=== PATIENT | female | born 1970 | race Caucasian/White ===

== ENCOUNTER 2023-05-11 12:24 | Inpatient (IN) | payer OTHER, SELFPAY ==
[2023-05-11] VITALS (69 sets, daily range): BP systolic 103–134; BP diastolic 57–94; PULSE 89–110; RESP 12–16; TEMP 36.7–37.1; O2SAT 84–99
[2023-05-11 12:47] LABS: Appearance Urine Clear (Clear); Bilirubin Urine Negative (Negative); Blood Urine Negative (Negative); Color Urine Yellow (Yellow); Glucose Urine Negative (Negative); Ketones Urine Negative (Negative); Leukocyte Esterase Urine Negative (Negative); Nitrite Urine Negative (Negative); Protein Urine Negative (Negative); Specific Gravity Urine 1.015 (1.000-1.030); Urobilinogen Urine 0.2 (0.2-1.0)
[2023-05-11 12:56] LABS: Lactate Sepsis w/Reflex* 0.7 mmol/L (0.5-1.9)
[2023-05-11 12:58] LABS: Basophils Percent Auto 0.2 % (0.0-3.0); Eosinophils Percent Auto 0.4 % (0.0-7.0); Hematocrit 42.9 % (33.0-51.0); Hemoglobin* 14.2 gm/dL (12.0-16.0); Immature Granulocytes Pct Auto 0.1 %; Lymphocytes Percent Auto 22.6 % (20-44); Mean Corpuscular HGB Conc 33 gm/dL (32-36); Mean Corpuscular Hemoglobin 30 pg (26-34); Mean Corpuscular Volume 92 fL (80-100); Monocytes Percent Auto 9.2 % (0.0-11.0); Neutrophils Percent Auto 67.5 % (42.0-72.0); Platelet Count* 352 K/uL (140-440); RDW Coefficient of Variation % 11.7 % (11.5-15.5); Red Blood Count 4.69 m/uL (4.00-5.20); White Blood Count* 16.36 K/uL (4.50-11.00)
[2023-05-11 13:01] LABS: Ur HCG Qualitative* Negative (Negative)
--- NOTE | 2023-05-11 13:01 | ED.GENADULT ---
HPI - General Adult General Date Seen: 05/11/23 Chief complaint: Abdominal Pain Stated complaint: Lower R abdominal pain Time Seen by Provider: 05/11/23 12:35 Source: patient and RN notes reviewed Mode of arrival: ambulatory Limitations: no limitations History of Present Illness HPI narrative: Patient is a 52-year-old woman here for evaluation of abdominal pain. She says that she was in [place] last week, driving her parents down to where they stay for the winter. She says that she went to a barbecue place on Monday, Monday night into Monday developed right lower quadrant pain associated with nausea, some vomiting and she did have some diarrhea although she wonders if that is because she was taking MiraLax for constipation. No bloody stools. She had a temp of a 100.1? yesterday. The abdominal pain has persisted which is why she comes in today although it is very mild at this point. She has not had urinary symptoms. She says that in the fall she ate at the same barbecue place and had the exact same thing happened, with the exact same abdominal pain, but it resolved after 3 or 4 days and now it is been close to a week and it has not completely gone away. She denies prior abdominal surgeries. She does not have a history of any pelvic pathology such as ovarian cysts. She says she feels very hungry but she has not been able to think of anything that sounded good to eat so she has just been drinking fluids. Related Data Home Medications Medication Instructions Recorded Confirmed No Known Home Medications 05/11/23 05/11/23 Allergies Allergy/AdvReac Type Severity Reaction Status Date / Time No Known Drug Allergies Allergy Verified 12/01/22 13:55 Review of Systems Status of ROS: Reports: 10 or more systems reviewed and unremarkable except as noted in History and below [facility] Medical History (Updated 05/11/23 @ 14:55 by Ondina Peña MD) Recurrent low back pain ?M54.50 - Low back pain, unspecified (ICD-10) Acute back pain ?M54.9 - Dorsalgia, unspecified (ICD-10) Surgical History (Updated 05/11/23 @ 14:54 by Ondina Peña MD) S/P tonsillectomy ?Z90.89 - Acquired absence of other organs (ICD-10) Social History (Updated 05/11/23 @ 14:54 by Ondina Peña MD) Narrative: Admits to smoking and drinking alcohol at least twice a week. 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 Smoking Status: Current every day smoker How often do you have six or more drinks on one occasion: Never AUDIT-C Alcohol total score: 0 Non-prescribed substance use: denies use Exam Narrative: Exam Narrative: Vital signs as noted above. In general, an alert, well-appearing patient. Head: Normocephalic, atraumatic. Eyes: Pupils are equal reactive. Extraocular movements are full. Conjunctivae are normal. ENT: Mucous membranes are moist. Throat is normal. Neck: Supple without lymphadenopathy. Heart: Regular rate and rhythm. No murmur or rub. Lungs: Clear bilaterally. No increased work of breathing, crackles or wheezes. Abdomen: Soft and nondistended. Bowel sounds present. She has some focal tenderness in the right lower quadrant although she notes that it is most tender to palpate from the lateral edge of the abdomen and not directly over McBurney's point. She does not have rebound guarding or rigidity. No CVA tenderness. Negative Ruffin's. Extremities: Well perfused. No edema. No calf tenderness. Pulses intact. Neurologic: Patient is alert and oriented to person and place. Speech is fluent. Face is symmetric. Moves all extremities equally. Affect: Normal. Skin: Warm and dry. Well perfused. Const: Vital Signs, click to edit/add: Vital Signs - 24 hr 05/11/23 12:30 Temperature 98.0 F Pulse Rate [Pulse Oximeter] 93 Respiratory Rate 16 Blood Pressure [Ri ght Upper Arm] 129/84 Pulse Oximetry 96 Oxygen Delivery Me thod Room Air Documenting provider has reviewed patient's vital signs: yes Course Course ED Course: Recommended to her that we start with some labs, including a UA. With symptoms for almost 2 week if this does represent a somewhat atypical cholecystitis or appendicitis, would expect to see some abnormalities on lab testing. Declines need for anything for pain. Other diagnostic considerations include colitis, diverticulitis, ovarian cyst, UTI, pyelonephritis, kidney stone among others. Labs are notable for a white blood cell count of 16.4, hemoglobin is 14.2, normal platelets. Lactate was normal at 0.7, LFTs unremarkable. Lipase was 111. Urinalysis was negative aside from 2-5 white blood cells, few squames, few bacteria. test negative. Because of the elevated white blood cell count I did elect to do a CT of the abdomen to evaluate her appendix. By my review, there are inflammatory changes in the right lower quadrant and a dilated tubular structure which I suspect is the appendix. Final radiology read pending. Final radiology report of acute uncomplicated appendicitis. Discussed with patient and with general surgery. Transferred operating room for appendectomy. Vital Signs Vital signs: Initial Vital Signs Temperature 98.0 F 05/11/23 12:30 Temperature Source Temporal Artery Scan 05/11/23 12:30 Pulse Rate 93 05/11/23 12:30 Respiratory Rate 16 05/11/23 12:30 Blood Pressure 129/84 05/11/23 12:30 Blood Pressure Mean 99 05/11/23 12:30 Blood Pressure Position Sitting 05/11/23 12:30 Pulse Oximetry 96 05/11/23 12:30 Oxygen Delivery Method Room Air 05/11/23 12:30 Vital Signs Temperature 98.0 F 05/11/23 12:30 Pulse Rate 93 05/11/23 12:30 Respiratory Rate 16 05/11/23 12:30 Blood Pressure 129/84 05/11/23 12:30 Pulse Oximetry 96 05/11/23 12:30 Oxygen Delivery Method Room Air 05/11/23 12:30 Temperature 98.0 F 05/11/23 12:30 Pulse Rate 93 05/11/23 12:30 Respiratory Rate 16 05/11/23 12:30 Blood Pressure 129/84 05/11/23 12:30 Pulse Oximetry 96 05/11/23 12:30 Oxygen Delivery Method Room Air 05/11/23 12:30 Medications Administered Medications: Generic Name Dose Route Start Last Admin Trade Name Freq PRN Reason Stop Dose Admin Lactated Ringer's 1,000 mls @ 100 mls/hr 05/11/23 14:45 05/11/23 14:53 Lactated Ringers 1000 Ml IV 100 mls/hr .Q10H ANTHONY Administration Discontinued Medications Generic Name Dose Route Start Last Admin Trade Name Freq PRN Reason Stop Dose Admin Cefazolin Sodium 2 gm 05/11/23 14:51 05/11/23 15:25 Cefazolin 2 Gm Inj IVP 05/11/23 14:52 2 gm ONCE ONE Administration Medical Decision Making Lab Data Labs: Lab Results 05/11/23 05/11/23 05/11/23 Range/Units 12:40 12:50 12:55 WBC 16.36 H (4.50-11.00) K/uL RBC 4.69 (4.00-5.20) m/uL Hgb 14.2 (12.0-16.0) gm/dL Hct 42.9 (33.0-51.0) % MCV 92 (80-100) fL MCH 30 (26-34) pg MCHC 33 (32-36) gm/dL RDW Coeff of Jenifer 11.7 (11.5-15.5) % Plt Count 352 (140-440) K/uL Neut % (Auto) 67.5 (42.0-72.0) % Lymph % (Auto) 22.6 (20-44) % [place] % (Auto) 9.2 (0.0-11.0) % Eos % (Auto) 0.4 (0.0-7.0) % Baso % (Auto) 0.2 (0.0-3.0) % Neut # (Auto) 11.00 H (1.7-7.0) K/uL Lymph # (Auto) 3.70 H (0.90-2.90) K/uL [place] # (Auto) 1.50 H (0.00-0.90) K/UL Eos # (Auto) 0.10 (0.00-0.50) K/uL Baso # (Auto) 0.00 (0.00-0.30) K/uL Abs Immat Gran (auto) 0.00 (0.00-0.30) K/uL Imm/Tot Granulo (auto) 0.1 % Sodium 134 L (135-149) mmol/L Potassium 4.0 (3.6-5.1) mmol/L Chloride 101 (96-114) mmol/L Carbon Dioxide 28 (20-32) mmol/L Anion Gap 5 L (7-15) mEq/L BUN 8 (7-30) mg/dL Creatinine 0.5 (0.5-1.5) mg/dL Estimated GFR 113 ml/min Glucose 110 (60-115) mg/dL Lactate 0.7 (0.5-1.9) mmol/L Calcium 9.6 (8.4-10.6) mg/dL Total Bilirubin 0.3 (0.1-1.5) mg/dL Direct Bilirubin 0.2 (0.0-0.5) mg/dL AST 24 (12-35) U/L ALT 30 (4-35) U/L Alkaline Phosphatase 121 (40-150) U/L C-Reactive Protein 11.9 H (0.5-1.0) mg/dL Total Protein 7.4 (6.0-8.3) g/dL Albumin 4.3 (3.3-5.0) g/dL Lipase 111 (23-300) U/L Urine Color Yellow (Yellow) Urine Appearance Clear (Clear) Urine pH 6.0 (5.0-8.5) Ur Specific [place] 1.015 (1.000-1.030) Urine Protein Negative (Negative) Urine Glucose (UA) Negative (Negative) Urine Ketones Negative (Negative) Urine Blood Negative (Negative) Urine Nitrite Negative (Negative) Urine Bilirubin Negative (Negative) Urine Urobilinogen 0.2 (0.2-1.0) Ur Leukocyte Esterase Negative (Negative) Urine RBC 0-2 (0-2) Urine WBC 2-5 (0-5) Ur Squamous Epith Cells Few (None-Few) Urine Bacteria Few A (None) Urine HCG, Qual Negative (Negative)
[2023-05-11 13:04] LABS: Bacteria Urine Few; RBC Urine 0-2 (0-2); Squamous Epithelial Cell Urine Few (None-Few)
[2023-05-11 13:04] LABS: Slide Review Reflex No
--- NOTE | 2023-05-11 13:06 | CT_ITS ---
Patient: HOLLY JOHNSON Facility:?[facility] Patient ID:?[id number] Site Patient ID:?[id number]. Site :?[id number] Study:?CT-Abdomen/Pelvis W/ ISOVUE 370-05/11/2023 1:43:02 PM Ordering Physician:ALYSON Final Report: Indication: Right lower quadrant pain Technique: CT abdomen/pelvis with IV contrast, 105 mL Isovue 370 Comparison: None Findings: The lower thorax is unremarkable. The liver, gallbladder, spleen, pancreas, adrenal glands, kidneys, ureters, bladder, uterus, and bilateral ovaries are unremarkable. There is no evidence of bowel obstruction. The appendix is dilated to 2.0 centimeters with moderate periappendiceal inflammatory changes. No periappendiceal abscess. No free fluid or free air. No abdominopelvic lymphadenopathy. The vasculature is unremarkable. The soft tissues and osseous structures are unremarkable. Impression: Acute, uncomplicated appendicitis. Please note that all CT scans at this facility use dose modulation, iterative reconstruction, and/or weight-based dosing when appropriate to reduce radiation dose to as low as reasonably achievable. Dictated by Albert Fernandes MD @ 05/11/2023 1:59:16 PM Signed by:?Albert Fernandes MD @05/11/2023 1:59:16 PM (Electronic Signature)
[2023-05-11 13:15] LABS: Chloride* 101 mmol/L (96-114); Sodium* 134 mmol/L (135-149)
[2023-05-11 13:16] LABS: Albumin* 4.3 g/dL (3.3-5.0)
[2023-05-11 13:17] LABS: Creatinine* 0.5 mg/dL (0.5-1.5); Estimated Glomerular Filt Rate 113 ml/min
[2023-05-11 13:18] LABS: Anion Gap 5 mEq/L (7-15); Blood Urea Nitrogen* 8 mg/dL (7-30); Carbon Dioxide* 28 mmol/L (20-32); Glucose* 110 mg/dL (60-115)
[2023-05-11 13:19] LABS: Alkaline Phosphatase* 121 U/L (40-150); Aspartate Amino Transferase* 24 U/L (12-35); Bilirubin Direct* 0.2 mg/dL (0.0-0.5); Bilirubin Total* 0.3 mg/dL (0.1-1.5); Calcium* 9.6 mg/dL (8.4-10.6); Lipase* 111 U/L (23-300); Total Protein* 7.4 g/dL (6.0-8.3)
[2023-05-11 13:20] LABS: Alanine Aminotransferase* 30 U/L (4-35)
[2023-05-11 13:54] LABS: C Reactive Protein* 11.9 mg/dL (0.5-1.0)
--- NOTE | 2023-05-11 14:51 | PM.GSHP ---
History of Present Illness History of Present Illness Date Seen: 05/11/23 Chief complaint: Lower R abdominal pain Narrative: Regina Saleem is a 52 year old female presented to emergency room with right mid abdominal pain that started last Monday. Patient had a similar episode of pain after eating barbecue dinner and that episode resolved. However this time, the pain continued and remained constant. The pain was described as dull. Patient was not sure what was making the pain worse. She had nausea but no vomiting. She was passing gas. Her last bowel movement was today. Patient decided to come to the emergency room. I reviewed her emergency room workup. She was found to have an elevated WBC of 16.3. An abdominal CT was obtained that showed a largely dilated appendix with periappendiceal inflammation. There was no evidence of an abscess. There might be some thickening of the cecum adjacent to the appendix. There was no evidence of dilated small large intestine. Patient has never had a colonoscopy. She denies family history of colon cancer or polyps. Review of Systems Narrative: General: no fevers CV: no shortness of breath Resp: no cough GI: See above Skin: no new rashes Musculoskeletal: + back pain Neuro: no muscle weakness PFSH PFS Medical History (Updated 05/11/23 @ 14:55 by Ondina Peña MD) Recurrent low back pain ?M54.50 - Low back pain, unspecified (ICD-10) Acute back pain ?M54.9 - Dorsalgia, unspecified (ICD-10) Surgical History (Updated 05/11/23 @ 14:54 by Ondina Peña MD) S/P tonsillectomy ?Z90.89 - Acquired absence of other organs (ICD-10) Social History (Updated 05/11/23 @ 14:54 by Ondina Peña MD) Narrative: Admits to smoking and drinking alcohol at least twice a week. 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 Smoking Status: Current every day smoker Meds Home Medications and Allergies Home Medications Medication Instructions Recorded Confirmed Type No Known Home Medications 05/11/23 05/11/23 History Allergies Allergy/AdvReac Type Severity Reaction Status Date / Time No Known Drug Allergies Allergy Verified 12/01/22 13:55 Exam Narrative: Exam Narrative: General appearance: Alert, cooperative, and in no distress Pulmonary: Chest symmetric, lungs clear bilaterally Cardiovascular Heart: Regular rate and rhythm, S1, S2, no murmurs/rubs/gallops Gastrointestinal Abdominal: soft, not distended, tender to deep palpation in the right mid abdomen with no peritoneal signs. Skin: Normal skin color, texture, and turgor. No rashes or lesions. Psychiatric: Alert, cooperative, normal affect. Const: Vital Signs, click to edit/add: Vital Signs - 24 hr 05/11/23 12:30 Temperature 98.0 F Pulse Rate [Pulse Oximeter] 93 Respiratory Rate 16 Blood Pressure [Ri ght Upper Arm] 129/84 Pulse Oximetry 96 Oxygen Delivery Me thod Room Air Progress Note:A&P Assessment and plan (1) Acute appendicitis: Status: Acute Plan 52-year-old female presents to emergency room with right mid abdominal pain suspicious for acute appendicitis. I discussed with the patient her laboratory and CT findings. The length of time that she had symptoms is unusual for acute appendicitis. Her appendix is also largely dilated with periappendiceal inflammation. I suspect that she could have a mucocele. I discussed with the patient that given her CT findings and her clinical history, I recommended to proceed with laparoscopic appendectomy, possible ileocecectomy, and possible exploratory laparotomy. The procedures were discussed with the patient in detail. The risks associated procedure including infection, bleeding, and the need for additional procedures were all discussed with the patient, and she agreed to proceed.
[2023-05-11] MEDS: LACTATED RINGERS 1000 ML 1,000 ML 100 ML IV ×3 (14:53→18:23)
[2023-05-11] MEDS: CEFAZOLIN 2 GM INJ IVP (15:25)
[2023-05-11] MEDS: ERTAPENEM 1 GM inj IVP (19:00)
--- NOTE | 2023-05-11 19:23 | P.GSOP_ITS ---
Operative Note Date of procedure: 05/11/23 Pre-op diagnosis: 1. Acute appendicitis. Post-op diagnosis: 1. Acute perforated appendicitis with periappendiceal abscess and involvement of the cecum and ascending colon. Type of Procedure: 1. Laparoscopic appendectomy converted to laparoscopic assisted right hemicolectomy. Indications: 52-year-old female presented to emergency room with 1 week of right lower quadrant/right mid abdominal pain. Patient's pain started all of a sudden. It continued for the past several days. She denies any fevers. She was having regular bowel movements. Since the pain was not going away, patient decided to present to emergency room. In the emergency room she was found to have an elevated WBC of 16. An abdominal CT was obtained that showed a dilated appendix measuring 2 cm with periappendiceal inflammation. There was no evidence of periappendiceal abscess. The inflammation appeared to extend onto the cecum but the extent of cecal inflammation was difficult to define. On clinical exam patient had tenderness to palpation in the right mid abdomen with no peritonitis. Given patient's clinical history and her physical exam, laparoscopic appendectomy with possible ileocecectomy and possible exploratory laparotomy were discussed with the patient. The procedure was discussed in detail. The risks associated procedure including infection, bleeding, injury to intra-abdominal organs, and the need to convert to open procedure were all discussed with the patient, and she agreed to proceed. Procedure Description: After discussing the risks and benefits of the procedure, the patient signed informed consent.? The operative site was marked and the patient was brought to the operating room and placed on the operating table in supine position.? Care was taken to pad the patient's pressure points.?? The patient was then intubated by anesthesia.? Sheldon catheter was placed under sterile conditions.? The operative site was then prepped and draped in the usual sterile fashion.? A time-out was then performed. A 5-mm laparoscopy port was placed in the left upper quadrant guided by a 5-mm laparoscope placed into a translucent trochar. Passage through the layers of the abdominal wall was visualized with the laparoscope. A pneumoperitoneum was established. A 30-degree 5-mm laparoscope was advanced into the abdomen. The abdomen was briefly surveyed, and there was no evidence of diffuse peritonitis. A 12-mm port and a 5-mm port were placed in the left low quadrant and suprapubically, respectively, under direct visualization by laparoscope. Left upper quadrant entrance port was then examined intraabdominally by placing the camera through the left lower quadrant port and no intraabdominal injury was seen. The patient was placed in Trendelenburg position, allowing the abdominal contents to shift cephalad. The small bowel was moved toward the midline. Appendix was not visualized. The lateral cecum was firm to palpation and was tightly adherent to the peritoneum. I suspected that the appendix was in that area of firmness. The peritoneum adjacent to the firm cecum was divided with Harmonic scalpel in attempt to mobilize the lateral side of the cecum off the abdominal wall. However, dividing the peritoneum at the white line of Toldt on the left and extending this peritoneal incision towards the liver did not create adequate space to be able to visualize the appendix. Given the large dilation of the appendix on the CT scan and the length of time that this inflammation was present, I did not think I would be successful with mobilizing the appendix off the cecum, and elected to proceed with mobilizing the right colon for ileocecectomy. The omentum was adherent to the medial side of the ascending colon. Those adhesions were taken down with Harmonic scalpel. The gastrocolic ligament was then incised in the proximal transverse colon with Harmonic scalpel. An additional 5 mm port was placed suprapubically under direct visualization to assist with dissection. The transverse colon was retracted caudad and the gastrocolic ligament was divided completely. This dissection was carried from mid transverse colon towards the hepatic flexure mobilizing the hepatic flexure of the colon. Posterior retroperitoneal attachments of the colonic mesentery were also divided with Harmonic scalpel making the colon more mobile. Care was taken not to divide colonic mesentery. Duodenum was visualized and care was taken not to injury it. The peritoneum of the hepatic flexure was divided with Harmonic scalpel and this dissection was carried then towards the cecum. When the cecum and ascending colon were mobile, and they were retracted medially, I was still not able to see the plane between the appendix, and the appendix was not clearly visualized. There was a firm mass on the lateral side of the cecum extending into the mid ascending colon. With gentle retraction of this firm mass, purulent fluid came out from a periappendiceal abscess. This was suctioned out. Small balls of stool also came out from this appendiceal perforation. The stool was collected and removed from the abdomen. The terminal ileum was adherent to the lateral abdominal wall. Those adhesions were taken down with Harmonic scalpel. This dissection was difficult due to abundance of intra- abdominal fat. At this time the right colon and hepatic flexure were mobile. The colonic mesentery was not divided. I elected to proceed with the open portion of the procedure. The cecal epiploic fat was grasped with a laparoscopic grasper. All laparoscopic ports were then removed and a periumbilical midline laparotomy incision was made with a scalpel. Subcutaneous fat was divided with cautery down to the anterior fascia. The anterior fascia was then grasped with Parveen clamps and incised with cautery. The posterior sheath and peritoneum were also entered with cautery. The abdomen was entered and the midline laparotomy incision was then extended superiorly and inferiorly. A large Scotty retractor was placed into the incision. The cecum was then eviscerated and laparoscopic grasper was then removed. Additional mobilization of the ascending colon and hepatic flexure were needed to be able to eviscerate the right colon. The terminal ileum needed to be mobilized further by dividing peritoneum laterally. This allowed mobilization of the terminal ileum for future anastomosis. The cecum and the firm inflamed appendix was examined, and 2 clear perforations were seen in the appendix. No clear plane was seen between the appendix and the right colon. This firm inflamed mass extended to the mid ascending colon. I elected to then proceed with the right hemicolectomy in order to remove the entire inflamed mass and have tension-free anastomosis. The colonic mesentery of the ascending colon was then divided with Harmonic scalpel. The ileocolic vascular pedicle was then clamped with clamps and tied with Vicryl ties. The ileocolic mesentery was thickened was palpable lymphadenopathy. The terminal ileum mesentery was also divided with Harmonic scalpel just distally. The terminal ileum was then stapled with blue load TEODORO stapler a few cm proximal to the ileocecal valve. The ascending colon was then stapled with a blue load of TEODORO stapler just proximal to the hepatic flexure. The specimen was then removed and sent to pathology as right colon. Hemostasis was achieved with cautery and Vicryl ties. The terminal ileum and hepatic flexure staple lines had bleeding and that was controlled with 3-0 silk sutures. We then proceeded with side to side functional end to end anastomosis. A stay suture was placed to align terminal ileum and hepatic flexure of the transverse colon. Care was taken to make sure that colonic mesentery and small bowel mesentery were not twisted. A colotomy was made and an enterotomy was made with cautery. Small amount of stool was noted to come out from the large intestine, and that was suctioned out. A [id number] anastomosis was then made with 100 mm of blue load TEODORO stapler. The staple line was examined from the inside, and no bleeding was seen from the staple line. The common enterotomy was then closed with 3-0 silk pop-off sutures using Lambert stitches. The staple line was also reinforced anteriorly with interrupted 3-0 silk sutures. A crotch stitch was placed with a silk suture. Anastomosis was widely patent on palpation and was well perfused. The mesenteric defect was then closed with a running 3-0 Vicryl suture. The anastomosis was then placed into the abdomen. All dirty towels and dirty instruments were removed from the field. Surgeon and assistants changed gloves and Scotty retractor was removed. The abdomen was then irrigated with warm normal saline. No bleeding was seen in the surgical field. Anastomosis was placed on the right side and covered by omentum. NG tube was placed by Anesthesia and the tip of the NG tube was palpable in the body of the stomach. We then proceeded with abdominal closure. The anterior fascia of the midline laparotomy incision was closed with 2 running 0-0 Maxon sutures. Subcutaneous space of the midline laparotomy incision was irrigated with normal saline. The dermis of midline laparotomy incision was then reapproximated with interrupted 3-0 Vicryl sutures. The fascia of the left lower quadrant 11 mm laparoscopic incision was closed with a [id number] 0-0 Vicryl suture. The skin of all laparoscopic incisions was closed with 4-0 Monocryl stitch. The skin of the midline laparotomy incision was closed with maryam. Sterile dressings were applied over all the incisions. All counts were correct at the end of the case. The patient tolerated this procedure well and was transferred to PACU in stable condition. Findings: Perforated appendicitis tightly adherent to the cecum and mid ascending colon with periappendiceal abscess. Anesthesia: GETA Surgeon: Ondina Peña MD Estimated blood loss (mL): 100 Additional Specimen Information: 1. Right colon. Condition: stable Disposition: PACU
--- NOTE | 2023-05-11 19:35 | W.PM.NB ---
Nerve Block Nerve Block Time Seen by Provider: 19:00 Date Seen: 05/11/23 Type of block requested by surgeon for post-operative analgesia: TAP Side: bilateral Time out performed: Yes Verification of patient name: Yes Verification of date of : Yes Site marking: site marked Name of person performing procedure: Phill Blum Continuous monitoring Was continuous monitoring of O2 sat, B/P, playground monitor, recorded every 15 minutes?: Yes Procedure Checklist: sterile prep, needles and gloves Ultrasound guided. Images saved: Yes Medications given in 5ml increments after negative aspiration: Marcaine %: 0.25 mL: 30 Needle gauge: 20 Patient tolerated procedure well: Yes Additional comments: Injected in 5ml increments after negative aspiration Block Charges Block Charge (with Pro Fee): TAP Bilateral Use of Ultrasound Machine for Block: Yes- US Guidance/pain block
--- NOTE | 2023-05-11 19:36 | W.ANESCHARGE ---
Anesthesia Charges Start Date/Time Anesthesia Start Date: 05/11/23 Anesthesia Start Time: 15:10 Stop Date/Time Anesthesia Stop Date: 05/11/23 Anesthesia Stop Time: 19:28
[2023-05-11] MEDS: fentaNYL 100 MCG/2 ML inj 50 MCG IVP ×2 (19:45→20:00)
[2023-05-11] MEDS: HYDROmorphone 0.5 mg/0.5 ml inj IVP ×2 (21:09→22:06)
[2023-05-11] MEDS: SODIUM CHLORIDE 0.9 % (FLUSH) 10 ML SYRINGE IVF ×2 (21:09→22:06)
[2023-05-11] MEDS: NICOTINE 21 MG PATCH 1 PATCH TRANSDERMA (22:07)
[2023-05-12] VITALS (11 sets, daily range): BP systolic 94–145; BP diastolic 59–96; PULSE 96–111; RESP 16–20; TEMP 36.8–37.4; O2SAT 90–95
[2023-05-12] MEDS: HYDROmorphone 0.5 mg/0.5 ml inj IVP ×7 (00:09→21:19)
[2023-05-12] MEDS: SODIUM CHLORIDE 0.9 % (FLUSH) 10 ML SYRINGE IVF ×4 (00:10→06:18)
[2023-05-12] MEDS: LACTATED RINGERS 1000 ML 1,000 ML 100 ML IV ×3 (01:08→22:10)
[2023-05-12] MEDS: HYDROCODONE-ACETAMIN 5-325 MG 1 TAB PO ×4 (02:20→22:16)
[2023-05-12] MEDS: ONDANSETRON 2 MG/ML inj IVP ×3 (02:20→22:16)
[2023-05-12 06:20] LABS: Basophils Percent Auto 0.1 % (0.0-3.0); Hematocrit 41.5 % (33.0-51.0); Hemoglobin* 13.4 gm/dL (12.0-16.0); Immature Granulocytes Pct Auto 0.4 %; Lymphocytes Percent Auto 10.7 % (20-44); Mean Corpuscular HGB Conc 32 gm/dL (32-36); Mean Corpuscular Hemoglobin 30 pg (26-34); Mean Corpuscular Volume 94 fL (80-100); Monocytes Percent Auto 8.9 % (0.0-11.0); Neutrophils Percent Auto 79.9 % (42.0-72.0); Platelet Count* 211 K/uL (140-440); Red Blood Count 4.44 m/uL (4.00-5.20); White Blood Count* 19.83 K/uL (4.50-11.00)
[2023-05-12 06:26] LABS: Chloride* 101 mmol/L (96-114); Potassium* 4.6 mmol/L (3.6-5.1); Sodium* 135 mmol/L (135-149)
--- NOTE | 2023-05-12 06:27 | PC.NURSE ---
Pt arrived to floor from pacu approx 2014 in stable condition, c/o abdominal pain 6/10 and requiring 5 LMP O2 to maintain O2 sats >90%. As night progressed titrated pt to 1LPM O2 to maintain sats >90%, attempted RA but pt desats to mid 80's, encouraged patient to deep breath which patient found difficult to do due to increased pain, educated on importance of deep breathing to help maintain sats and prevent pneumonia, pt acknowledged and informed nurse she will continue to work on it. placed pt back on 1lpm o2 so pt could rest. midline dressing C/D/I, left abd lap sites with steri-strips c/d/i, right abd lap site open to air, closed, intact. bowel sounds extremely hypoactive/absent. Ice placed on abdomen. No nausea or vomiting during the night, NG tube in place to LIS, no output. pink in place, patent and draining, adequate urine output during shift. Pain was difficult to control during the night, pt rated 6-9/10, per pt prn dilaudid did not help with pain control, she became drowsy but appeared uncomfortable, eventually gave prn norco which was more effective per pt and pt was able to sleep for a bit. Pt denies passing gas.
[2023-05-12 06:29] LABS: Anion Gap 5 mEq/L (7-15); Blood Urea Nitrogen* 7 mg/dL (7-30); Carbon Dioxide* 29 mmol/L (20-32); Creatinine* 0.5 mg/dL (0.5-1.5); Est. Creatinine Clearance* 105.28; Estimated Glomerular Filt Rate 113 ml/min
[2023-05-12 06:30] LABS: Calcium* 8.8 mg/dL (8.4-10.6); Glucose* 126 mg/dL (60-115)
[2023-05-12 06:31] LABS: Slide Review Reflex No
--- NOTE | 2023-05-12 10:15 | P.GSPN_ITS ---
Subjective Subjective Date Seen: 05/12/23 Interval history: Patient is doing well today. She had struggles with pain control last night. She was started on p.o. pain medications to allow better pain control. She states that it helped better. She had at least 450 mL of urine since midnight. She denies nausea vomiting. She denies passing gas. She was not out of bed yet. NG tube is putting out minimal amount of clear fluid. Exam 2 Narrative: Exam Narrative: Abdomen is soft, not distended, tender to palpation throughout, laparoscopic incisions are covered with clean Steri-Strips and clean dressing is over the midline incision. Const: Vital Signs, click to edit/add: Vital Signs - 24 hr 05/11/23 12:30 05/11/23 14:16 05/11/23 14:17 Temperature 98.0 F Pulse Rate 93 91 Pulse Rate [Pulse Oximeter] 93 Respiratory Rate 16 Blood Pressure 114/57 L Blood Pressure [Ri ght Arm] Blood Pressure [Ri ght Upper Arm] 129/84 Pulse Oximetry 96 96 96 Oxygen Delivery Me thod Room Air Oxygen Flow Rate 05/11/23 14:18 05/11/23 14:19 05/11/23 14:20 Temperature Pulse Rate 92 93 90 Pulse Rate [Pulse Oximeter] Respiratory Rate Blood Pressure Blood Pressure [Ri ght Arm] Blood Pressure [Ri ght Upper Arm] Pulse Oximetry 97 96 96 Oxygen Delivery Me thod Oxygen Flow Rate 05/11/23 14:21 05/11/23 14:22 05/11/23 14:23 Temperature Pulse Rate 91 90 89 Pulse Rate [Pulse Oximeter] Respiratory Rate Blood Pressure Blood Pressure [Ri ght Arm] Blood Pressure [Ri ght Upper Arm] Pulse Oximetry 97 99 98 Oxygen Delivery Me thod Oxygen Flow Rate 05/11/23 14:24 05/11/23 14:25 05/11/23 14:26 Temperature Pulse Rate 90 97 93 Pulse Rate [Pulse Oximeter] Respiratory Rate Blood Pressure Blood Pressure [Ri ght Arm] Blood Pressure [Ri ght Upper Arm] Pulse Oximetry 97 97 96 Oxygen Delivery Me thod Oxygen Flow Rate 05/11/23 14:27 05/11/23 14:28 05/11/23 14:29 Temperature Pulse Rate 92 93 92 Pulse Rate [Pulse Oximeter] Respiratory Rate Blood Pressure Blood Pressure [Ri ght Arm] Blood Pressure [Ri ght Upper Arm] Pulse Oximetry 97 97 96 Oxygen Delivery Me thod Oxygen Flow Rate 05/11/23 14:30 05/11/23 14:31 05/11/23 14:32 Temperature Pulse Rate 94 93 94 Pulse Rate [Pulse Oximeter] Respiratory Rate Blood Pressure 105/65 Blood Pressure [Ri ght Arm] Blood Pressure [Ri ght Upper Arm] Pulse Oximetry 98 97 96 Oxygen Delivery Me thod Oxygen Flow Rate 05/11/23 14:33 05/11/23 14:35 05/11/23 14:36 Temperature Pulse Rate 94 94 97 Pulse Rate [Pulse Oximeter] Respiratory Rate Blood Pressure Blood Pressure [Ri ght Arm] Blood Pressure [Ri ght Upper Arm] Pulse Oximetry 95 96 97 Oxygen Delivery Me thod Oxygen Flow Rate 05/11/23 14:37 05/11/23 14:38 05/11/23 14:39 Temperature Pulse Rate 93 93 96 Pulse Rate [Pulse Oximeter] Respiratory Rate Blood Pressure Blood Pressure [Ri ght Arm] Blood Pressure [Ri ght Upper Arm] Pulse Oximetry 96 96 97 Oxygen Delivery Me thod Oxygen Flow Rate 05/11/23 14:40 05/11/23 14:41 05/11/23 14:42 Temperature Pulse Rate 95 97 92 Pulse Rate [Pulse Oximeter] Respiratory Rate Blood Pressure Blood Pressure [Ri ght Arm] Blood Pressure [Ri ght Upper Arm] Pulse Oximetry 96 96 97 Oxygen Delivery Me thod Oxygen Flow Rate 05/11/23 14:43 05/11/23 14:44 05/11/23 14:45 Temperature Pulse Rate 91 92 96 Pulse Rate [Pulse Oximeter] Respiratory Rate Blood Pressure Blood Pressure [Ri ght Arm] Blood Pressure [Ri ght Upper Arm] Pulse Oximetry 97 96 96 Oxygen Delivery Me thod Oxygen Flow Rate 05/11/23 14:46 05/11/23 14:47 05/11/23 14:48 Temperature Pulse Rate 93 94 94 Pulse Rate [Pulse Oximeter] Respiratory Rate Blood Pressure Blood Pressure [Ri ght Arm] Blood Pressure [Ri ght Upper Arm] Pulse Oximetry 97 98 97 Oxygen Delivery Me thod Oxygen Flow Rate 05/11/23 14:49 05/11/23 14:50 05/11/23 14:51 Temperature Pulse Rate 93 92 97 Pulse Rate [Pulse Oximeter] Respiratory Rate Blood Pressure Blood Pressure [Ri ght Arm] Blood Pressure [Ri ght Upper Arm] Pulse Oximetry 97 97 95 Oxygen Delivery Me thod Oxygen Flow Rate 05/11/23 14:52 05/11/23 14:53 05/11/23 14:54 Temperature Pulse Rate 101 H 96 94 Pulse Rate [Pulse Oximeter] Respiratory Rate Blood Pressure Blood Pressure [Ri ght Arm] Blood Pressure [Ri ght Upper Arm] Pulse Oximetry 97 95 96 Oxygen Delivery Me thod Oxygen Flow Rate 05/11/23 14:55 05/11/23 14:56 05/11/23 14:57 Temperature Pulse Rate 93 97 94 Pulse Rate [Pulse Oximeter] Respiratory Rate Blood Pressure Blood Pressure [Ri ght Arm] Blood Pressure [Ri ght Upper Arm] Pulse Oximetry 96 96 95 Oxygen Delivery Me thod Oxygen Flow Rate 05/11/23 14:58 05/11/23 14:59 05/11/23 15:00 Temperature Pulse Rate 93 91 93 Pulse Rate [Pulse Oximeter] Respiratory Rate Blood Pressure Blood Pressure [Ri ght Arm] Blood Pressure [Ri ght Upper Arm] Pulse Oximetry 95 95 96 Oxygen Delivery Me thod Oxygen Flow Rate 05/11/23 15:01 05/11/23 15:02 05/11/23 15:03 Temperature Pulse Rate 89 89 91 Pulse Rate [Pulse Oximeter] Respiratory Rate Blood Pressure 120/74 Blood Pressure [Ri ght Arm] Blood Pressure [Ri ght Upper Arm] Pulse Oximetry 96 97 96 Oxygen Delivery Me thod Oxygen Flow Rate 05/11/23 15:04 05/11/23 15:05 05/11/23 15:06 Temperature Pulse Rate 93 94 90 Pulse Rate [Pulse Oximeter] Respiratory Rate Blood Pressure Blood Pressure [Ri ght Arm] Blood Pressure [Ri ght Upper Arm] Pulse Oximetry 97 96 96 Oxygen Delivery Me thod Oxygen Flow Rate 05/11/23 19:24 05/11/23 19:30 05/11/23 19:35 Temperature 98.7 F 98.7 F Pulse Rate 110 H 109 H 100 Pulse Rate [Pulse Oximeter] Respiratory Rate 12 12 12 Blood Pressure 126/94 H 123/92 H 125/68 Blood Pressure [Ri ght Arm] Blood Pressure [Ri ght Upper Arm] Pulse Oximetry 99 92 92 Oxygen Delivery Me thod Nasal Cannula Nasal Cannula Oxygen Flow Rate 10 05/11/23 19:40 05/11/23 19:45 05/11/23 19:50 Temperature 98.7 F 98.7 F Pulse Rate 104 H 107 H 106 H Pulse Rate [Pulse Oximeter] Respiratory Rate 12 12 12 Blood Pressure 122/83 134/82 133/80 Blood Pressure [Ri ght Arm] Blood Pressure [Ri ght Upper Arm] Pulse Oximetry 92 96 97 Oxygen Delivery Me thod Nasal Cannula Room Air Nasal Cannula Oxygen Flow Rate 10 10 05/11/23 19:55 05/11/23 19:58 05/11/23 19:59 Temperature Pulse Rate 107 H 108 H 108 H Pulse Rate [Pulse Oximeter] Respiratory Rate 14 Blood Pressure 117/87 Blood Pressure [Ri ght Arm] Blood Pressure [Ri ght Upper Arm] Pulse Oximetry 92 87 L 84 L Oxygen Delivery Me thod Nasal Cannula Nasal Cannula Oxygen Flow Rate 10 10 05/11/23 20:00 05/11/23 20:05 05/11/23 20:11 Temperature 98.4 F Pulse Rate 104 H 106 H Pulse Rate [Pulse Oximeter] Respiratory Rate 14 14 Blood Pressure 127/86 117/73 126/84 Blood Pressure [Ri ght Arm] Blood Pressure [Ri ght Upper Arm] Pulse Oximetry 92 92 95 Oxygen Delivery Me thod Nasal Cannula Room Air OxyMask Oxygen Flow Rate 10 5 05/11/23 20:30 05/11/23 20:45 05/11/23 21:00 Temperature 98.4 F 98.4 F 98.3 F Pulse Rate 102 H 103 H 100 Pulse Rate [Pulse Oximeter] Respiratory Rate 16 16 16 Blood Pressure 127/81 118/78 121/84 Blood Pressure [Ri ght Arm] Blood Pressure [Ri ght Upper Arm] Pulse Oximetry 96 96 97 Oxygen Delivery Me thod OxyMask OxyMask OxyMask Oxygen Flow Rate 5 3 3 05/11/23 21:30 05/11/23 22:00 05/11/23 23:00 Temperature 98.3 F 98.1 F Pulse Rate 97 97 99 Pulse Rate [Pulse Oximeter] Respiratory Rate 16 16 16 Blood Pressure 123/77 124/86 103/65 Blood Pressure [Ri ght Arm] Blood Pressure [Ri ght Upper Arm] Pulse Oximetry 97 94 96 Oxygen Delivery Me thod OxyMask OxyMask OxyMask Oxygen Flow Rate 1 1 1 05/12/23 00:00 05/12/23 01:00 05/12/23 02:00 Temperature 98.5 F 98.4 F 98.2 F Pulse Rate 101 H 100 96 Pulse Rate [Pulse Oximeter] Respiratory Rate 16 18 18 Blood Pressure 101/66 108/68 94/59 L Blood Pressure [Ri ght Arm] Blood Pressure [Ri ght Upper Arm] Pulse Oximetry 95 95 95 Oxygen Delivery Me thod OxyMask OxyMask OxyMask Oxygen Flow Rate 1 1 1 05/12/23 02:57 05/12/23 08:19 05/12/23 08:19 Temperature 98.6 F 98.5 F Pulse Rate Pulse Rate [Pulse Oximeter] 98 102 H 102 H Respiratory Rate 20 20 20 Blood Pressure Blood Pressure [Ri ght Arm] 95/70 109/72 Blood Pressure [Ri ght Upper Arm] Pulse Oximetry 95 93 Oxygen Delivery Me thod OxyMask Room Air Oxygen Flow Rate 1 Progress Note:A&P Assessment and plan (1) S/P right hemicolectomy: Status: Acute Plan 52-year-old female s/p laparoscopic converted to open right hemicolectomy for perforated acute appendicitis POD 1. Patient is on 1 L of oxygen and will work on weaning that off. NG tube will stay in today. She is on IV ertapenem for perforated appendicitis with darwin stool contamination. I expect her to have an ileus. Will remove her Sheldon catheter today. Patient needs to ambulate as much as possible to improve her oxygenation. We will start her on Lovenox for DVT prophylaxis.
--- NOTE | 2023-05-12 12:33 | PM.ANPOST ---
Post Anesthesia Note Post Anesthesia Note Patient seen: Inpatient Respiratory Status: adequate Cardiovascular Status: adequate Mental Status: baseline Pain: adequate Temp: baseline Anesthetic awareness: no Complications: other (left hand numbness; can feel touch but states it is numb; equal grasp strength) Follow care: other (Informed patient to continue to update her primary MD while inpatient and they can contact the anesthesia department with questions as needed )
[2023-05-12] MEDS: ENOXAPARIN 40 MG/0.4 ML INJ SUBCUT (18:29)
--- NOTE | 2023-05-12 18:34 | PC.NURSE ---
End of Shift: Patient pleasant and cooperative. Patient vitally stable, lungs rhonchi/wheezes with ambulation, BS WNL, IV running LR at 100. Patient on 1 L NC with sats in low 90s. Patient rates abdominal pain at most 8/10, lowest 6/10, 2 tabs of norco given x3, 0.5 dilauded given once, and zophran given once. Patient has urinated and tolerating sips and chips. Patient abdominal lap sites and midline incision C/D/I. Patient has walked the halls once but has also ambulated with in the room and was up in the recliner for a good amount of time.
[2023-05-12] MEDS: ERTAPENEM 1 GM in 0.9 % SODIUM CHLORIDE Mini-bag 100 ML IVPB (19:54)
[2023-05-12] MEDS: NICOTINE 21 MG PATCH 1 PATCH TRANSDERMA (22:09)
[2023-05-12] MEDS: 0.9 % SODIUM CHLORIDE 1000 ml 1,000 ML IV (23:46)
[2023-05-12 23:53] LABS: Hemoglobin* 12.2 gm/dL (12.0-16.0)
[2023-05-13] VITALS (8 sets, daily range): BP systolic 105–121; BP diastolic 66–77; PULSE 95–110; RESP 18–22; TEMP 36.6–37.4; O2SAT 89–95
[2023-05-13] MEDS: HYDROmorphone 0.5 mg/0.5 ml inj IVP (03:05)
[2023-05-13] MEDS: LACTATED RINGERS 1000 ML 1,000 ML 150 ML IV ×3 (06:12→20:13)
[2023-05-13] MEDS: HYDROCODONE-ACETAMIN 5-325 MG 1 TAB PO ×3 (06:14→19:04)
--- NOTE | 2023-05-13 06:36 | PC.NURSE ---
End of shift [id number]: A&O, pleasant and cooperative. HR low 100s-113 at rest. Placed on 1.5L of oxygen to maintain sats >88%. VS otherwise stable. MD updated.?new orders. See eMAR for interventions. Pt denies SOB or chest pain. Abdomen non distended but tender to touch. BS hypoactive and pt is not passing gas. Ambulated x2 in jenkins this shift. NG in place and draining serosanguineous fluid. Rating pain in abdomen 6-09/12. See eMAR for interventions. Ice pack to abdomen. Denies v/v. SBA while ambulating. Voiding adequate amounts. Encouraged to use IS and deep breathe.
--- NOTE | 2023-05-13 09:25 | XR_ITS ---
Patient: HOLLY JOHNSON Facility:?[facility] Patient ID:?[id number] Site Patient ID:?[id number]. Site :?[id number] Study:?XRay-Chest PORTABLE-05/13/2023 9:49:26 AM Ordering Physician:?DR. ECHEVERRIA Final Report: INDICATION: Hypoxia TECHNIQUE: Single view chest. FINDINGS: The lungs are clear. The heart, mediastinum and pulmonary vessels are of normal size. There is no evidence of pleural disease. Low lung volumes. Enteric tube below the inferior field of view. Right hemidiaphragm mildly elevated. IMPRESSION: Negative chest. Dictated by Mae Stearns MD @ 05/13/2023 10:00:04 AM Signed by:?Mae Stearns MD @05/13/2023 10:00:04 AM (Electronic Signature)
--- NOTE | 2023-05-13 09:28 | PM.GSPN ---
Subjective Subjective Date Seen: 05/13/23 Interval history: Patient remained tachycardic yesterday and overnight last night. Received 1 bolus of normal saline with tachycardia slightly improving. She continued to be on 1 L of oxygen and her sats on 1-1.5 L of oxygen are in high 80s low 90s. Patient's hemoglobin was rechecked and was 12.2 yesterday down from 13 the morning of the same day. Patient's urine output was 600 mL in the last 4 hours. She ambulated yesterday 5 times. She states that her pain is better controlled. She is taking 2 Sterling every 6 hours and feels that the pain is better when Sterling starts working and she falls asleep. She denies passing gas. She is not sure if she feels anxious about her hospital stay but would definitely like this to be over. She denies chest pain and shortness of breath. Exam Narrative: Exam Narrative: Abdomen is soft, not distended, tender to palpation throughout but the tenderness is improved when compared to yesterday's exam. Her midline laparotomy incision is with intact maryam and no surrounding erythema. Const: Vital Signs, click to edit/add: Vital Signs - 24 hr 05/12/23 11:34 05/12/23 15:00 05/12/23 15:00 Temperature 98.8 F 99.3 F Pulse Rate [Pulse Oximeter] 98 104 H 104 H Respiratory Rate 18 16 16 Blood Pressure [Ri ght Arm] 131/82 145/96 H Pulse Oximetry 90 93 Oxygen Delivery Me thod Nasal Cannula Room Air Oxygen Flow Rate 1 05/12/23 19:41 05/12/23 22:54 05/12/23 23:13 Temperature 98.8 F Pulse Rate [Pulse Oximeter] 108 H 107 H 107 H Respiratory Rate 18 18 18 Blood Pressure [Ri ght Arm] 111/68 123/79 Pulse Oximetry 91 90 Oxygen Delivery Me thod Nasal Cannula Nasal Cannula Oxygen Flow Rate 1 1.5 05/12/23 23:35 05/13/23 01:00 05/13/23 03:00 Temperature 98.4 F 98.1 F Pulse Rate [Pulse Oximeter] 111 H 108 H 101 H Respiratory Rate 18 18 Blood Pressure [Ri ght Arm] 117/71 Pulse Oximetry 91 90 89 Oxygen Delivery Me thod Nasal Cannula Oxygen Flow Rate 1.5 1.5 1.5 05/13/23 07:00 05/13/23 07:00 Temperature 99.3 F Pulse Rate [Pulse Oximeter] 110 H 110 H Respiratory Rate 20 20 Blood Pressure [Ri ght Arm] 121/73 Pulse Oximetry 90 Oxygen Delivery Me thod Nasal Cannula Oxygen Flow Rate 1.5 Progress Note:A&P Assessment and plan (1) S/P right hemicolectomy: Status: Acute Plan 52-year-old female s/p laparoscopic converted to open right hemicolectomy for perforated appendicitis POD 2. Patient's tachycardia is not completely explained. She is not anemic with a last hemoglobin of 12. She has been receiving maintenance fluid and received a bolus of normal saline last night with mild improvement in tachycardia. Her IV fluids are running now at 150/ hour. With normal blood pressure and tachycardia and no abdominal distension, I do not suspect intra-abdominal bleeding. Patient denies chest pain or shortness of breath but is not able to take a deep breath due to pain. Will check EKG and troponin. On my review of chest x-ray (patient is a smoker) her lungs are clear. Will repeat her labs today as well. The most likely explanation for her tachycardia is systemic inflammatory response syndrome due to perforated appendicitis with stool spillage. She my have component of anxiety and pain that is playing a role in her tachycardia as well. Patient is on IV antibiotics. Her NG tube has been putting out only small amounts of clear fluid. Will leave the NG clamped today and see how the patient does. She does not have return of bowel function yet. Patient will continue ambulating. Patient is on Lovenox for DVT prophylaxis. I also asked the hospitalist team to evaluate this patient's tachycardia to make sure that we are not missing anything.
[2023-05-13 09:41] LABS: Basophils Percent Auto 0.3 % (0.0-3.0); Eosinophils Percent Auto 0.1 % (0.0-7.0); Hematocrit 36.5 % (33.0-51.0); Hemoglobin* 11.6 gm/dL (12.0-16.0); Immature Granulocytes Pct Auto 0.3 %; Lymphocytes Percent Auto 12.4 % (20-44); Mean Corpuscular HGB Conc 32 gm/dL (32-36); Mean Corpuscular Hemoglobin 30 pg (26-34); Mean Corpuscular Volume 95 fL (80-100); Monocytes Percent Auto 8.3 % (0.0-11.0); Neutrophils Percent Auto 78.6 % (42.0-72.0); Platelet Count* 319 K/uL (140-440); RDW Coefficient of Variation % 12.2 % (11.5-15.5); Red Blood Count 3.86 m/uL (4.00-5.20); White Blood Count* 15.29 K/uL (4.50-11.00)
[2023-05-13 09:44] LABS: Slide Review Reflex No
[2023-05-13 10:01] LABS: Chloride* 103 mmol/L (96-114); Potassium* 4.2 mmol/L (3.6-5.1); Sodium* 135 mmol/L (135-149)
[2023-05-13 10:04] LABS: Anion Gap 1 mEq/L (7-15); Blood Urea Nitrogen* 9 mg/dL (7-30); Carbon Dioxide* 31 mmol/L (20-32); Creatinine* 0.6 mg/dL (0.5-1.5); Est. Creatinine Clearance* 87.73; Estimated Glomerular Filt Rate 109 ml/min; Glucose* 96 mg/dL (60-115); Phosphorus* 2.7 mg/dL (2.5-4.5)
[2023-05-13 10:05] LABS: Calcium* 8.8 mg/dL (8.4-10.6); Magnesium* 2.1 mg/dL (1.5-2.6)
[2023-05-13 10:20] LABS: Troponin I* < 0.01 ng/mL (0.01-0.04)
--- NOTE | 2023-05-13 10:52 | CT_ITS ---
Patient: HOLLY JOHNSON Facility:?[facility] Patient ID:?[id number] Site Patient ID:?[id number]. Site :?[id number] Study:?CT-Chest PE 95CC ISOVUE 370-05/13/2023 11:57:55 AM Ordering Physician:CARL CASTILLO Final Report: INDICATION: TACHY, HYPOXIC, POST OP APPY 05/10/22 RECENT TRAVEL (sic) COMPARISON: None available. TECHNIQUE: CT pulmonary angiography with 95 cc of Isovue 370 intravenous contrast. Please note that all CT scans at this facility use dose modulation, iterative reconstruction, and/or weight-based dosing when appropriate to reduce radiation dose to as low as reasonably achievable. FINDINGS: Pulmonary Arterial Vasculature: Opacification of the pulmonary arterial tree is adequate. No intraluminal pulmonary arterial filling defect is identified to indicate a pulmonary embolism. Visualized Lower Neck: No lower cervical adenopathy. Mediastinum: Thoracic aorta and pulmonary trunk are normal in caliber. Cardiomegaly. Trachea and esophagus are normal in appearance. Well-positioned nasogastric tube. There is no mediastinal lymphadenopathy. Lungs and Pleura: Paramediastinal partial atelectasis of the right upper lobe. Bilateral lower lobe partial atelectasis. No significant consolidation. Tiny dependent bilateral pleural effusions. No pneumothorax. Skeleton: No significant osseous findings. Thoracic soft tissues: Unremarkable. No axillary adenopathy. Visualized Upper Abdomen: No significant findings. Hyperdense material within the gallbladder lumen is consistent with vicarious excretion of contrast related to the recent prior CT of the abdomen and pelvis dated 05/11/2023. IMPRESSION: No evidence of pulmonary embolism. Right upper lobe and bilateral lower lobe partial atelectasis. Trace dependent low-density bilateral pleural effusions. Please note that all CT scans at this facility use dose modulation, iterative reconstruction, and/or weight-based dosing when appropriate to reduce radiation dose to as low as reasonably achievable. Dictated by Benito Jerry MD @ 05/13/2023 12:32:06 PM Signed by:?Benito Jerry MD @05/13/2023 12:32:06 PM (Electronic Signature)
--- NOTE | 2023-05-13 10:57 | PM.IMCN1 ---
Date of Consult Patient: [facility] Patient Consult date: 05/13/23 Requesting Physician: General Surgery Primary Care Provider: Not a Local Provider Consult Narrative Reason for consult: Tachycardia Narrative: Regina Saleem is a 52 year old female past medical history significant for tobacco dependence, obesity, not otherwise on any prescription medications is POD# 2 s/p laparoscopic converted to open right hemicolectomy for perforated appendicitis with Dr. Peña. We have been asked by General Surgery to evaluate patient in setting of acute, sustained mild tachycardia and hypoxia. Patient is seen at bedside this morning. Reports postoperative pain is slowly improving. Has had mild, intermittent headaches. No dizziness with ambulation today. Denies chest pain or tightness. Denies palpitations. No dyspnea. No tachypnea. Saturating 89-93% on 1.5 L per NC. Denies nausea. No return of bowel function yet. She remains NPO with NGT clamped currently. Prior to hospitalization, patient traveled 4 days in a car transporting her parents from [place]. Denies history of PE or DVTs. Enoxaparin started 3 postoperatively. Active smoker, reports < 1/2 pack per day. Denies history of asthma or emphysema. Is not oxygen dependent at home. CXR without evidence of pleural disease. She has remained afebrile. White count with left shift is trending down. CXR shows no evidence of acute infection. UC negative. Continues on IV ertapenem postoperatively. Today's hemoglobin is 11.6, previously 14.2-12.2. EKG shows NSR, ventricular rate 100. Troponin <0.01. Blood pressures adequate. Review of Systems Narrative: REVIEW OF SYSTEMS: Complete review of systems performed and negative unless otherwise stated in HPI or below. PFSH [facility] Medical History Recurrent low back pain ?M54.50 - Low back pain, unspecified (ICD-10) Acute back pain ?M54.9 - Dorsalgia, unspecified (ICD-10) Surgical History S/P tonsillectomy ?Z90.89 - Acquired absence of other organs (ICD-10) Social History Narrative: Admits to smoking and drinking alcohol at least twice a week. 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 Smoking Status: Current every day smoker How often do you have six or more drinks on one occasion: Never AUDIT-C Alcohol total score: 0 Non-prescribed substance use: denies use Meds Home Medications and Allergies Home Medications Medication Instructions Recorded Confirmed Type No Known Home Medications 05/11/23 05/11/23 History Allergies Allergy/AdvReac Type Severity Reaction Status Date / Time No Known Drug Allergies Allergy Verified 12/01/22 13:55 Exam Narrative: Exam Narrative: PHYSICAL EXAM General: Pleasant, NAD HEENT: Normocephalic, atraumatic, sclera white, EOMI Cardiovascular: Mildly tachycardic. Trace edema Pulmonary: CTA bilaterally without rhonchi, rales, expiratory wheezes. No dyspnea on nasal cannula Abdominal: Soft, obese, nondistended, mild postoperative tenderness. Incision appears to be healing appropriately. Neurological: Alert, answering questions appropriately, cranial nerves intact, no focal findings Extremities: No gross joint deformity or swelling. AROMI. Neurovascularly intact Skin: Warm, dry. Const: Vital Signs, click to edit/add: Vital Signs - 24 hr 05/12/23 11:34 05/12/23 15:00 05/12/23 15:00 Temperature 98.8 F 99.3 F Pulse Rate [Pulse Oximeter] 98 104 H 104 H Respiratory Rate 18 16 16 Blood Pressure [Ri ght Arm] 131/82 145/96 H Pulse Oximetry 90 93 Oxygen Delivery Me thod Nasal Cannula Room Air Oxygen Flow Rate 1 05/12/23 19:41 05/12/23 22:54 05/12/23 23:13 Temperature 98.8 F Pulse Rate [Pulse Oximeter] 108 H 107 H 107 H Respiratory Rate 18 18 18 Blood Pressure [Ri ght Arm] 111/68 123/79 Pulse Oximetry 91 90 Oxygen Delivery Me thod Nasal Cannula Nasal Cannula Oxygen Flow Rate 1 1.5 05/12/23 23:35 05/13/23 01:00 05/13/23 03:00 Temperature 98.4 F 98.1 F Pulse Rate [Pulse Oximeter] 111 H 108 H 101 H Respiratory Rate 18 18 Blood Pressure [Ri ght Arm] 117/71 Pulse Oximetry 91 90 89 Oxygen Delivery Me thod Nasal Cannula Oxygen Flow Rate 1.5 1.5 1.5 05/13/23 07:00 05/13/23 07:00 Temperature 99.3 F Pulse Rate [Pulse Oximeter] 110 H 110 H Respiratory Rate 20 20 Blood Pressure [Ri ght Arm] 121/73 Pulse Oximetry 90 Oxygen Delivery Me thod Nasal Cannula Oxygen Flow Rate 1.5 Labs Labs: Short CBC 05/12/23 05/13/23 Range/Units 23:48 09:34 WBC 15.29 H (4.50-11.00) K/uL Hgb 12.2 11.6 L (12.0-16.0) gm/dL Hct 36.5 (33.0-51.0) % Plt Count 319 (140-440) K/uL BMP 05/13/23 09:34 Sodium 135 Potassium 4.2 Chloride 103 Carbon Dioxide 31 BUN 9 Creatinine 0.6 Glucose 96 Calcium 8.8 Cardiac Enzymes 05/13/23 Range/Units 09:34 Troponin I < 0.01 L (0.01-0.04) ng/mL Assessment and Plan Assessment and plan (1) S/P right hemicolectomy: Problem comment: POD# 2. Perioperative management per General Surgery Status: Acute (2) Acute appendicitis: Problem comment: S/p laparoscopic converted to open right hemicolectomy for perforated appendicitis Continues on IV ertapenem Status: Acute (3) Tachycardia: Problem comment: Noted perioperatively. Asymptomatic Afebrile, hemodynamically stable, no radiographic evidence acute pneumonia, UC negative, leukocytosis downtrending, electrolytes WNL, ACS unlikely, postop anemia noted Would agree with General surgery, likely SIRS response, but will rule out PE given tachycardia, hypoxia, recent travel Status: Acute (4) Hypoxia: Problem comment: Currently requiring 1.5 L, saturating 89-93% Active smoker CTA PE ordered, BNP ordered Status: Acute Plan Hospital Medicine will continue to follow Total Time Spent Total Time Spent: Total time spent caring for the patient today was 45 minutes. This includes time spent for the visit reviewing the chart, time spent during the visit, time spent after the visit and documentation and planning in coordination of care.
[2023-05-13] MEDS: ONDANSETRON 2 MG/ML inj IVP ×2 (11:13→19:03)
[2023-05-13 11:58] LABS: NT Pro B Type NatriureticPept* 779 pg/mL
[2023-05-13] MEDS: ENOXAPARIN 40 MG/0.4 ML INJ SUBCUT (17:41)
--- NOTE | 2023-05-13 18:21 | PC.NURSE ---
End of Shift: Patient is calm, cooperative and pleasant. Patient vital signs stable, HR slightly tachycardic, BS WNL, lung sounds clear this afternoon. Patient NG tube clamped at 68, IV LR running at 150mL/hr. Patient on 1.5L O2 via NC, sating in the low 90s. Patient tolerated 1 apple juice well, although reported nausea a couple hours later. Wash cloth was applied to forehead, and aromatherapy provided for nausea. Patient reports pain 5/10, dull, achy around the abdomen. [place] 2 tabs and Zofran given x2. Nicotine patch on left shoulder. Abdominal lap sites x3, midline incision c/d/i, open to air. Patient urinating, and has walked the halls x3
[2023-05-13] MEDS: ERTAPENEM 1 GM in 0.9 % SODIUM CHLORIDE Mini-bag 100 ML IVPB (20:13)
[2023-05-13] MEDS: NICOTINE 21 MG PATCH 1 PATCH TRANSDERMA (21:57)
[2023-05-14] VITALS (7 sets, daily range): BP systolic 111–135; BP diastolic 69–85; PULSE 84–98; RESP 18–22; TEMP 36.8–37.2; O2SAT 87–98
[2023-05-14] MEDS: HYDROCODONE-ACETAMIN 5-325 MG 1 TAB PO ×4 (01:08→21:18)
[2023-05-14] MEDS: LACTATED RINGERS 1000 ML 1,000 ML 150 ML IV ×3 (04:57→18:48)
[2023-05-14 06:23] LABS: HCO3 VBG 32 mmol/L (21-28); PCO2 VBG 53 mmHG (40-50); PO2 VBG 50.5 mmHG (25-47)
--- NOTE | 2023-05-14 06:53 | PC.NURSE ---
Pt alert and oriented x3. Afebrile. Pt reports 6/10 pain in abdomen, pain managed with PRN medications. Pt's 3 lap sites and middle line incision is CDI. Pt is up SBA, walking in jenkins x2. Pt's NG is at 68 and clamped, pt tolerating clear liquids, had apple juice overnight. Pt slept intermittently throughout night.
--- NOTE | 2023-05-14 07:07 | PM.IMPN1 ---
Progress Note: A&P Assessment and plan (1) S/P right hemicolectomy: Problem details: POD# 3. Perioperative management per General Surgery Status: Acute (2) Acute appendicitis: Problem details: S/p laparoscopic converted to open right hemicolectomy for perforated appendicitis Continues on IV ertapenem Status: Acute (3) Tachycardia: Problem details: Noted perioperatively. Asymptomatic Afebrile, hemodynamically stable, no radiographic evidence acute pneumonia, UC negative, leukocytosis downtrending, electrolytes WNL, ACS unlikely, postop anemia noted Would agree with General surgery, likely SIRS response, but will rule out PE given tachycardia, hypoxia, recent travel 3/10: CTA negative for PE. Remainder of workup from yesterday unremarkable. No tachycardia overnight or this morning. Status: Acute (4) Hypoxia: Problem details: Currently requiring 1.5 L, saturating 89-93% Active smoker CTA PE shows no evidence of pulmonary embolism. Right upper lobe and bilateral lower lobe partial atelectasis. Trace dependent lung density bilateral pleural effusions. BNP 779. 3/10: Weaned to room air this morning. VBG pCO2 from this morning 53. Discussed and recommended with patient outpatient follow-up with PCP and consideration for sleep study. Status: Acute Plan Hospital medicine will follow peripherally as needed. Time Spent With Patient Total time spent: Total time spent caring for the patient today was 45 minutes. This includes time spent for the visit reviewing the chart, time spent during the visit, time spent after the visit and documentation and planning in coordination of care. Subjective Date Seen: 05/14/23 Interval history: Reports feeling pretty good this morning. Continues to slowly progress. Had some nausea overnight which is improved but continues to have mild intermittent nausea. No vomiting. No tachycardia overnight. Decreasing supplemental oxygen needs. Currently on room air. VBG this morning shows pCO2 53. No previous sleep studies performed. Exam Narrative: Exam Narrative: PHYSICAL EXAM General: Pleasant, NAD HEENT: Normocephalic, atraumatic, sclera white, EOMI Cardiovascular: Mildly tachycardic. Trace edema Pulmonary: CTA bilaterally without rhonchi, rales, expiratory wheezes. No dyspnea on nasal cannula Abdominal: Soft, obese, nondistended, mild postoperative tenderness. Incision appears to be healing appropriately. Neurological: Alert, answering questions appropriately, cranial nerves intact, no focal findings Extremities: No gross joint deformity or swelling. AROMI. Neurovascularly intact Skin: Warm, dry. Const: Vital Signs, click to edit/add: Vital Signs - 24 hr 05/13/23 07:00 05/13/23 07:00 05/13/23 11:05 Temperature 99.3 F 98.5 F Pulse Rate [Pulse Oximeter] 110 H 110 H 98 Respiratory Rate 20 20 22 Blood Pressure [Ri ght Arm] 121/73 114/74 Pulse Oximetry 90 92 Oxygen Delivery Me thod Nasal Cannula Nasal Cannula Oxygen Flow Rate 1.5 1.5 05/13/23 14:38 05/13/23 14:38 05/13/23 16:48 Temperature 98.2 F Pulse Rate [Pulse Oximeter] 102 H 102 H 95 Respiratory Rate 20 20 Blood Pressure [Ri ght Arm] 105/72 119/76 Pulse Oximetry 95 Oxygen Delivery Me thod Nasal Cannula Oxygen Flow Rate 1.5 05/13/23 20:00 05/13/23 22:15 05/13/23 22:15 Temperature 97.9 F 97.9 F Pulse Rate [Pulse Oximeter] 103 H 102 H 102 H Respiratory Rate 18 18 Blood Pressure [Ri ght Arm] 119/77 110/66 Pulse Oximetry 93 92 Oxygen Delivery Me thod Nasal Cannula Nasal Cannula Oxygen Flow Rate 1.5 1.5 05/14/23 01:19 Temperature 98.9 F Pulse Rate [Pulse Oximeter] 98 Respiratory Rate 18 Blood Pressure [Ri ght Arm] 121/82 Pulse Oximetry 94 Oxygen Delivery Me thod Nasal Cannula Oxygen Flow Rate 1.5 Labs Labs: Laboratory Results - last 24 hr 05/13/23 05/13/23 05/14/23 09:34 11:29 06:16 WBC 15.29 H RBC 3.86 L Hgb 11.6 L Hct 36.5 MCV 95 MCH 30 MCHC 32 RDW Coeff of Jenifer 12.2 Plt Count 319 Neut % (Auto) 78.6 H Lymph % (Auto) 12.4 L [place] % (Auto) 8.3 Eos % (Auto) 0.1 Baso % (Auto) 0.3 Neut # (Auto) 12.00 H Lymph # (Auto) 1.90 [place] # (Auto) 1.30 H Eos # (Auto) 0.00 Baso # (Auto) 0.00 Abs Immat Gran (auto) 0.00 Imm/Tot Granulo (auto) 0.3 VBG pH 7.390 VBG pCO2 53 H VBG pO2 50.5 H VBG HCO3 32 H Sodium 135 Potassium 4.2 Chloride 103 Carbon Dioxide 31 Anion Gap 1 L BUN 9 Creatinine 0.6 Estimated Creat Clear 87.73 Estimated GFR 109 Glucose 96 Calcium 8.8 Phosphorus 2.7 Magnesium 2.1 Troponin I < 0.01 L NT-Pro-B Natriuret Pep 779 Lab Acknowledgement Test Added
--- NOTE | 2023-05-14 09:46 | PM.GSPN ---
Subjective Subjective Date Seen: 05/14/23 Interval history: Patient is doing better today. Her abdominal pain is improving. It is better controlled with pain medications. She ambulated 5 times yesterday. She is not passing gas. Her heart rate has come down somewhat to low 100s and sometimes below 100. Her chest x-ray was clear yesterday. Her EKG was normal. Her troponin was not concerning for cardiac ischemia. NG remained clamped yesterday but last night it was unclamped once because patient had nausea. She only had small amount of clears. Exam Narrative: Exam Narrative: Abdomen is soft, not distended, tender to palpation mostly on the right side but the tenderness is again improved. The midline laparotomy incision is with intact maryam and no surrounding erythema. Laparoscopic incisions with no surrounding erythema. Const: Vital Signs, click to edit/add: Vital Signs - 24 hr 05/13/23 11:05 05/13/23 14:38 05/13/23 14:38 Temperature 98.5 F 98.2 F Pulse Rate [Pulse Oximeter] 98 102 H 102 H Respiratory Rate 22 20 20 Blood Pressure [Ri ght Arm] 114/74 105/72 Pulse Oximetry 92 95 Oxygen Delivery Me thod Nasal Cannula Nasal Cannula Oxygen Flow Rate 1.5 1.5 05/13/23 16:48 05/13/23 20:00 05/13/23 22:15 Temperature 97.9 F Pulse Rate [Pulse Oximeter] 95 103 H 102 H Respiratory Rate 18 Blood Pressure [Ri ght Arm] 119/76 119/77 Pulse Oximetry 93 Oxygen Delivery Me thod Nasal Cannula Oxygen Flow Rate 1.5 05/13/23 22:15 05/14/23 01:19 05/14/23 08:05 Temperature 97.9 F 98.9 F 98.3 F Pulse Rate [Pulse Oximeter] 102 H 98 90 Respiratory Rate 18 18 22 Blood Pressure [Ri ght Arm] 110/66 121/82 119/77 Pulse Oximetry 92 94 90 Oxygen Delivery Me thod Nasal Cannula Nasal Cannula Room Air Oxygen Flow Rate 1.5 1.5 05/14/23 08:05 Temperature Pulse Rate [Pulse Oximeter] 90 Respiratory Rate 22 Blood Pressure [Ri ght Arm] Pulse Oximetry Oxygen Delivery Me thod Oxygen Flow Rate Progress Note:A&P Assessment and plan (1) S/P right hemicolectomy: Status: Acute Plan 52-year-old female s/p laparoscopic converted to open right hemicolectomy for perforated appendicitis POD 3. Patient is improving but does not have return of bowel function yet. We will continue with IV antibiotics. Continue with IV fluids at 150 an hour for now. The NG tube will remain clamped. Will start patient on PPI. Patient will continue ambulating and doing incentive spirometry to improve her oxygenation. She remains on 1 L of oxygen at rest.
[2023-05-14] MEDS: PANTOPRAZOLE SODIUM 40 MG INJ IVP (11:32)
--- NOTE | 2023-05-14 18:24 | PC.NURSE ---
Addendum entered by Kierra Marcum RN 05/14/23 18:47: Patient 1 SBA while walking the halls. Patient currently on RA while sitting in recliner sating in low 90s. Original Note: End of Shift: Patient pleasant and cooperative. Patient vitally stable, lungs clear, BS active, IV running LR at 150. Patient rates pain at most 6/10 and lowest 4/10, two tabs of norco given x2. Patient has sat up in recliner x2 and has walked the halls x4. Patient tolerating apple juice and urinating. No nausea reported, zophran given. Abdominal lap sites x3 and midline incision C/D/I. NG clamped. Nicotine patch on right shoulder.
[2023-05-14] MEDS: ENOXAPARIN 40 MG/0.4 ML INJ SUBCUT (18:49)
[2023-05-14] MEDS: ERTAPENEM 1 GM in 0.9 % SODIUM CHLORIDE Mini-bag 100 ML IVPB (20:04)
[2023-05-14] MEDS: NICOTINE 21 MG PATCH 1 PATCH TRANSDERMA (21:19)
[2023-05-14] MEDS: phenoL 1.4 % THROAT SPRAY 1 SPRAY MUCOUS MEM (21:50)
[2023-05-15] VITALS (7 sets, daily range): BP systolic 119–146; BP diastolic 75–98; PULSE 87–94; RESP 16–20; TEMP 36.8–37.3; O2SAT 90–95
[2023-05-15] MEDS: LACTATED RINGERS 1000 ML 1,000 ML 150 ML IV (02:05)
[2023-05-15] MEDS: phenoL 1.4 % THROAT SPRAY 1 SPRAY MUCOUS MEM (02:18)
[2023-05-15] MEDS: HYDROCODONE-ACETAMIN 5-325 MG 1 TAB PO ×4 (02:19→23:21)
--- NOTE | 2023-05-15 05:05 | PC.NURSE ---
Addendum entered by Palmira Thayer RN 05/15/23 06:03: Pt just went to [place], reported passing gas Original Note: [id number] Pt walked halls x1 this shift, she stated that this has become more difficult/exhausting as day progressed and she has completed more walks, 1 LPM NC on with activity. Pt desats to mid 80's on RA while asleep so placed pt on 0.5 LPM NC and pt maintains sats >90%. ambulates with SBA, tolerates activity fair, increased abd pain with activity. denies passing gas, bowel sounds active. surgical sites intact, no drainage/redness noted. ice applied to abdomen during shift. pain controlled with PO pain medication. NG tube remained clamped entire shift, no N/V, tolerating small sips/chips.
[2023-05-15] MEDS: HYDROmorphone 0.5 mg/0.5 ml inj IVP ×2 (06:12→15:57)
[2023-05-15 06:21] LABS: Basophils Absolute Auto 0.04 K/uL (0.00-0.30); Basophils Percent Auto 0.4 % (0.0-3.0); Eosinophils Absolute Auto 0.29 K/uL (0.00-0.50); Eosinophils Percent Auto 2.7 % (0.0-7.0); Hematocrit 32.9 % (33.0-51.0); Hemoglobin* 10.5 gm/dL (12.0-16.0); Immature Granulocytes Abs Auto 0.03 K/uL (0.00-0.30); Immature Granulocytes Pct Auto 0.3 %; Lymphocytes Absolute Auto 2.66 K/uL (0.90-2.90); Lymphocytes Percent Auto 25.2 % (20-44); Mean Corpuscular HGB Conc 32 gm/dL (32-36); Mean Corpuscular Hemoglobin 30 pg (26-34); Mean Corpuscular Volume 95 fL (80-100); Monocytes Percent Auto 8.7 % (0.0-11.0); Neutrophils Absolute Auto 6.62 K/uL (1.7-7.0); Neutrophils Percent Auto 62.7 % (42.0-72.0); Platelet Count* 361 K/uL (140-440); RDW Coefficient of Variation % 12.1 % (11.5-15.5); Red Blood Count 3.48 m/uL (4.00-5.20); White Blood Count* 10.56 K/uL (4.50-11.00)
[2023-05-15 06:23] LABS: Slide Review Reflex No
[2023-05-15 06:29] LABS: Chloride* 101 mmol/L (96-114); Potassium* 3.7 mmol/L (3.6-5.1); Sodium* 135 mmol/L (135-149)
[2023-05-15 06:32] LABS: Anion Gap 3 mEq/L (7-15); Blood Urea Nitrogen* 6 mg/dL (7-30); Carbon Dioxide* 31 mmol/L (20-32); Creatinine* 0.5 mg/dL (0.5-1.5); Est. Creatinine Clearance* 105.28; Estimated Glomerular Filt Rate 113 ml/min; Glucose* 87 mg/dL (60-115)
[2023-05-15 06:33] LABS: Calcium* 8.4 mg/dL (8.4-10.6)
[2023-05-15] MEDS: LACTATED RINGERS 1000 ML 1,000 ML 100 ML IV ×2 (10:29→19:46)
--- NOTE | 2023-05-15 11:05 | P.GSPN_ITS ---
Subjective Subjective Date Seen: 05/15/23 Interval history: Patient is doing better today. She started to pass gas. She still complains of abdominal pain that is described as crampy. But the pain is slowly improving. She continues to be on oxygen by nasal cannula. She ambulated 5 times yesterday. Exam Narrative: Exam Narrative: Abdomen is soft, not distended, tender to palpation mostly on the right side of the abdomen and minimally tender superior to her laparotomy incision. Surgical incision is with intact maryam with no surrounding erythema. Const: Vital Signs, click to edit/add: Vital Signs - 24 hr 05/14/23 15:16 05/14/23 15:16 05/14/23 19:00 Temperature 98.5 F 98.3 F Pulse Rate [Pulse Oximeter] 98 98 97 Respiratory Rate 20 20 20 Blood Pressure [Ri ght Arm] 135/85 111/69 Pulse Oximetry 98 91 Oxygen Delivery Me thod Room Air Room Air Oxygen Flow Rate 05/14/23 22:05 05/14/23 22:22 05/15/23 02:20 Temperature 98.8 F 98.8 F Pulse Rate [Pulse Oximeter] 92 88 Respiratory Rate 20 20 Blood Pressure [Ri ght Arm] 124/81 119/75 Pulse Oximetry 92 87 L 94 Oxygen Delivery Me thod Room Air Room Air Nasal Can nula Oxygen Flow Rate 0.5 05/15/23 08:31 Temperature 98.7 F Pulse Rate [Pulse Oximeter] 87 Respiratory Rate 18 Blood Pressure [Ri ght Arm] 136/79 Pulse Oximetry 94 Oxygen Delivery Me thod Room Air Oxygen Flow Rate Progress Note:A&P Assessment and plan (1) S/P right hemicolectomy: Status: Acute Assessment and Plan: 52-year-old female s/p laparoscopic converted to open right hemicolectomy for perforated appendicitis POD 4. Patient is improving. She has return of bowel function. Her tachycardia has improved. Her WBC was normal. Will continue antibiotics for total of 7 days due to perforated appendicitis. Patient can take a shower if she wishes. NG tube was removed today. Will advance her diet to sips of clears. I will also add Toradol p.r.n. for pain control. Patient is interested in discussing smoking cessation group home. I will have the hospitalist team stop by to discuss this further.
[2023-05-15] MEDS: KETOROLAC 30 MG/ML inj IVP ×2 (12:06→19:46)
[2023-05-15] MEDS: ONDANSETRON 2 MG/ML inj IVP (15:57)
[2023-05-15] MEDS: ENOXAPARIN 40 MG/0.4 ML INJ SUBCUT (17:57)
[2023-05-15] MEDS: ERTAPENEM 1 GM in 0.9 % SODIUM CHLORIDE Mini-bag 100 ML IVPB (19:47)
[2023-05-15] MEDS: NICOTINE 21 MG PATCH 1 PATCH TRANSDERMA (21:19)
[2023-05-16 04:03] VITALS: BP 129/68; PULSE 88; RESP 18; TEMP 36.9; O2SAT 92
[2023-05-16] MEDS: KETOROLAC 30 MG/ML inj IVP ×3 (04:05→19:52)
[2023-05-16] MEDS: phenoL 1.4 % THROAT SPRAY 1 SPRAY MUCOUS MEM (04:14)
--- NOTE | 2023-05-16 05:33 | PC.NURSE ---
[id number]: Patient cooperative with cares. BS active. Patient reports passing gas and frequent belching. Walk in jenkins x2. Afebrile. 4-6/10 pain managed with PRN Toradol x2, [place] x1, and active ice. Midline incision and 3 laps sites KANDICE and C/D/I. Tolerating clears. Denies N/V. O2 sats variable overnight. Trialed O2 off for a period of time but dipped into the 60's so applied 1 Lt NC for remainder of noc.
[2023-05-16] MEDS: LACTATED RINGERS 1000 ML 1,000 ML 100 ML IV (06:11)
[2023-05-16 08:30] VITALS: BP 134/68; PULSE 72; RESP 16; TEMP 36.8; O2SAT 94
[2023-05-16 11:00] VITALS: BP 147/79; PULSE 84; RESP 18; TEMP 37.3; O2SAT 92
--- NOTE | 2023-05-16 13:44 | PM.GSPN ---
Subjective Subjective Date Seen: 05/16/23 Interval history: Patient is doing well. Her abdominal pain is minimal. She is belching and passing gas. She tolerated clears yesterday. She ambulated 5 times. She continued to require oxygen at night but doing better during the day. Exam Narrative: Exam Narrative: Abdomen is soft, not distended, stretching machine tender frame to palpation superior to the incision and on the right of the abdomen, midline surgical incision is with no surrounding erythema and with intact maryam. Const: Vital Signs, click to edit/add: Vital Signs - 24 hr 05/15/23 15:00 05/15/23 15:50 05/15/23 19:57 Temperature 99.1 F 98.8 F Pulse Rate [Pulse Oximeter] 94 87 Respiratory Rate 16 20 20 Blood Pressure [Ri ght Arm] 138/98 H 136/85 Pulse Oximetry 93 94 Oxygen Delivery Me thod Room Air Room Air 05/15/23 23:20 05/16/23 04:03 05/16/23 08:30 Temperature 98.3 F 98.4 F 98.2 F Pulse Rate [Pulse Oximeter] 89 88 72 Respiratory Rate 16 18 16 Blood Pressure [Ri ght Arm] 122/79 129/68 134/68 Pulse Oximetry 95 92 94 Oxygen Delivery Me thod Room Air Room Air Room Air 05/16/23 11:00 Temperature 99.1 F Pulse Rate [Pulse Oximeter] 84 Respiratory Rate 18 Blood Pressure [Ri ght Arm] 147/79 H Pulse Oximetry 92 Oxygen Delivery Me thod Room Air Progress Note:A&P Assessment and plan (1) S/P right hemicolectomy: Status: Acute Plan 52-year-old female s/p lap converted to open right hemicolectomy for perforated appendicitis POD 5. Patient is recovering well. We will advance her diet to full liquids today and tomorrow to regular diet. Hospitalist recommends outpatient sleep study to assess for obstructive sleep apnea. If patient is tolerating regular diet tomorrow, most likely discharge home.
--- NOTE | 2023-05-16 14:36 | PC.NURSE ---
shift note: pt up in jenkins ambulating x5. pt passing flatus. Pt had 2 small BM's. pt denies nausea. pt medicated for abd pain with relief. IV intact. abd incision open to air. lap sites x3 intact & open to air.
[2023-05-16 15:00] VITALS: BP 119/81; PULSE 86; RESP 16; TEMP 37.3; O2SAT 94
[2023-05-16] MEDS: HYDROCODONE-ACETAMIN 5-325 MG 1 TAB PO (15:45)
[2023-05-16] MEDS: ENOXAPARIN 40 MG/0.4 ML INJ SUBCUT (17:45)
[2023-05-16 19:00] VITALS: BP 137/84; PULSE 90; RESP 18; TEMP 37.6; O2SAT 93
--- NOTE | 2023-05-16 19:42 | PC.NURSE ---
End of Shift ([id number]): Patient pleasant and cooperative. Temp max 99.2. Rating pain in abdomen 6/10 and PRN [place] given x1. Midline abdominal incision and lap sites C/D/I and open to air. Up to bathroom and walking in hallway with SBA and walker. Tolerating full liquid diet with no nausea. Bowel sounds active and passing flatus.
[2023-05-16] MEDS: ERTAPENEM 1 GM in 0.9 % SODIUM CHLORIDE Mini-bag 100 ML IVPB (19:52)
[2023-05-16] MEDS: NICOTINE 21 MG PATCH 1 PATCH TRANSDERMA (20:53)
[2023-05-16] MEDS: SIMETHICONE 80 MG TAB.CHEW 160 MG PO (20:53)
[2023-05-16 23:00] VITALS: BP 134/82; PULSE 90; PULSE 91; RESP 18; TEMP 37.3; O2SAT 92; O2SAT 93
[2023-05-17] MEDS: ONDANSETRON 2 MG/ML inj IVP (00:15)
[2023-05-17] MEDS: HYDROCODONE-ACETAMIN 5-325 MG 1 TAB PO ×2 (00:15→08:37)
[2023-05-17] MEDS: SIMETHICONE 80 MG TAB.CHEW 160 MG PO (01:14)
[2023-05-17 03:00] VITALS: BP 115/68; PULSE 73; RESP 16; TEMP 36.7; O2SAT 95
[2023-05-17] MEDS: KETOROLAC 30 MG/ML inj IVP ×2 (04:10→11:45)
--- NOTE | 2023-05-17 06:24 | PC.NURSE ---
End of shift report [id number]: Pleasant and cooperative with cares. Alert, oriented x4. Pain managed well with current regimen. Midline abdominal incision open to air, incision is well approximated and secured with maryam, incision is free of any signs or symptoms of infection. Laparoscopic sites C/D/I, bruising noted to all sites. Bowel sounds active to RUG, LUQ, RLQ and sounds hyperactive in LLQ. Patient burping and passing flatus, small formed BM this shift. Reports feelingfull with gas, new order for simethicone, patient reports moderate relief of pressure from gas with medication. Ambulates independently with 4WW. O2 on at HS for HEIDE risk, patient required oxygen at 1L per NC to maintain sat's greater >87%.
[2023-05-17 06:31] LABS: Basophils Absolute Auto 0.03 K/uL (0.00-0.30); Basophils Percent Auto 0.3 % (0.0-3.0); Eosinophils Absolute Auto 0.33 K/uL (0.00-0.50); Eosinophils Percent Auto 3.4 % (0.0-7.0); Hematocrit 30.7 % (33.0-51.0); Hemoglobin* 9.9 gm/dL (12.0-16.0); Immature Granulocytes Abs Auto 0.07 K/uL (0.00-0.30); Immature Granulocytes Pct Auto 0.7 %; Lymphocytes Percent Auto 29.7 % (20-44); Mean Corpuscular HGB Conc 32 gm/dL (32-36); Mean Corpuscular Hemoglobin 30 pg (26-34); Mean Corpuscular Volume 94 fL (80-100); Monocytes Percent Auto 11.4 % (0.0-11.0); Neutrophils Absolute Auto 5.32 K/uL (1.7-7.0); Neutrophils Percent Auto 54.5 % (42.0-72.0); Platelet Count* 397 K/uL (140-440); RDW Coefficient of Variation % 12.3 % (11.5-15.5); Red Blood Count 3.27 m/uL (4.00-5.20); White Blood Count* 9.76 K/uL (4.50-11.00)
[2023-05-17 06:32] LABS: Slide Review Reflex No
[2023-05-17 06:38] LABS: Chloride* 103 mmol/L (96-114); Sodium* 138 mmol/L (135-149)
[2023-05-17 06:39] LABS: Potassium* 3.6 mmol/L (3.6-5.1)
[2023-05-17 06:41] LABS: Creatinine* 0.5 mg/dL (0.5-1.5); Est. Creatinine Clearance* 105.28; Estimated Glomerular Filt Rate 113 ml/min
[2023-05-17 06:42] LABS: Anion Gap 3 mEq/L (7-15); Blood Urea Nitrogen* 7 mg/dL (7-30); Calcium* 8.5 mg/dL (8.4-10.6); Carbon Dioxide* 32 mmol/L (20-32); Glucose* 95 mg/dL (60-115)
[2023-05-17 07:00] VITALS: BP 120/80; PULSE 86; RESP 18; TEMP 36.8; O2SAT 89; O2SAT 95; O2SAT 96
--- NOTE | 2023-05-17 08:57 | PM.DS1 ---
DS: Providers Provider Date Seen: 05/17/23 Date of admission: 05/11/23 21:19 Primary care physician: Not a Local Provider Admitting Clinician: Ondina Peña MD Attending Physician on discharge: Ondina Peña MD DS: Diagnosis Discharge Diagnosis (1) S/P right hemicolectomy: Status: Acute Problem details: POD# 3. Perioperative management per General Surgery DS: Summary Hospital Course Hospital Course: 52-year-old female was admitted to the hospital after she underwent laparoscopic converted to laparoscopic assisted open right hemicolectomy for perforated appendicitis with an abscess. During her hospital stay patient had tachycardia that was due to systemic inflammatory response syndrome. This resolved with IV antibiotics and fluid resuscitation. Patient also had hypoxia that was thought to be due to hypoventilation. She required oxygen at night. Hospitalist team was consulted and recommended outpatient follow-up with sleep study. During her hospital stay she continued to be on IV antibiotics. She had return of bowel function with bowel movements and her diet was advanced. Time Spent with Patient Time attestation: Total time spent providing and/or coordinating discharge services: Exam Narrative: Exam Narrative: Abdomen is soft, not distended, minimally tender to palpation superior to the incision and to the right of midline laparotomy incision. The midline laparotomy incision with intact maryam with no surrounding erythema. Laparoscopic incisions are covered with Steri is with no surrounding erythema. Const: Vital Signs, click to edit/add: Vital Signs - 24 hr 05/16/23 11:00 05/16/23 15:00 05/16/23 15:00 Temperature 99.1 F 99.2 F Pulse Rate [Pulse Oximeter] 84 86 86 Respiratory Rate 18 16 16 Blood Pressure [Ri t Arm] 147/79 H 119/81 Pulse Oximetry 92 94 Oxygen Delivery Me thod Room Air Room Air Oxygen Flow Rate 05/16/23 19:00 05/16/23 23:00 05/16/23 23:00 Temperature 99.7 F H Pulse Rate [Pulse Oximeter] 90 Respiratory Rate 18 18 Blood Pressure [Ri ght Arm] 137/84 Pulse Oximetry 93 93 93 Oxygen Delivery Me thod Room Air Room Air Oxygen Flow Rate 1 05/16/23 23:00 05/16/23 23:00 05/17/23 03:00 Temperature 99.2 F 98.0 F Pulse Rate [Pulse Oximeter] 90 91 73 Respiratory Rate 18 18 16 Blood Pressure [Ri ght Arm] 134/82 115/68 Pulse Oximetry 92 95 Oxygen Delivery Me thod Nasal Cannula Room Air Oxygen Flow Rate 1 1 05/17/23 07:00 05/17/23 07:00 05/17/23 07:00 Temperature 98.2 F Pulse Rate [Pulse Oximeter] 86 Respiratory Rate 18 18 Blood Pressure [Ri ght Arm] 120/80 Pulse Oximetry 96 95 89 Oxygen Delivery Me thod Nasal Cannula Room Air Oxygen Flow Rate 1 DS: Data Data Completed and Pending Labs on day of discharge: Labs from last 24 hours 05/17/23 06:02 WBC 9.76 RBC 3.27 L Hgb 9.9 L Hct 30.7 L MCV 94 MCH 30 MCHC 32 RDW Coeff of Jenifer 12.3 Plt Count 397 Neut % (Auto) 54.5 Lymph % (Auto) 29.7 [place] % (Auto) 11.4 H Eos % (Auto) 3.4 Baso % (Auto) 0.3 Neut # (Auto) 5.32 Lymph # (Auto) 2.90 [place] # (Auto) 1.10 H Eos # (Auto) 0.33 Baso # (Auto) 0.03 Abs Immat Gran (auto) 0.07 Imm/Tot Granulo (auto) 0.7 Sodium 138 Potassium 3.6 Chloride 103 Carbon Dioxide 32 Anion Gap 3 L BUN 7 Creatinine 0.5 Estimated Creat Clear 105.28 Estimated GFR 113 Glucose 95 Calcium 8.5 Discharge Plan Discharge Disposition: Home, Self-Care Date of Admission: 05/11/23 21:19 Attending Provider on Discharge: Ondina Peña Primary Care Provider: Provider,Not a Local Condition: Improved Anticipated Discharge Date/Time: 05/17/23 12:00 Discharge Medications: New hydrocodone-acetaminophen 5-325 mg tablet 1 tab PO Q6H PRN (Reason: pain) Qty: 25 0RF Discharge Orders: Discharge Order (Routine); Ordered 05/17/23 Ordered By: Ondina Peña Patient Education: General Anesthesia (DC), Post-Operative Instructions: Appendectomy Additional Instructions: No strenuous activity or lifting more than 15-20 lbs for 4-6 weeks. Take laxative such as MiraLax or senna daily for the first 7-10 days after surgery to prevent constipation. Patient needs nurse only appointment next Monday for staple removal. Activity Level: No strenuous activity Activity Detail: No strenuous activity or lifting more than 15-20 lbs for 4-6 weeks. Take laxative such as MiraLax or senna daily for the first 7-10 days after surgery to prevent constipation. Discharge Diet: Regular Follow Up Appointments: Ondina Peña MD [Staff Physician] - ([facility] follow up) Forms: [employer] Info Instructions
[2023-05-17] MEDS: polyethylene glycoL 3350 17 GM PACK PO (09:10)
[2023-05-17 11:00] VITALS: BP 111/63; PULSE 79; RESP 18; TEMP 36.9; O2SAT 92
--- NOTE | 2023-05-17 13:42 | PC.NURSE ---
Nursing discharge note: Pt A&O, afebrile and VSS throughout this shift. Pt is independent in her room with 4ww with a steady gait. She?s had x2 small soft BM?s this morning. Bowel sounds are hyperactive in all 4 quads. Pt reports tenderness & soreness more so in the RLQ than the LLQ; relieved by PRN Flora & Toradol. Flora last given @ 0835 and IV Toradol last given @ 1145. Midline incision clean, dry and maryam intact. Lap sites x3 clean, dry and steri-strips intact. PIV in left hand SL and discontinued, catheter intact. Diet advanced and pt tolerated regular diet with no N/V. Nicotine patch removed from right shoulder and discarded prior to discharge. Discharge instructions reviewed with patient and her questions were answered appropriately. Pt discharged via w/C accompanied by STUART?s and parents at 1330. ?
--- NOTE | 2023-05-20 13:57 | PC.NURSE ---
PATIENT CALLED REGARDING CONCERNS REGARDING NEW ABDOMINAL PAIN. CALLED DR. LOPEZ WHO CONTACTED PATIENT.
== END 2023-05-17 13:30 | disposition home or self-care (01) | DRG 330 ==
LOC: ED 14:14 → OR 15:12 → MEDSURG 20:51 → OR 22:47 → MEDSURG 22:47
PROVIDERS: Family Medicine; Physician Assistant; Admitting Provider Surgery; Emergency Provider Emergency Medicine; Visit Provider Surgery
PROC: 0DTJ4ZZ Resection of Appendix, Percutaneous Endoscopic Approach (ICD-10-PCS; CPT 44970; principal; 2023-05-11 14:30)
DX: K35.33 Acute appendicitis with perforation, localized peritonitis, and gangrene, with abscess (principal); J90 Pleural effusion, not elsewhere classified; J95.89 Other postprocedural complications and disorders of respiratory system, not elsewhere classified; J98.11 Atelectasis; R09.02 Hypoxemia; R20.0 Anesthesia of skin; G89.18 Other acute postprocedural pain; R10.31 Right lower quadrant pain; Z53.31 Laparoscopic surgical procedure converted to open procedure; R00.0 Tachycardia, unspecified; F17.210 Nicotine dependence, cigarettes, uncomplicated; E66.9 Obesity, unspecified; Z68.39 Body mass index [BMI] 39.0-39.9, adult
CPT/HCPCS: 00840; 36415; 64488; 71045; 71275; 74177; 76942; 80048; 80076; 81001; 81025; 82803; 83605; 83690; 83735; 83880; 84100; 84484; 85018; 85025; 86140; 87086; 88307; 93005; 94761; 99284; 99285; A9270; C9113; J0330; J0665; J0690; J1100; J1170; J1335; J1650; J1885; J2250; J2405; J2704; J3010; J3490; J7030; J7120; Q9967; S4990

== ENCOUNTER 2023-05-20 17:39 | Inpatient (IN) | payer OTHER, SELFPAY ==
[2023-05-20] VITALS (8 sets, daily range): BP systolic 134–144; BP diastolic 71–92; PULSE 85–96; RESP 18–22; TEMP 37.2–37.4; O2SAT 92–94; BMI 39.3; BMI 41.5
--- NOTE | 2023-05-20 18:11 | CT_ITS ---
Patient: HOLLY JOHNSON Facility:?[facility] Patient ID:?[id number] Site Patient ID:?[id number]. Site :?[id number] Study:?CT-Abdomen/Pelvis W/IV-05/20/2023 7:01:00 PM Ordering Physician:VICTORINO Final Report: INDICATION: Postoperative pain following appendectomy, fever. TECHNIQUE: CT abdomen and pelvis acquired with 99 mL Isovue 370 contrast. COMPARISON: CT abdomen/pelvis dated 05/11/2023. CT chest dated 05/13/2023. FINDINGS: Lower chest: Small bilateral pleural effusions, right greater than left. Patchy bibasilar airspace opacities, greater than would be expected for compressive atelectasis, worrisome for multifocal pneumonia. Liver: No suspicious focal hepatic lesion. Gallbladder and bile ducts: Unremarkable. Pancreas: Unremarkable. Spleen: Unremarkable. Adrenal glands: Indeterminate 0.9 cm left adrenal nodule. Kidneys: Kidneys enhance symmetrically, without hydronephrosis. Too small to characterize hypodense left renal lesions. Retroperitoneum: No lymphadenopathy. Bowel and mesentery: Extensive postsurgical changes at the cecum, compatible with appendectomy. In addition to mild residual inflammatory change, there is a small collection along the right pericolic gutter with small foci of air measuring approximately 1.9 x 1.9 x 2.1 cm. Trace amount of free fluid is noted within the right hemipelvis. Bladder: Unremarkable for degree of distention. Reproductive organs: Leiomyomatous uterus. Pelvic lymph nodes: No lymphadenopathy. Vessels: Filling defect is seen within the right internal iliac artery, concerning for thromboembolism. Abdominal wall: Postsurgical changes in the ventral abdominal wall. Residual fluid/postsurgical seroma at the umbilicus. Mild subcutaneous edema noted. Bones: Multilevel degenerative changes of the spine. No suspicious/aggressive focal osseous lesion. IMPRESSION: 1. Postsurgical changes of appendectomy. Small collection along the right pericolic gutter abutting the cecum measuring approximately 1.9 x 1.9 x 2.1 cm, may reflect a small abscess. 2. Patchy bibasilar airspace opacities, greater than would be expected for atelectasis, worrisome for multifocal pneumonia. 3. Filling defect within the right internal iliac artery, concerning for thromboembolism. 4. Indeterminate 0.9 cm left adrenal nodule. Please note that all CT scans at this facility use dose modulation, iterative reconstruction, and/or weight-based dosing when appropriate to reduce radiation dose to as low as reasonably achievable. Dictated by Shiraz Hair MD @ 05/20/2023 8:02:42 PM ----- ADDENDUM ----- Case discussed with Dr. Singletary at 20:09 on 05/20/2023. Dictated by Shiraz Hair MD @ May 20 2023 10:07PM Signed by:?Shiraz Hair MD @05/20/2023 8:02:42 PM (Electronic Signature)
--- NOTE | 2023-05-20 18:41 | ED.GENADULT ---
HPI - General Adult General Chief complaint: Abdominal Pain Stated complaint: Had Appy surg this week-more pain and temp Time Seen by Provider: 05/20/23 17:42 Source: patient Mode of arrival: ambulatory Limitations: no limitations History of Present Illness HPI narrative: 52-year-old female postop day 9 status post appendectomy and hemicolectomy secondary to ruptured appendix presenting today with increasing abdominal pain and chills. Patient states that this pain she is having in the center of the abdomen continues unchanged however she is having more right-sided mid abdominal pain. She then developed some chills earlier today. She denies increase in nausea. No vomiting. She has not taken her temperature. She has been having loose stools and passing gas, she denies any increased urinary frequency, dysuria or urgency. She denies any blood in her urine. She denies any flank pain. She has a hard time seeing on her abdominal incision but last time she looked at yesterday she felt it looked okay. Related Data Home Medications Medication Instructions Recorded Confirmed amoxicillin 875 mg-potassium 1 tab PO BID 05/20/23 05/20/23 clavulanate 125 mg tablet Allergies Allergy/AdvReac Type Severity Reaction Status Date / Time No Known Drug Allergies Allergy Verified 05/13/23 12:58 Review of Systems Status of ROS: Reports: 10 or more systems reviewed and unremarkable except as noted in History and below [facility] Medical History Recurrent low back pain ?M54.50 - Low back pain, unspecified (ICD-10) Acute back pain ?M54.9 - Dorsalgia, unspecified (ICD-10) Surgical History S/P tonsillectomy ?Z90.89 - Acquired absence of other organs (ICD-10) Social History Narrative: Admits to smoking and drinking alcohol at least twice a week. 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 What is your current living situation?: I presently have a place to live Problems where you live: no known problems Problems where you live details: N/A In the past 12 months, utilities in danger of being shut off: no In past 12 months, lack of transportation kept you from medical appts, meetings, work, or getting things needed for daily living: no In the past 12 mos, have been you worried that your food would run out before you had money to buy more?: never true In the past 12 mos, the food you bought just didn't last and you didn't have money to buy more?: never true Highest level of school completed/degree received: Bachelor's degree Smoking Status: Current every day smoker What tobacco products do you use: cigarettes Years smoked: 30 Smoking quit date/years: >15 years ago Second hand tobacco smoke exposure: No How often do you have a drink containing alcohol: never How often do you have six or more drinks on one occasion: Never AUDIT-C Alcohol total score: 0 Non-prescribed substance use: denies use Caffeine: Yes (2-3 coffees daily) How often does anyone, including family, friends and others, physically hurt you: never How often does anyone, including family, friends and others, insult or talk down to you: never How often does anyone, including family, friends and others, threaten you with harm: never How often does anyone, including family, friends and others, scream or curse at you: never service: No Exam Narrative: Exam Narrative: Overweight, well-developed patient in no acute distress. Alert and oriented. Answers questions appropriately. Mood and affect are appropriate. Thoughts are goal oriented and rational. No tangential or magical thinking noted. Patient speaks in full sentences without needing to catch her breath. Patient does not appear ill or toxic. HEENT: Normocephalic atraumatic. Pupils are equally round reactive to light. Extraocular muscles are intact. Conjunctivae are moist without any icterus noted. Moist mucous membranes. Cardiovascular: Heart is regular rate and rhythm. Lungs: Clear to auscultation bilaterally no wheezes rhonchi or rales are appreciated. Abdomen: Soft, normal bowel sounds. She has diffuse tenderness around the incision. She has right sided periumbilical pain which she describes as new. Her incision is erythematous, hot to touch. Skin: Well perfused without any obvious rashes aside from what is described above. Const: Vital Signs, click to edit/add: Vital Signs - 24 hr 05/20/23 18:00 05/20/23 19:20 05/20/23 20:06 Temperature 98.9 F 98.9 F Pulse Rate [Right Pulse Oximeter] 85 87 Respiratory Rate 18 18 Blood Pressure [Ri ght Upper Arm] 141/84 H 144/71 H Pulse Oximetry 94 92 Oxygen Delivery Me thod Room Air Room Air 05/20/23 20:07 Temperature Pulse Rate [Right Pulse Oximeter] Respiratory Rate Blood Pressure [Ri ght Upper Arm] Pulse Oximetry 92 Oxygen Delivery Me thod Course Course ED Course: IV is established. CBC shows an elevated white cell count 15, platelet count is 541. Chemistries are unremarkable. CRP is markedly elevated at 21. Normal LFTs. Normal lipase. Consult was done with who recommends IV antibiotics and admission. Abdominal CT scan was done: Shows concern for possible intra abdominal abscess, for a blood clot of the right internal iliac, question bilateral pneumonia. Results discussed with - Abdominal and pelvic CTA will be ordered and patient will be transferred to the floor for further management. Vital Signs Vital signs: Initial Vital Signs Temperature 98.9 F 05/20/23 18:00 Temperature Source Temporal Artery Scan 05/20/23 18:00 Pulse Rate 85 05/20/23 18:00 Respiratory Rate 18 05/20/23 18:00 Blood Pressure 141/84 H 05/20/23 18:00 Blood Pressure Mean 103 05/20/23 18:00 Blood Pressure Position Sitting 05/20/23 18:00 Pulse Oximetry 94 05/20/23 18:00 Oxygen Delivery Method Room Air 05/20/23 18:00 Vital Signs Temperature 98.9 F 05/20/23 18:00 Pulse Rate 85 05/20/23 18:00 Respiratory Rate 18 05/20/23 18:00 Blood Pressure 141/84 H 05/20/23 18:00 Pulse Oximetry 94 05/20/23 18:00 Oxygen Delivery Method Room Air 05/20/23 18:00 Temperature 99.4 F 05/20/23 20:32 Pulse Rate 96 05/20/23 20:32 Respiratory Rate 22 05/20/23 20:32 Blood Pressure 134/80 05/20/23 20:32 Pulse Oximetry 93 05/20/23 20:32 Oxygen Delivery Method Room Air 05/20/23 20:32 Medications Administered Medications: Generic Name Dose Route Start Last Admin Trade Name Freq PRN Reason Stop Dose Admin Nicotine 1 patch 05/20/23 19:45 05/20/23 21:07 Nicotine 21 Mg Patch TRANSDERMA 1 patch Q24H ANTHONY Administration Discontinued Medications Generic Name Dose Route Start Last Admin Trade Name Allyssa PRN Reason Stop Dose Admin Hydrocodone Bitart/Acetaminophen 2 tab 05/20/23 19:04 05/20/23 19:20 Hydrocodone-Acetamin 5-325 Mg 1 Tab PO 05/20/23 19:05 2 tab ONCE ONE Administration Hydromorphone HCl 0.5 mg 05/20/23 19:30 05/20/23 19:36 Hydromorphone 0.5 Mg/0.5 Ml Inj IVP 05/20/23 19:31 0.5 mg ONCE ONE Administration Piperacillin Sod/Tazobactam 100 mls @ 200 mls/hr 05/20/23 19:30 05/20/23 20:03 Sod 3.375 gm/ Sodium Chloride IVPB 05/20/23 19:31 200 mls/hr ONCE ONE Administration Lidocaine HCl 30 ml 05/20/23 19:43 05/20/23 19:45 Lidocaine 1 % Pf 30 Ml INJECTION 30 ml ONCE PRN Administration Medical Decision Making MDM Narrative Medical decision making narrative: Postoperative infection. Patient will be admitted for further management. Zosyn was started in the ED today. Medical Records Medical records reviewed: Yes I reviewed the patient's medical records Lab Data Lab results reviewed: Yes I reviewed the patient's lab results Labs: Lab Results 05/20/23 Range/Units 18:38 WBC 15.01 H (4.50-11.00) K/uL RBC 3.66 L (4.00-5.20) m/uL Hgb 10.9 L (12.0-16.0) gm/dL Hct 34.2 (33.0-51.0) % MCV 93 (80-100) fL MCH 30 (26-34) pg MCHC 32 (32-36) gm/dL RDW Coeff of Jenifer 12.9 (11.5-15.5) % Plt Count 541 H (140-440) K/uL Neut % (Auto) 71.8 (42.0-72.0) % Lymph % (Auto) 17.6 L (20-44) % [place] % (Auto) 7.9 (0.0-11.0) % Eos % (Auto) 1.5 (0.0-7.0) % Baso % (Auto) 0.3 (0.0-3.0) % Neut # (Auto) 10.80 H (1.7-7.0) K/uL Lymph # (Auto) 2.60 (0.90-2.90) K/uL [place] # (Auto) 1.20 H (0.00-0.90) K/UL Eos # (Auto) 0.20 (0.00-0.50) K/uL Baso # (Auto) 0.00 (0.00-0.30) K/uL Abs Immat Gran (auto) 0.10 (0.00-0.30) K/uL Imm/Tot Granulo (auto) 0.9 % Sodium 138 (135-149) mmol/L Potassium 4.0 (3.6-5.1) mmol/L Chloride 109 (96-114) mmol/L Carbon Dioxide 26 (20-32) mmol/L Anion Gap 3 L (7-15) mEq/L BUN 4 L (7-30) mg/dL Creatinine 0.5 (0.5-1.5) mg/dL Estimated Creat Clear 105.28 Estimated GFR 113 ml/min Glucose 102 (60-115) mg/dL Lactate 0.7 (0.5-1.9) mmol/L Calcium 9.0 (8.4-10.6) mg/dL Total Bilirubin 0.3 (0.1-1.5) mg/dL Direct Bilirubin 0.2 (0.0-0.5) mg/dL AST 25 (12-35) U/L ALT 31 (4-35) U/L Alkaline Phosphatase 120 (40-150) U/L C-Reactive Protein 21.0 H (0.5-1.0) mg/dL Total Protein 5.7 L (6.0-8.3) g/dL Albumin 3.1 L (3.3-5.0) g/dL Lipase 123 (23-300) U/L Imaging Data CT scan - abdomen: Attestation: I have reviewed the pertinent imaging results. Radiologist's impression: CT abdomen and pelvis acquired with 99 mL Isovue 370 contrast. COMPARISON: CT abdomen/pelvis dated 05/11/2023. CT chest dated 05/13/2023. FINDINGS: Lower chest: Small bilateral pleural effusions, right greater than left. Patchy bibasilar airspace opacities, greater than would be expected for compressive atelectasis, worrisome for multifocal pneumonia. Liver: No suspicious focal hepatic lesion. Gallbladder and bile ducts: Unremarkable. Pancreas: Unremarkable. Spleen: Unremarkable. Adrenal glands: Indeterminate 0.9 cm left adrenal nodule. Kidneys: Kidneys enhance symmetrically, without hydronephrosis. Too small to characterize hypodense left renal lesions. Retroperitoneum: No lymphadenopathy. Bowel and mesentery: Extensive postsurgical changes at the cecum, compatible with appendectomy. In addition to mild residual inflammatory change, there is a small collection along the right pericolic gutter with small foci of air measuring approximately 1.9 x 1.9 x 2.1 cm. Trace amount of free fluid is noted within the right hemipelvis. Bladder: Unremarkable for degree of distention. Reproductive organs: Leiomyomatous uterus. Pelvic lymph nodes: No lymphadenopathy. Vessels: Filling defect is seen within the right internal iliac artery, concerning for thromboembolism. Abdominal wall: Postsurgical changes in the ventral abdominal wall. Residual fluid/postsurgical seroma at the umbilicus. Mild subcutaneous edema noted. Bones: Multilevel degenerative changes of the spine. No suspicious/aggressive focal osseous lesion. IMPRESSION: 1. Postsurgical changes of appendectomy. Small collection along the right pericolic gutter abutting the cecum measuring approximately 1.9 x 1.9 x 2.1 cm, may reflect a small abscess. 2. Patchy bibasilar airspace opacities, greater than would be expected for atelectasis, worrisome for multifocal pneumonia. 3. Filling defect within the right internal iliac artery, concerning for thromboembolism. 4. Indeterminate 0.9 cm left adrenal nodule. Discharge Plan Discharge Clinical Impression: Cellulitis, Complication, postoperative infection Patient Disposition: Admitted As Observation Condition: Stable
[2023-05-20 18:45] LABS: Lactate* 0.7 mmol/L (0.5-1.9)
[2023-05-20 18:49] LABS: Basophils Percent Auto 0.3 % (0.0-3.0); Eosinophils Percent Auto 1.5 % (0.0-7.0); Hematocrit 34.2 % (33.0-51.0); Hemoglobin* 10.9 gm/dL (12.0-16.0); Immature Granulocytes Pct Auto 0.9 %; Lymphocytes Percent Auto 17.6 % (20-44); Mean Corpuscular HGB Conc 32 gm/dL (32-36); Mean Corpuscular Hemoglobin 30 pg (26-34); Mean Corpuscular Volume 93 fL (80-100); Monocytes Percent Auto 7.9 % (0.0-11.0); Neutrophils Percent Auto 71.8 % (42.0-72.0); Platelet Count* 541 K/uL (140-440); RDW Coefficient of Variation % 12.9 % (11.5-15.5); Red Blood Count 3.66 m/uL (4.00-5.20); White Blood Count* 15.01 K/uL (4.50-11.00)
[2023-05-20 18:51] LABS: Slide Review Reflex No
[2023-05-20 19:00] LABS: Albumin* 3.1 g/dL (3.3-5.0)
[2023-05-20 19:01] LABS: Chloride* 109 mmol/L (96-114); Sodium* 138 mmol/L (135-149)
[2023-05-20 19:03] LABS: Alkaline Phosphatase* 120 U/L (40-150); Aspartate Amino Transferase* 25 U/L (12-35); Bilirubin Direct* 0.2 mg/dL (0.0-0.5); Bilirubin Total* 0.3 mg/dL (0.1-1.5); Total Protein* 5.7 g/dL (6.0-8.3)
[2023-05-20 19:04] LABS: Alanine Aminotransferase* 31 U/L (4-35); Creatinine* 0.5 mg/dL (0.5-1.5); Est. Creatinine Clearance* 105.28; Estimated Glomerular Filt Rate 113 ml/min; Lipase* 123 U/L (23-300)
[2023-05-20 19:05] LABS: Anion Gap 3 mEq/L (7-15); Blood Urea Nitrogen* 4 mg/dL (7-30); Carbon Dioxide* 26 mmol/L (20-32); Glucose* 102 mg/dL (60-115)
[2023-05-20] MEDS: HYDROCODONE-ACETAMIN 5-325 MG 1 TAB 2 TAB PO (19:20)
[2023-05-20] MEDS: HYDROmorphone 0.5 mg/0.5 ml inj IVP (19:36)
[2023-05-20] MEDS: LIDOCAINE 1 % PF 30 ML INJECTION (19:45)
--- NOTE | 2023-05-20 20:01 | P.GSHP_ITS ---
History of Present Illness History of Present Illness Date Seen: 05/20/23 Chief complaint: Had Appy surg this week-more pain and temp Narrative: Regina Saleem is a 52 year old female who underwent a laparoscopic converted to open right hemicolectomy for perforated appendicitis. The procedure was performed on 05/12/2023 with patient being discharged on Monday this last week. I spoke with the patient over the phone earlier today with complaints of some new pain. She initially describes the pain as underneath her ribs, sharp in nature and worsened with movement or taking a deep breath. She wonders the pain has been present this entire time, but masked by her initial incisional pain. She was taking at home Tylenol and ibuprofen scheduled, no narcotics. This afternoon she started to have some fevers (100.6) and I instructed her to come into the emergency department for further evaluation. On initial evaluation patient does have a significant amount of pain with movement. She also has redness just above her belly button and most notably on the inferior aspect of her incision with extension to her pannus. This is an area that is difficult for her to see so she is unsure when the redness began. She was tolerating a regular diet and having bowel movements at home. Review of Systems Status of ROS: Reports: 6 or more systems reviewed and unremarkable except as noted in History and below [facility] Medical History (Updated 05/25/23 @ 00:02 by Background Daemon) Acute appendicitis ?K35.80 - Unspecified acute appendicitis (ICD-10) Morbid obesity with BMI of 40.0-44.9, adult ?E66.01 - Morbid (severe) obesity due to excess calories (ICD-10) ?Z68.41 - Body mass index [BMI] 40.0-44.9, adult (ICD-10) Recurrent low back pain ?M54.50 - Low back pain, unspecified (ICD-10) Acute back pain ?M54.9 - Dorsalgia, unspecified (ICD-10) Surgical History (Updated 05/25/23 @ 00:02 by Background Daemon) S/P right hemicolectomy ?Z90.49 - Acquired absence of other specified parts of digestive tract (ICD- 10) S/P tonsillectomy ?Z90.89 - Acquired absence of other organs (ICD-10) Social History Narrative: Admits to smoking and drinking alcohol at least twice a week. 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 What is your current living situation?: I presently have a place to live Problems where you live: no known problems Problems where you live details: N/A In the past 12 months, utilities in danger of being shut off: no In past 12 months, lack of transportation kept you from medical appts, meetings, work, or getting things needed for daily living: no In the past 12 mos, have been you worried that your food would run out before you had money to buy more?: never true In the past 12 mos, the food you bought just didn't last and you didn't have money to buy more?: never true Highest level of school completed/degree received: Bachelor's degree Smoking Status: Current every day smoker What tobacco products do you use: cigarettes Years smoked: 30 Smoking quit date/years: >15 years ago Second hand tobacco smoke exposure: No How often do you have a drink containing alcohol: never How often do you have six or more drinks on one occasion: Never AUDIT-C Alcohol total score: 0 Non-prescribed substance use: denies use Caffeine: Yes (2-3 coffees daily) How often does anyone, including family, friends and others, physically hurt you : never How often does anyone, including family, friends and others, insult or talk down to you: never How often does anyone, including family, friends and others, threaten you with harm: never How often does anyone, including family, friends and others, scream or curse at you: never service: No Meds Home Medications and Allergies Home Medications Medication Instructions Recorded Confirmed Type hydrocodone 5 mg-acetaminophen 325 1 tab PO Q6H PRN pain 05/21/23 05/21/23 History mg tablet Allergies Allergy/AdvReac Type Severity Reaction Status Date / Time No Known Drug Allergies Allergy Verified 05/13/23 12:58 Exam Narrative: Exam Narrative: General: Alert and oriented, nontoxic in appearance. Respiratory: Equal breath rise bilaterally, clear breath sounds and maintained on room air CV: Well perfused Abdomen: A midline incision with maryam in place. Erythema and induration to a small area just above the umbilicus. More significant erythema and induration on the inferior aspect of the incision with extension to the lower abdomen/pannus. Areas warm to the touch and tender to palpation. Const: Vital Signs, click to edit/add: Vital Signs - 24 hr 05/20/23 18:00 05/20/23 19:20 Temperature 98.9 F 98.9 F Pulse Rate [Right Pulse Oximeter] 85 Respiratory Rate 18 Blood Pressure [Ri ght Upper Arm] 141/84 H Pulse Oximetry 94 Oxygen Delivery Me thod Room Air Results Results Labs: Leukocytosis (15). Abdomen CT scan report/results: report reviewed and image reviewed General Surgery Procedures I/D Type: abscess Site: abdomen (Incision site) Anesthetic used: lidocaine 1% Technique: incised with #11 blade (5 maryam removed and underlying tissue incised with plate.) Amount of fluid (mL): 30 Irrigation: Yes Packing used?: plain (3 in Kerlix) Progress Note:A&P Assessment and plan (1) Surgical site infection: Status: Acute Assessment and Plan: Patient is status post laparoscopic converted to open right hemicolectomy for acute appendicitis. She is postop day 8 with complication of surgical site infection, intra-abdominal abscess and filling defect within the right internal iliac artery concerning for thromboembolism. Small bilateral pleural effusions were also noted on the imaging. This is likely due to the patient not taking deep breaths secondary to pain. At this time she remains on room air. No clinical concern for pneumonia For the surgical site infection I removed 5 of the maryam on the inferior aspect of the incision. A large amount of purulent material was drained and a culture sent. The abscess cavity was bluntly debrided with my finger to ensure adequate drainage. The cavity measured approximately 4 x 3 x 3 cm in size. The wound was irrigated and packed with 3 in Kerlix gauze. The erythema on her abdomen was outlined with a marking pen. A small fluid collection is seen in the right pericolic gutter measuring 1.9 x 1.9 x 2.1 cm near the anastomosis. This is an area of pain for the patient and likely contributing to her leukocytosis and fevers. Could represent a small anastomotic leak, but on imaging is well encapsulated and lateral to the staple line, which appears intact with no significant surrounding fluid. More likely to be a post op abscess. Will start her on IV Zosyn for both the surgical site infection and intra-abdominal abscess. I spoke with the radiologist regarding the filling defect of the right internal iliac artery. This is concerning for possible thromboembolism. It was not seen on the previous CT scan from 05/11/2023. No evidence of occlusion. This is near the operative field. Patient does not have a personal or family history of clotting disorder. Risks and benefits of initiating therapeutic anticoagulation with hematologic workup verses confirmatory imaging were discussed at length with the patient. At this time the patient agrees to pursuing a CTA in order to confirm the presence of a clot verses artifact.
[2023-05-20] MEDS: PIPERACILLIN/TAZOBACTAM 3.375 GM in 0.9 % SODIUM CHLORIDE Mini-bag 100 ML IVPB (20:03)
--- NOTE | 2023-05-20 20:33 | CT_ITS ---
Patient: HOLLY JOHNSON Facility:?[facility] Patient ID:?[id number] Site Patient ID:?[id number]. Site :?[id number] Study:?CT-Abdomen/Pelvis Arterial with 95cc [id number]/16/2024 11:52:46 PM Ordering Physician:maurice Final Report: Indication: Abnormal CT, concern for arterial thrombosis Technique: CT through the abdomen and pelvis following 95 mL Isovue 370 IV contrast in the arterial phase Comparison: Same day CT abdomen and pelvis Findings: Lower chest: Unchanged pleural effusions and patchy opacities. Hepatobiliary: No significant parenchymal abnormality is appreciated. Spleen: Unremarkable. Pancreas: No acute abnormality appreciated. Adrenal glands: No acute abnormality appreciated. Kidneys: No significant parenchymal abnormality appreciated. No visualized calculi. No hydronephrosis. Bowel: No obstruction. Postoperative changes of the cecum again noted. Vascular: Central filling defects at the right iliac artery bifurcation with nonocclusive thrombus in the right internal iliac artery. No other appreciated filling defects. Lymph nodes: Unchanged. Peritoneum: Unchanged stranding and fluid collection in the right lower quadrant. : Unchanged. Soft tissues: Unchanged. Bones: Unchanged. Impression: 1. Examination is positive for nonocclusive thrombus in the right iliac bifurcation and extending into the internal iliac artery. No other arterial filling defect is appreciated. 2. No other significant interval change. Please note that all CT scans at this facility use dose modulation, iterative reconstruction, and/or weight-based dosing when appropriate to reduce radiation dose to as low as reasonably achievable. Dictated by Albert Purcell MD @ 05/21/2023 12:15:04 AM Signed by:?Albert Purcell MD @05/21/2023 12:15:04 AM (Electronic Signature)
[2023-05-20] MEDS: NICOTINE 21 MG PATCH 1 PATCH TRANSDERMA (21:07)
[2023-05-20] MEDS: 0.9 % SODIUM CHLORIDE 250 ml IV (22:13)
[2023-05-20] MEDS: KETOROLAC 15 MG/ML inj IVP (23:51)
[2023-05-21] VITALS (15 sets, daily range): BP systolic 109–144; BP diastolic 66–90; PULSE 95–108; RESP 16–20; TEMP 37.3–39.3; O2SAT 86–95
[2023-05-21] MEDS: MAG HYDROX/ALUMINUM HYD/SIMETH 30 ML ORAL.SUSP 15 ML PO (00:16)
--- NOTE | 2023-05-21 00:58 | PC.NURSE ---
Latest CT of abdomen and pelvis report received. Impression. 1. Examination is positive for nonocclusive thrombus in the right iliac bifurcation and extending into the internal iliac artery. No other arterial filling defect is appreciated. Dr. Ruano already aware of thrombus previously noted. design editor attempted to call MD Ruano to provide update of latest result though did not answer.
--- NOTE | 2023-05-21 01:01 | PC.NURSE ---
Informational note: Pt brought in incentive spirometer from home as she received one post-operatively earlier this month.
--- NOTE | 2023-05-21 02:39 | PC.NURSE ---
MD Ruano returned phone call at this time regarding CT and is putting in orders for Lovenox, IV ABX and ongoing NS.
[2023-05-21] MEDS: 0.9 % SODIUM CHLORIDE 1000 ml 1,000 ML 125 ML IV ×3 (03:31→19:28)
[2023-05-21] MEDS: PIPERACILLIN/TAZOBACTAM 3.375 GM in 0.9 % SODIUM CHLORIDE Mini-bag 100 ML IVPB ×4 (03:32→20:42)
[2023-05-21] MEDS: ENOXAPARIN 100 MG/ML INJ SUBCUT ×2 (03:32→15:52)
[2023-05-21] MEDS: ACETAMINOPHEN 325 MG TABLET 650 MG PO ×4 (03:46→21:34)
[2023-05-21] MEDS: ONDANSETRON 2 MG/ML inj IVP (03:50)
--- NOTE | 2023-05-21 06:31 | PC.NURSE ---
End of shift note: Pt noted to be alert & oriented x 4 and able to make needs known. Pt has been transferring with SBA using 4WW. Slightly elevated temp of 99.7 noted this morning with PRN Tylenol given. PRN Zofran given to treat nausea along with aromatherapy patch. Pt did eat 100% of pudding cup last evening though has declined anything else to eat when offered. She has been drinking water and had 4 oz apple juice last evening.?Nicotine patch in place to L upper arm. IV to L AC patent and SL. NS running in R wrist IV at 125 mL/hr. Pt continues on IV ABX and started on Lovenox this shift to treat nonocclusive thrombus per CT report. Dumper did update pt regarding CT findings and MD ordering Lovenox. Pt has been continent of bladder and reports last BM of 05/20/23. Dressings to abdominal incision noted to be C/D/I upon inspection. SCDs worn to bilateral lower extremities. Pt has had no vomiting noted or reported throughout the shift.
[2023-05-21 07:06] LABS: Hemoglobin* 9.5 gm/dL (12.0-16.0); Mean Corpuscular Hemoglobin 30 pg (26-34); Mean Corpuscular Volume 95 fL (80-100); Red Blood Count 3.15 m/uL (4.00-5.20); White Blood Count* 15.27 K/uL (4.50-11.00)
[2023-05-21 07:07] LABS: Basophils Percent Auto 0.3 % (0.0-3.0); Eosinophils Percent Auto 1.9 % (0.0-7.0); Immature Granulocytes Pct Auto 0.3 %; Lymphocytes Percent Auto 11.1 % (20-44); Mean Corpuscular HGB Conc 32 gm/dL (32-36); Monocytes Percent Auto 8.4 % (0.0-11.0); Platelet Count* 496 K/uL (140-440)
[2023-05-21 07:21] LABS: Chloride* 106 mmol/L (96-114); Potassium* 3.8 mmol/L (3.6-5.1); Sodium* 136 mmol/L (135-149)
[2023-05-21 07:23] LABS: Slide Review Reflex No
[2023-05-21 07:24] LABS: Anion Gap 5 mEq/L (7-15); Blood Urea Nitrogen* 3 mg/dL (7-30); Carbon Dioxide* 25 mmol/L (20-32); Creatinine* 0.5 mg/dL (0.5-1.5); Est. Creatinine Clearance* 105.28; Estimated Glomerular Filt Rate 113 ml/min
[2023-05-21 07:25] LABS: Calcium* 8.3 mg/dL (8.4-10.6); Glucose* 95 mg/dL (60-115)
[2023-05-21] MEDS: HYDROmorphone 0.5 mg/0.5 ml inj IVP ×2 (07:48→16:24)
--- NOTE | 2023-05-21 08:23 | PM.GSPN ---
Subjective Subjective Date Seen: 05/21/23 Interval history: Patient feels like her abdominal pain on the right side is improved. She still has pain at the incision site, but this is also better compared to yesterday. Low-grade fevers overnight. She continues to pass gas. She is feeling hungry this morning, denies any nausea or vomiting. Exam Narrative: Exam Narrative: General: Alert and oriented, no acute distress. Nontoxic Abdomen: Soft, nontender to palpation with no guarding or rebound on the right side of abdomen. Appropriate incisional tenderness with dressings in place. Packing was removed, saturation of serosanguineous drainage. No purulence noted. Surrounding erythema is within outlined area. Continued redness around the umbilicus and just above. Two maryam were removed from this area and underlying tissue palpated with no fluid collection or purulence noted. Const: Vital Signs, click to edit/add: Vital Signs - 24 hr 05/20/23 18:00 05/20/23 19:20 05/20/23 20:06 Temperature 98.9 F 98.9 F Pulse Rate [Pulse Oximeter] Pulse Rate [Right Pulse Oximeter] 85 87 Respiratory Rate 18 18 Blood Pressure [Le ft Arm] Blood Pressure [Ri ght Upper Arm] 141/84 H 144/71 H Pulse Oximetry [address] thod Room Air Room Air 05/20/23 20:07 05/20/23 20:32 05/20/23 20:46 Temperature 99.4 F 99.4 F Pulse Rate [Pulse Oximeter] 96 96 Pulse Rate [Right Pulse Oximeter] Respiratory Rate 22 22 Blood Pressure [Le ft Arm] 134/80 134/80 Blood Pressure [Ri ght Upper Arm] Pulse Oximetry [address] thod Room Air Room Air 05/20/23 20:46 05/20/23 23:00 05/20/23 23:56 Temperature 99.4 F Pulse Rate [Pulse Oximeter] 96 92 Pulse Rate [Right Pulse Oximeter] Respiratory Rate 22 22 18 Blood Pressure [Le ft Arm] 134/92 H Blood Pressure [Ri ght Upper Arm] Pulse Oximetry [address] thod Room Air Room Air 05/21/23 03:39 05/21/23 03:46 05/21/23 07:00 Temperature 99.7 F H 99.7 F H 99.1 F Pulse Rate [Pulse Oximeter] 99 95 Pulse Rate [Right Pulse Oximeter] Respiratory Rate 18 16 Blood Pressure [Le ft Arm] 134/90 H 122/67 Blood Pressure [Ri ght Upper Arm] Pulse Oximetry 93 92 Oxygen Delivery Me thod Room Air Room Air Labs/Imaging Labs Labs: Persistent leukocytosis (15-->15). CRP 21-->pending this morning Imaging Imaging: CTA is positive for nonocclusive thrombus in the right iliac bifurcation and extending into the internal iliac artery. Progress Note:A&P Assessment and plan (1) Arterial thrombosis: Status: Acute Assessment and Plan: Evidence of nonocclusive thrombus at the right iliac bifurcation and extending into the internal iliac artery. Patient with no known history of clotting disease and no reported family history. Initiated therapeutic Lovenox last night, 100 mg subcutaneous q.12 hours. Will continue with anticoagulation and plan for Hematology consult on Monday. (2) Postoperative abscess: Status: Acute Assessment and Plan: Intra-abdominal abscess of the right upper quadrant. Abscess is 2 cm in size, will treat at this time with IV antibiotics. Patient is reporting less pain this morning. She continues to have low-grade fevers and leukocytosis. Will continue broad-spectrum antibiotics Zosyn and vancomycin. (3) Surgical site infection: Status: Acute Assessment and Plan: Dressings changed at bedside. Persistent erythema and induration, although not extending beyond outlined area. Will broaden antibiotics to include coverage for MRSA with vancomycin. Wound culture is pending. Will plan for b.i.d. dressing changes while inpatient. Plan -okay for regular diet -p.o. and IV pain meds as needed for dressing changes -IV Zosyn and vancomycin -trend fever curve and labs -Lovenox 100 mg b.i.d. -b.i.d. dressing changes while inpatient -encourage ambulation
[2023-05-21 08:51] LABS: C Reactive Protein* 18.3 mg/dL (0.5-1.0)
--- NOTE | 2023-05-21 12:27 | PC.NURSE ---
Addendum entered by Emily Ann RN 05/21/23 17:03: Midline incision red, swollen- dressing changed this AM w/ Dr. Ruano. Elevated temps, requiring 1L NC off and on all day. Decreased appetite all day, encouraged drinking. Up to bathroom x2- ~1000 clear yellow urine. No BM- is passing gas. Frequent belching. PIV in left and right arms- NS @ 125 cc/hr. Will continue to monitor, follow POC, and keep pt and family updated. Emily Ann RN Original Note: ~1100 pt got up to bathroom and on return, had chills, jaw shaking uncontrollably. O2 in low to mid 80s, tachycardic- 120s, temp- 99.9, respirations=20. Denied SOB. Pain of 5. Placed on 1L NC. Notified Dr. Ruano- ordered PRN oxy for pain as pt states [facility] has not worked for her in the past and has not taken it and requested that our hospitalist assess her. Reassessed @ 1130- O2 low 90s, HR- high 90s/low 100s, temp 99.0. Emily Ann RN
[2023-05-21] MEDS: OXYCODONE 5 MG TABLET PO ×2 (13:05→19:29)
--- NOTE | 2023-05-21 13:53 | PM.IMCN1 ---
Date of Consult Consult date: 05/21/23 Requesting Physician: General Surgery Primary Care Provider: Not a Local Provider Consult Narrative Narrative: Regina Saleem is a 52 year old female patient for management of medical problems following a open right hemicolectomy for perforated appendicitis. Procedure was performed on 05/12/2023. Initially attempted as a laparoscopic procedure but due to perforation converted to open and right hemicolectomy performed. Her recovery was relatively uncomplicated she was discharged to home on May 16. Since May 16 she has had the development of abdominal pain around her incision as well as right flank pain. She was admitted to the hospital last night where she had I and D of her surgical incision where an abscess was found. She also had a CT of the abdomen and pelvis with notable findings of an abscess in the right pericolic gutter and a filling defect in the right iliac artery which was determined to be a thrombosis in the bifurcation extending into the right iliac artery. This is adjacent to the area where her surgery was performed 9 days ago. She is not having any pain in her right leg. No numbness or tingling. Since her surgery she has had atelectasis at the right lung base. That appears to have gotten a bit worse on this admission and raise the possibility of a basilar multifocal pneumonia. With the abdominal wound infection and abscess in her pericolic gutter she was placed on piperacillin tazobactam. No further antibiotics were added for her possible pneumonia. She was started on therapeutic enoxaparin for her arterial thrombosis. Review of Systems Narrative: She reports her pain is better today, both the right pericolic gutter pain and her incisional pain. She did have a some fever and chills earlier today. She has no shortness of breath and is not requiring oxygen. She has a decreased appetite but has been tolerating p.o. food and fluid. No family history or personal history of thrombophilia or bleeding problems. She does note that her father had a stroke when he was older and after his stroke he did have a DVT. [facility] Medical History (Updated 05/21/23 @ 14:19 by Eliazar Alva MD) Morbid obesity with BMI of 40.0-44.9, adult ?E66.01 - Morbid (severe) obesity due to excess calories (ICD-10) ?Z68.41 - Body mass index [BMI] 40.0-44.9, adult (ICD-10) Recurrent low back pain ?M54.50 - Low back pain, unspecified (ICD-10) Acute back pain ?M54.9 - Dorsalgia, unspecified (ICD-10) Surgical History (Updated 05/21/23 @ 14:15 by Eliazar Alva MD) S/P right hemicolectomy ?Z90.49 - Acquired absence of other specified parts of digestive tract (ICD-10) S/P tonsillectomy ?Z90.89 - Acquired absence of other organs (ICD-10) Social History Narrative: Admits to smoking and drinking alcohol at least twice a week. 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 What is your current living situation?: I presently have a place to live Problems where you live: no known problems Problems where you live details: N/A In the past 12 months, utilities in danger of being shut off: no In past 12 months, lack of transportation kept you from medical appts, meetings, work, or getting things needed for daily living: no In the past 12 mos, have been you worried that your food would run out before you had money to buy more?: never true In the past 12 mos, the food you bought just didn't last and you didn't have money to buy more?: never true Highest level of school completed/degree received: Bachelor's degree Smoking Status: Current every day smoker What tobacco products do you use: cigarettes Years smoked: 30 Smoking quit date/years: >15 years ago Second hand tobacco smoke exposure: No How often do you have a drink containing alcohol: never How often do you have six or more drinks on one occasion: Never AUDIT-C Alcohol total score: 0 Non-prescribed substance use: denies use Caffeine: Yes (2-3 coffees daily) How often does anyone, including family, friends and others, physically hurt you: never How often does anyone, including family, friends and others, insult or talk down to you: never How often does anyone, including family, friends and others, threaten you with harm: never How often does anyone, including family, friends and others, scream or curse at you: never service: No Meds Home Medications and Allergies Home Medications Medication Instructions Recorded Confirmed Type hydrocodone 5 mg-acetaminophen 325 1 tab PO Q6H PRN pain 05/21/23 05/21/23 History mg tablet Allergies Allergy/AdvReac Type Severity Reaction Status Date / Time No Known Drug Allergies Allergy Verified 05/13/23 12:58 Exam Narrative: Exam Narrative: She is alert and appears in no distress. Breathing comfortably on room air. She gives her own history. Oropharynx with small airway. Neck is supple without mass or adenopathy. Respirations are clear to auscultation without wheezing rales or rhonchi. Cardiovascular: S1, S2, regular rate and rhythm. No murmur gallop or rub. Abdomen: Bowel sounds present. Abdomen with a large bandage over her midline incision. She has mild diffuse tenderness consistent with her postoperative status and I&D and intra-abdominal infection. No peritonitis. Lower extremities with 1+ edema bilaterally. Feet are both warm to touch with good capillary refill. Posterior tibial and dorsalis pedis pulses are strong in both feet. Intact sensation in both feet and legs. Const: Vital Signs, click to edit/add: Vital Signs - 24 hr 05/20/23 18:00 05/20/23 19:20 05/20/23 20:06 Temperature 98.9 F 98.9 F Pulse Rate [Pulse Oximeter] Pulse Rate [Right Pulse Oximeter] 85 87 Respiratory Rate 18 18 Blood Pressure [Le ft Arm] Blood Pressure [Ri ght Upper Arm] 141/84 H 144/71 H Pulse Oximetry 94 92 Oxygen Delivery Me thod Room Air Room Air Oxygen Flow Rate 05/20/23 20:07 05/20/23 20:32 05/20/23 20:46 Temperature 99.4 F 99.4 F Pulse Rate [Pulse Oximeter] 96 96 Pulse Rate [Right Pulse Oximeter] Respiratory Rate 22 22 Blood Pressure [Le ft Arm] 134/80 134/80 Blood Pressure [Ri ght Upper Arm] Pulse Oximetry 92 93 93 Oxygen Delivery Me thod Room Air Room Air Oxygen Flow Rate 05/20/23 20:46 05/20/23 23:00 05/20/23 23:56 Temperature 99.4 F Pulse Rate [Pulse Oximeter] 96 92 Pulse Rate [Right Pulse Oximeter] Respiratory Rate 22 22 18 Blood Pressure [Le ft Arm] 134/92 H Blood Pressure [Ri ght Upper Arm] Pulse Oximetry 93 92 Oxygen Delivery Me thod Room Air Room Air Oxygen Flow Rate 05/21/23 03:39 05/21/23 03:46 05/21/23 07:00 Temperature 99.7 F H 99.7 F H 99.1 F Pulse Rate [Pulse Oximeter] 99 95 Pulse Rate [Right Pulse Oximeter] Respiratory Rate 18 16 Blood Pressure [Le ft Arm] 134/90 H 122/67 Blood Pressure [Ri ght Upper Arm] Pulse Oximetry 93 92 Oxygen Delivery Me thod Room Air Room Air Oxygen Flow Rate 05/21/23 10:31 05/21/23 10:51 05/21/23 10:52 Temperature 99.9 F H 99.9 F H Pulse Rate [Pulse Oximeter] 108 H 107 H Pulse Rate [Right Pulse Oximeter] Respiratory Rate 20 Blood Pressure [Le ft Arm] 130/86 144/87 H Blood Pressure [Ri ght Upper Arm] Pulse Oximetry 86 L 91 Oxygen Delivery Me thod Room Air Nasal Cannula Oxygen Flow Rate 1 05/21/23 12:10 Temperature Pulse Rate [Pulse Oximeter] Pulse Rate [Right Pulse Oximeter] Respiratory Rate Blood Pressure [Le ft Arm] 112/66 Blood Pressure [Ri ght Upper Arm] Pulse Oximetry Oxygen Delivery Me thod Oxygen Flow Rate Documenting provider has reviewed patient's vital signs: yes Labs Labs: Short CBC 05/20/23 05/21/23 Range/Units 18:38 05:53 WBC 15.01 H 15.27 H (4.50-11.00) K/uL Hgb 10.9 L 9.5 L (12.0-16.0) gm/dL Hct 34.2 30.0 L (33.0-51.0) % Plt Count 541 H 496 H (140-440) K/uL BMP 05/20/23 05/21/23 18:38 05:53 Sodium 138 136 Potassium 4.0 3.8 Chloride 109 106 Carbon Dioxide 26 25 BUN 4 L 3 L Creatinine 0.5 0.5 Glucose 102 95 Calcium 9.0 8.3 L Liver Function 05/20/23 Range/Units 18:38 Total Bilirubin 0.3 (0.1-1.5) mg/dL Direct Bilirubin 0.2 (0.0-0.5) mg/dL AST 25 (12-35) U/L ALT 31 (4-35) U/L Alkaline Phosphatase 120 (40-150) U/L Albumin 3.1 L (3.3-5.0) g/dL Assessment and Plan Assessment and plan (1) S/P right hemicolectomy: Problem comment: Postoperative day 9 Status: Acute (2) 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 Anticoagulate. Consult vascular surgery Status: Acute (3) Postoperative abscess: Problem comment: Abscess in pericolic gutter adjacent to cecum. Status: Acute (4) Complication, postoperative infection: Problem comment: Surgical wound infection status post I&D on May 19 Status: Acute (5) Morbid obesity with BMI of 40.0-44.9, adult: Status: Acute (6) Pneumonia: Problem comment: Bibasilar infiltrates suggest pneumonia. She is not currently hypoxic. Is currently receiving Zosyn. Respiratory therapy to consult. Increase activity. Continue to monitor as she recovers from her abdominal infections. Status: Acute Plan Continue inpatient care with IV antibiotics for her infections and therapeutic enoxaparin for her arterial thrombosis. Obtain echocardiogram. Obtain consult with vascular surgery. Total Time Spent Total Time Spent: Total time spent is 70 minutes, 50 minutes in coordination of care and discussing with patient and other providers ongoing management of pneumonia/atelectasis/intra-abdominal abscess/arterial thrombosis
[2023-05-21] MEDS: NICOTINE 21 MG PATCH 1 PATCH TRANSDERMA (19:28)
--- NOTE | 2023-05-21 21:41 | PC.NURSE ---
[id number]: Patient pleasant. Tylenol administered for temp of 102.6. Dressing to abdomen changed and C/D/I. Cousin Brian at bedside and supportive. BS active. Tolerating regular diet. Denies N/V. Passing gas and BMx1. Belching frequently. Pain controlled w/PRN Oxycodone. Patient hesitant to ambulate. Nurse educated patient on importance of ambulation and encouraged patient to ambulate several times daily. Patient ambulated in jenkins x1. Tolerated well. Patient requires verbal cues to use IS.
[2023-05-22] VITALS (10 sets, daily range): BP systolic 124–140; BP diastolic 76–92; PULSE 90–96; RESP 16–20; TEMP 36.6–37.9; O2SAT 90–96
[2023-05-22] MEDS: PIPERACILLIN/TAZOBACTAM 3.375 GM in 0.9 % SODIUM CHLORIDE Mini-bag 100 ML IVPB ×4 (02:41→21:12)
[2023-05-22] MEDS: ENOXAPARIN 100 MG/ML INJ SUBCUT ×2 (02:41→15:32)
[2023-05-22] MEDS: 0.9 % SODIUM CHLORIDE 1000 ml 1,000 ML 125 ML IV ×3 (02:44→21:18)
--- NOTE | 2023-05-22 04:09 | PC.NURSE ---
Pt rested well this evening. Up IND and ambulating to BR and voiding. Passing gas, and belching. Pain controlled. Wound CDI, with dressing changed earlier in evening. Afebrile.
[2023-05-22] MEDS: ACETAMINOPHEN 325 MG TABLET 650 MG PO ×4 (04:42→21:30)
[2023-05-22] MEDS: OXYCODONE 5 MG TABLET PO ×4 (04:43→21:10)
[2023-05-22] MEDS: MAG HYDROX/ALUMINUM HYD/SIMETH 30 ML ORAL.SUSP 15 ML PO (04:50)
[2023-05-22 06:33] LABS: Basophils Percent Auto 0.5 % (0.0-3.0); Hematocrit 29.1 % (33.0-51.0); Hemoglobin* 9.4 gm/dL (12.0-16.0); Immature Granulocytes Pct Auto 0.2 %; Lymphocytes Percent Auto 16.3 % (20-44); Mean Corpuscular HGB Conc 32 gm/dL (32-36); Mean Corpuscular Hemoglobin 31 pg (26-34); Mean Corpuscular Volume 95 fL (80-100); Monocytes Percent Auto 10.8 % (0.0-11.0); Neutrophils Percent Auto 69.2 % (42.0-72.0); Platelet Count* 471 K/uL (140-440); RDW Coefficient of Variation % 13.1 % (11.5-15.5); Red Blood Count 3.05 m/uL (4.00-5.20); White Blood Count* 11.03 K/uL (4.50-11.00)
[2023-05-22 06:38] LABS: Slide Review Reflex No
[2023-05-22 06:51] LABS: Chloride* 108 mmol/L (96-114); Potassium* 3.9 mmol/L (3.6-5.1); Sodium* 137 mmol/L (135-149)
[2023-05-22 06:53] LABS: Creatinine* 0.6 mg/dL (0.5-1.5); Est. Creatinine Clearance* 87.73; Estimated Glomerular Filt Rate 109 ml/min
[2023-05-22 06:54] LABS: Anion Gap 1 mEq/L (7-15); Carbon Dioxide* 28 mmol/L (20-32)
[2023-05-22 06:55] LABS: Blood Urea Nitrogen* 4 mg/dL (7-30); Calcium* 8.3 mg/dL (8.4-10.6); Glucose* 96 mg/dL (60-115)
[2023-05-22 07:10] LABS: C Reactive Protein* 20.7 mg/dL (0.5-1.0)
--- NOTE | 2023-05-22 10:59 | P.IMPN_ITS ---
Progress Note: A&P Assessment and plan (1) Postoperative abscess: Problem details: Abscess in pericolic gutter adjacent to cecum. Management per general surgery Status: Acute (2) Arterial thrombosis: Problem details: Right iliac artery thrombosis. Currently on therapeutic lovenox. Prior hospitalist discussed with Dr. Mark Fishman, vascular surgeon at [facility]. He recommended 3 months of full anticoagulation and to follow up in their clinic prior to stopping AC. -Transition to DOAC at discharge Status: Acute (3) S/P right hemicolectomy: Problem details: Postoperative day 9 Status: Acute (4) Pneumonia: Problem details: Bibasilar infiltrates suggest pneumonia. She is not currently hypoxic. Is currently receiving Zosyn. Respiratory therapy to consult. Increase activity. Continue to monitor as she recovers from her abdominal infections. Status: Acute (5) Morbid obesity with BMI of 40.0-44.9, adult: Status: Acute Subjective Date Seen: 05/22/23 Interval history: Patient is seen and examined. She is having ongoing abdominal pain which makes it difficult to take a deep breath. She denies chest pain. No new symptoms. We discussed the arterial blood clot and recommendations per prior hospitalist's discussion with vascular surgery. Questions answered to the best of my ability. Exam: General- uncomfortable, but non-toxic appearing HEENT- NCAT Resp- Shallow inspiratory effort, diminished in bilateral bases R>L but no crackles or wheezes CV- RRR, no m/g/r Abd- Mild distension, tender especially in RLQ Exam Const: Vital Signs, click to edit/add: Vital Signs - 24 hr 05/21/23 12:10 05/21/23 15:47 05/21/23 16:04 Temperature 102.7 F H 102.7 F H Pulse Rate [Pulse Oximeter] 104 H Respiratory Rate 20 Blood Pressure [Le ft Arm] 112/66 130/80 Blood Pressure [Ri ght Arm] Pulse Oximetry 95 Oxygen Delivery Me thod Nasal Cannula Oxygen Flow Rate 1.0 05/21/23 18:01 05/21/23 18:08 05/21/23 22:24 Temperature 100.7 F H 100.7 F H 99.6 F Pulse Rate [Pulse Oximeter] 96 103 H Respiratory Rate 20 16 Blood Pressure [Le ft Arm] 109/81 113/71 Blood Pressure [Ri ght Arm] Pulse Oximetry 93 92 Oxygen Delivery Me thod Nasal Cannula Nasal Cannula Oxygen Flow Rate 1.0 1 05/21/23 22:25 05/21/23 22:26 05/21/23 22:28 Temperature 99.6 F Pulse Rate [Pulse Oximeter] 103 H Respiratory Rate 16 16 Blood Pressure [Le ft Arm] Blood Pressure [Ri ght Arm] Pulse Oximetry 92 Oxygen Delivery Me thod Nasal Cannula Oxygen Flow Rate 1 05/22/23 02:48 05/22/23 04:42 05/22/23 07:00 Temperature 98.2 F 98.2 F 97.8 F Pulse Rate [Pulse Oximeter] 90 94 Respiratory Rate 16 20 Blood Pressure [Le ft Arm] 125/76 Blood Pressure [Ri ght Arm] 128/92 H Pulse Oximetry 93 96 Oxygen Delivery Me thod Nasal Cannula Room Air Oxygen Flow Rate 0.5 05/22/23 07:00 05/22/23 07:00 Temperature Pulse Rate [Pulse Oximeter] 94 Respiratory Rate 20 Blood Pressure [Le ft Arm] Blood Pressure [Ri ght Arm] Pulse Oximetry 96 Oxygen Delivery Me thod Room Air Oxygen Flow Rate Labs Labs: Laboratory Results - last 24 hr 05/22/23 06:19 WBC 11.03 H RBC 3.05 L Hgb 9.4 L Hct 29.1 L MCV 95 MCH 31 MCHC 32 RDW Coeff of Jenifer 13.1 Plt Count 471 H Neut % (Auto) 69.2 Lymph % (Auto) 16.3 L Mcpherson % (Auto) 10.8 Eos % (Auto) 3.0 Baso % (Auto) 0.5 Neut # (Auto) 7.60 H Lymph # (Auto) 1.80 Mcpherson # (Auto) 1.20 H Eos # (Auto) 0.30 Baso # (Auto) 0.10 Abs Immat Gran (auto) 0.00 Imm/Tot Granulo (auto) 0.2 Sodium 137 Potassium 3.9 Chloride 108 Carbon Dioxide 28 Anion Gap 1 L BUN 4 L Creatinine 0.6 Estimated Creat Clear 87.73 Estimated GFR 109 Glucose 96 Calcium 8.3 L C-Reactive Protein 20.7 H
[2023-05-22] MEDS: HYDROmorphone 0.5 mg/0.5 ml inj IVP ×2 (11:34→19:55)
--- NOTE | 2023-05-22 11:50 | PM.GSPN ---
Subjective Subjective Date Seen: 05/22/23 Interval history: Patient's pain is better controlled today. She denies nausea vomiting. She is having loose bowel movements. Exam Narrative: Exam Narrative: Abdomen is soft, not distended, tender to palpation near the right superior flank, midline laparotomy incision with intact maryam. The lower part of the incision that was opened has no purulence on the dressing. The skin edges without erythema. The superior half of the incision has erythema in the middle of this part of the incision. All the maryam were removed today. A small skin opening was made in the superior part of the midline incision. Bloody clear serosanguineous fluid came out from this part of the incision. This was packed with moist gauze. The packing from the lower midline incision was removed and the base of the incision looks clean with no purulence. This was repacked with moist gauze. The midline incision was covered with gauze and tape. Const: Vital Signs, click to edit/add: Vital Signs - 24 hr 05/21/23 12:10 05/21/23 15:47 05/21/23 16:04 Temperature 102.7 F H 102.7 F H Pulse Rate [Pulse Oximeter] 104 H Respiratory Rate 20 Blood Pressure [Le ft Arm] 112/66 130/80 Blood Pressure [Ri ght Arm] Pulse Oximetry 95 Oxygen Delivery Me thod Nasal Cannula Oxygen Flow Rate 1.0 05/21/23 18:01 05/21/23 18:08 05/21/23 22:24 Temperature 100.7 F H 100.7 F H 99.6 F Pulse Rate [Pulse Oximeter] 96 103 H Respiratory Rate 20 16 Blood Pressure [Le ft Arm] 109/81 113/71 Blood Pressure [Ri ght Arm] Pulse Oximetry 93 92 Oxygen Delivery Me thod Nasal Cannula Nasal Cannula Oxygen Flow Rate 1.0 1 05/21/23 22:25 05/21/23 22:26 05/21/23 22:28 Temperature 99.6 F Pulse Rate [Pulse Oximeter] 103 H Respiratory Rate 16 16 Blood Pressure [Le ft Arm] Blood Pressure [Ri ght Arm] Pulse Oximetry 92 Oxygen Delivery Me thod Nasal Cannula Oxygen Flow Rate 1 05/22/23 02:48 05/22/23 04:42 05/22/23 07:00 Temperature 98.2 F 98.2 F 97.8 F Pulse Rate [Pulse Oximeter] 90 94 Respiratory Rate 16 20 Blood Pressure [Le ft Arm] 125/76 Blood Pressure [Ri ght Arm] 128/92 H Pulse Oximetry 93 96 Oxygen Delivery Me thod Nasal Cannula Room Air Oxygen Flow Rate 0.5 05/22/23 07:00 05/22/23 07:00 Temperature Pulse Rate [Pulse Oximeter] 94 Respiratory Rate 20 Blood Pressure [Le ft Arm] Blood Pressure [Ri ght Arm] Pulse Oximetry 96 Oxygen Delivery Me thod Room Air Oxygen Flow Rate Progress Note:A&P Assessment and plan (1) S/P right hemicolectomy: Status: Acute Plan 52-year-old female readmitted with surgical site infection and intra-abdominal abscess as well as right common iliac blood clot s/p laparoscopic appendectomy converted to open right hemicolectomy for perforated appendicitis on 05/11/2023. Patient is on broad-spectrum antibiotics (vanco and Zosyn). Her WBC has improved to 11 today from 15 yesterday. The previously opened part of her midline incision looks clean with no surrounding erythema. I opened an additional part of the incision superior to the umbilicus and serosanguineous fluid came out from this part of the incision. This was packed open as well. All maryam were removed today. Patient required IV pain medication prior to dressing change. Patient is on therapeutic Lovenox b.i.d. for arterial clot. The etiology of her arterial clot is not clear. I will discuss with the hospitalist initiating hypercoagulability workup. Will continue with regular diet for now.
--- NOTE | 2023-05-22 12:01 | PC.NURSE ---
Dr. Peña was here and changed patients dressing.
--- NOTE | 2023-05-22 12:03 | PC.NURSE ---
Didn't eat breakfast as her pain was too bad and she needed to go to the bathroom
--- NOTE | 2023-05-22 18:02 | PC.NURSE ---
End of shift Note: Patient has been up ambulating per self. Her morning dressing change was done by Dr. Peña. Her dressing has been clean,dry and intact. Pain has been controlled with oral pain medication except did receive x1 of dilaudid for the dressing change to help make it tolerable. No nause or voimiting noted. Has been having small loose stools. Will continue to monitor until next shift arrives.
[2023-05-22] MEDS: NICOTINE 21 MG PATCH 1 PATCH TRANSDERMA (21:20)
[2023-05-22] MEDS: SIMETHICONE 80 MG TAB.CHEW 160 MG PO (22:13)
[2023-05-23] VITALS (16 sets, daily range): BP systolic 76–154; BP diastolic 55–90; PULSE 79–160; RESP 18–24; TEMP 36.7–37.6; O2SAT 92–98
[2023-05-23] MEDS: ENOXAPARIN 100 MG/ML INJ SUBCUT (03:14)
[2023-05-23] MEDS: PIPERACILLIN/TAZOBACTAM 3.375 GM in 0.9 % SODIUM CHLORIDE Mini-bag 100 ML IVPB ×2 (03:14→08:31)
[2023-05-23] MEDS: OXYCODONE 5 MG TABLET PO ×2 (03:14→11:22)
[2023-05-23] MEDS: ONDANSETRON 2 MG/ML inj IVP ×2 (03:33→04:16)
--- NOTE | 2023-05-23 05:08 | W.PM.CROSSCO ---
Subjective Subjective Interval history: HR in 140-160 after vomiting. EKG suggests SVT. Trial of vagal maneuver. Telemetry overnight. If no response plan for adenosine.
--- NOTE | 2023-05-23 05:40 | PM.CCEN ---
Critical Care Event Note Summary Time Seen by Provider: 05:41 Date Seen: 05/23/23 Code activated: No Narrative: Suspected SVT with HR 150-160s. EKG personally reviewed: Narrow complex tachycardia likely SVT. Risk of hemodynamic compromise. Vagal maneuvers unsuccessful. Patient w/o chest pain, dyspnea, or lightheadedness Regina Saleem was seen as a interactive tele-health visit General: Non-toxic but ill-appearing female, vitals reviewed Cardiac: HR 144-161, irregular Pulmonary: No respiratory distress, no tachypnea Abd: Distended 5:39 initial video assessment 5:46 on credentials specialist with pads on 5:52 adenosine 6 mg IV x1, flutter waves see on monitor 5:59 BP 101/70, given 500 mL NS bolus and 5 mg of IV metoprolol 6:04 100/75 after metoprolol, HR 120s-130s 6:11 98/66, 2.5 mg of IV metoprolol given 6:16 84/67, asymptomatic, HR 110-120s 6:21 76/59 still asymptomatic, HR 110-140 6:25 102/60, Digoxin 500 mcg IV x1 6:31 107/63, HR 110s-130s 6:35 85/55, HR 109 6:39 99/68 6:51 NSR with HR 80s-90s, 114/76 6:54 end of service A Flutter with RVR Ordered CBC, BMP, Mg Echocardiogram already ordered Patient already on anticoagulation for iliac thrombus Prior to admission home medications that were felt to be needed immediately have been ordered. The remainder of the home medications will await pharmacy reconciliation and will be ordered by the attending provider in the a.m. Telehealth Visit: Today's History and Physical is provided via interactive telehealth by Dr. Daniel Higuera MD. Patient is located at [facility]. Provider is located at [facility]. Nursing staff assisted with the patient's exam. The visit being done today meets criteria for a telehealth visit and the patient or patients parent/guardian is aware the visit is a telehealth visit. Camera Start Time: 538 Camera End Time: 653 Medical Complexity: ~~~~~~~~~~~~~~~~ Dr. Daniel Higuera ~~~~~~~~~~~~~~~~ Disclaimer: This note may contain dictation using voice recognition software. As a result, there may be errors that have gone undetected. Please consider this when interpreting information found in this note. This case had a high probability of a clinically significant, sudden, or life threatening deterioration of this patient's condition which required my full and direct attention, intervention and personal management. Critical care time: 30 - 74 mins
[2023-05-23] MEDS: ADENOSINE 6 MG/2ML INJ IVP (05:52)
[2023-05-23] MEDS: METOPROLOL TARTRATE 1 MG/ML inj 5 MG IVP (05:57)
[2023-05-23] MEDS: 0.9 % SODIUM CHLORIDE 500 ML 500 ML IV ×3 (05:57→06:30)
[2023-05-23] MEDS: METOPROLOL TARTRATE 1 MG/ML inj 2.5 MG IVP (06:09)
[2023-05-23] MEDS: DIGOXIN 250 MCG/ML inj 500 MCG IV (06:26)
[2023-05-23 06:32] LABS: Basophils Percent Auto 0.3 % (0.0-3.0); Eosinophils Percent Auto 2.7 % (0.0-7.0); Hematocrit 29.8 % (33.0-51.0); Hemoglobin* 9.3 gm/dL (12.0-16.0); Immature Granulocytes Pct Auto 0.2 %; Lymphocytes Percent Auto 15.2 % (20-44); Mean Corpuscular HGB Conc 31 gm/dL (32-36); Mean Corpuscular Hemoglobin 30 pg (26-34); Mean Corpuscular Volume 96 fL (80-100); Monocytes Percent Auto 10.4 % (0.0-11.0); Neutrophils Percent Auto 71.2 % (42.0-72.0); Platelet Count* 544 K/uL (140-440); RDW Coefficient of Variation % 12.9 % (11.5-15.5); Red Blood Count 3.11 m/uL (4.00-5.20); White Blood Count* 11.32 K/uL (4.50-11.00)
[2023-05-23 06:37] LABS: Slide Review Reflex No
[2023-05-23 07:19] LABS: Chloride* 109 mmol/L (96-114); Potassium* 3.9 mmol/L (3.6-5.1); Sodium* 138 mmol/L (135-149)
[2023-05-23 07:22] LABS: Anion Gap 2 mEq/L (7-15); Blood Urea Nitrogen* 3 mg/dL (7-30); Carbon Dioxide* 27 mmol/L (20-32); Creatinine* 0.6 mg/dL (0.5-1.5); Est. Creatinine Clearance* 87.73; Estimated Glomerular Filt Rate 109 ml/min; Glucose* 94 mg/dL (60-115)
[2023-05-23 07:23] LABS: Calcium* 8.1 mg/dL (8.4-10.6); Magnesium* 2.2 mg/dL (1.5-2.6)
--- NOTE | 2023-05-23 08:12 | XR_ITS ---
Patient: HOLLY JOHNSON Facility:?[facility] Patient ID:?[id number] Site Patient ID:?[id number]. Site :?[id number] Study:?XRay-Chest -05/23/2023 10:57:05 AM Ordering Physician:ZAFAR FOWLER Final Report: INDICATION: hypoxia TECHNIQUE: Chest 2 views COMPARISON: CT chest 05/20/2023 FINDINGS: Airspace densities are present within both lower lobes, similar to the prior CT chest. Fullness of the interstitial markings are present elsewhere throughout the pulmonary parenchyma. Cardiac silhouette is nonenlarged. Trace bilateral pleural effusions. No pneumothorax. Mild intrathoracic adenopathy. IMPRESSION: Bilateral infiltrates with trace bilateral pleural effusions. Dictated by Hieu Pascal MD @ 05/23/2023 11:15:57 AM Signed by:?Hieu Pascal MD @05/23/2023 11:15:57 AM (Electronic Signature)
--- NOTE | 2023-05-23 09:25 | PC.NURSE ---
Pt alert and oriented x3. Pt had elevated temperature of 100.0 F, PRN Tylenol given. Pt reports 7/10 pain in abdomen, PRN medications given. Pt reports feeling unsure the oxycodone is helping, pt tried oxycodone for pain x2 throughout night with little relief. Pt reports pain stays within same range. Pt reported concern about pain control when going home, and having difficulties with finding out the person to talk to about pain medications after asking several people. RN discussed pt's concerns with oncoming RN and charge aide suggested pt advocate involvement. Pt was given PRN Dilaudid before abdominal dressing change, pt had small serosanguineous drainage on 4x4, abdominal dressing is CDI. Around 0445 pt's heart rate was 160-170s after returning the from restroom and an episode of emesis. Pt was settled back into bed but continued to be tachycardic 130-[address] Higuera updated, orders given to do Valsalva maneuvers. Pt attempted x6 with decelerations of heart rate but heart rate returned to 130-160s, Dr Higuera updated again, orders given to give adenosine, with him on screen in room, with crash cart on stand by. Dr Higuera appeared on screen at 0540. See documentation in chart for medications administrations and times given and vitals. NSR confirmed at [address] Higuera with EKG.
[2023-05-23] MEDS: ACETAMINOPHEN 325 MG TABLET 650 MG PO (11:21)
[2023-05-23] MEDS: 0.9 % SODIUM CHLORIDE 1000 ml 1,000 ML 125 ML IV (11:23)
[2023-05-23] MEDS: levoFLOXacin 750 MG/150 ML 750 MG/150 ML PIGGYBACK 100 MG IVPB (11:23)
[2023-05-23] MEDS: ASPIRIN 81 MG TAB.CHEW PO (12:20)
[2023-05-23] MEDS: ROSUVASTATIN CALCIUM 10 MG TABLET PO (12:20)
[2023-05-23] MEDS: PERFLUTREN LIPID MICROSPHERES 2 ML VIAL IV (12:29)
--- NOTE | 2023-05-23 12:49 | PM.DS1 ---
DS: Providers Provider Date Seen: 05/23/23 Date of admission: 05/22/23 11:00 Primary care physician: Not a Local Provider Admitting Clinician: Eliazar Alva MD Attending Physician on discharge: Yael Munoz MD DS: Diagnosis Discharge Diagnosis (1) Atrial thrombus: Status: Acute (2) Anterior myocardial infarction: Status: Acute Problem details: Noted on 05/23/23, but suspect that NY occurred perioperatively 12 days ago when she had her hemicolectomy. She had new onset atrial flutter on 05/22, subsequently given adenosine, metoprolol and ultimately digoxin and converted to sinus rhythm. Echocardiogram was ordered and concerning for new decreased LV apical function and a mural thrombus. (3) Morbid obesity with BMI of 40.0-44.9, adult: Status: Acute (4) Pneumonia: Status: Acute Problem details: Unclear if infiltrates reflect a true pneumonia. She is not currently hypoxic. Is currently receiving Zosyn and levaquin (wound culture showed ampicillin resistant Klebsiella oxytoca). Respiratory therapy consulted. Continue to monitor as she recovers from her abdominal infections. (5) S/P right hemicolectomy: Status: Acute Problem details: Postoperative day 12 (6) Postoperative abscess: Status: Acute Problem details: Abscess in pericolic gutter adjacent to cecum. Management per general surgery (7) Arterial thrombosis: Status: Acute Problem details: Right iliac artery thrombosis. Currently on therapeutic lovenox. Prior hospitalist discussed with Dr. Mark Fishman, vascular surgeon at [facility]. He recommended 3 months of full anticoagulation and to follow up in their clinic prior to stopping AC. -Transition to DOAC at discharge (8) Surgical site infection: Status: Acute (9) Complication, postoperative infection: Status: Acute Problem details: Surgical wound infection status post I&D on May 19 (10) Hypoxia: Status: Acute Problem details: Active smoker Patient intermittently required low dose supplemental Oxygen. She has weaned to room air, but suspect now has some decompensated CHF as weight is up and CXR shows pulmonary congestion. In the setting of recent NY, likely has depressed EF (official read of echo is pending). Blood pressures have been low when HR increases, so will hold off on diuresis at this time, but suspect she will need diuresis in coming days. (11) Tachycardia: Status: Acute DS: Summary Hospital Course Hospital Course: Patient is a 52yo who presented to the hospital with uncontrolled post op pain in her abdomen. She initially presented on 05/11/23 for 1 week of abdominal pain. She was diagnosed with perforated appendicitis and went to OR for management. Unfortunately, presentation was late and there was significant adhesion/inflammation and she ultimately required a right hemicolectomy. She recovered in the hospital and discharged to home. She returned on 05/[address] revealed intra-abdominal abscess and incisional infection. She was admitted by general surgery who partially opened her wound and placed packing while she was initiated on broad spectrum antibiotics with vancomycin and zosyn. CT raised concern for a possible iliac arterial thrombus so she underwent dedicated CTA which revealed a non-occlusive right iliac artery thrombus. This was felt possibly related to surgery due to location proximity to her surgical site, although would be quite unusual. Case was discussed with [facility] vascular surgery who recommended therapeutic anticoagulation for 3 months with an appointment to see them in clinic prior to the 3 month anthony. She was started on therapeutic lovenox. Patient's MRSA swab was negative and vanco was discontinued. Wound culture returned with amp/sulbactam resistant Klebsiella so Levofloxacin was added to the Zosyn for ongoing coverage. Leukocytosis improved. Patient's course has been complicated by mild hypoxia thought secondary to atelectasis from splinting vs lower lobe pneumonia. She continues to have ongoing pain in her abdomen which has been somewhat difficult to control, but she has been able to advance her diet and mobilize a little. hand slitter 05/22, patient developed heart palpitations, but no pain. EKG revealed SVT. She was put on telemetry and given adenosine which slowed her rate from 140s to 110s and 12-lead EKG showed atrial flutter. She was given IV metoprolol, but HR remained elevated and BP was quite low, so she was given a dose of IV digoxin. She subsequently converted to sinus rhythm with improvement in her BP. Electrolytes were unremarkable, TSH is pending. Echocardiogram was ordered and preliminary read showed new apical WMA with depressed EF and concern for an apical thrombus. I spoke with plug wirer, Dr. Rosas at [place] who recommended the patient be transferred there for further management. She was given a baby aspirin and crestor was initiated prior to discharge. She is currently hemodynamically stable, but suspect her instability with tachycardia and hypotension was due to new cardiac issue rather than infection/sepsis. However, general surgery warns that there is a small abscess which may need to be watched if evidence of sepsis arises. Plan was to treat conservatively with antibiotics, but if worsening is likely in a position amenable to percutaneous drain. Status at Discharge Functional status at discharge: independent ambulation Overall status at discharge: patient is not back to baseline Time Spent with Patient Time attestation: Total time spent providing and/or coordinating discharge services: Time spent: Greater than 30 minutes Exam Narrative: Exam Narrative: General: No distress, laying in bed HEENT: NCAT Resp: Not taking deep breaths, diminished in bilateral bases, no wheeze/ronchi CV: RRR Abd: Soft, mildly TTP Neuro: Nonfocal Const: Vital Signs, click to edit/add: Vital Signs - 24 hr 05/22/23 15:00 05/22/23 15:00 05/22/23 15:00 Temperature 98.8 F Pulse Rate Pulse Rate [Pulse Oximeter] 96 96 Respiratory Rate 16 16 Blood Pressure [Le ft Arm] Blood Pressure [Ri ght Arm] 135/83 Pulse Oximetry 94 94 Oxygen Delivery Me thod Room Air Room Air Oxygen Flow Rate 05/22/23 16:34 05/22/23 17:44 05/22/23 19:50 Temperature 100.3 F H 99.7 F H 99.2 F Pulse Rate Pulse Rate [Pulse Oximeter] 93 Respiratory Rate 16 Blood Pressure [Le ft Arm] 124/82 Blood Pressure [Ri ght Arm] Pulse Oximetry 93 Oxygen Delivery Me thod Room Air Oxygen Flow Rate 05/22/23 21:30 05/22/23 23:00 05/22/23 23:00 Temperature 100 F H Pulse Rate Pulse Rate [Pulse Oximeter] Respiratory Rate 16 20 Blood Pressure [Le ft Arm] Blood Pressure [Ri ght Arm] Pulse Oximetry 94 Oxygen Delivery Me thod Room Air Oxygen Flow Rate 0.5 05/22/23 23:00 05/23/23 03:10 05/23/23 03:13 Temperature 100 F H 98.0 F 98.0 F Pulse Rate Pulse Rate [Pulse Oximeter] 96 97 Respiratory Rate 20 20 Blood Pressure [Le ft Arm] Blood Pressure [Ri ght Arm] 139/88 154/90 H Pulse Oximetry 94 92 Oxygen Delivery Me thod Nasal Cannula Nasal Cannula Oxygen Flow Rate 0.5 0.5 05/23/23 05:43 05/23/23 05:55 05/23/23 05:59 Temperature Pulse Rate Pulse Rate [Pulse Oximeter] 155 H 160 H 146 H Respiratory Rate 20 20 18 Blood Pressure [Le ft Arm] Blood Pressure [Ri ght Arm] 105/87 96/71 101/70 Pulse Oximetry 98 95 94 Oxygen Delivery Me thod Nasal Cannula Nasal Cannula Oxygen Flow Rate 1 1 05/23/23 06:04 05/23/23 06:09 05/23/23 06:15 Temperature Pulse Rate Pulse Rate [Pulse Oximeter] 130 H 150 H 130 H Respiratory Rate 24 Blood Pressure [Le ft Arm] Blood Pressure [Ri ght Arm] 100/75 98/66 84/67 L Pulse Oximetry 95 94 94 Oxygen Delivery Me thod Nasal Cannula Nasal Cannula Nasal Cannula Oxygen Flow Rate 1 1 1 05/23/23 06:20 05/23/23 06:25 05/23/23 06:30 Temperature Pulse Rate Pulse Rate [Pulse Oximeter] 140 H 150 H 140 H Respiratory Rate 18 22 20 Blood Pressure [Le ft Arm] Blood Pressure [Ri ght Arm] 76/59 L 102/60 107/63 Pulse Oximetry 97 96 96 Oxygen Delivery Me thod Nasal Cannula Nasal Cannula Nasal Cannula Oxygen Flow Rate 1 1 05/23/23 06:35 05/23/23 06:35 05/23/23 06:50 Temperature Pulse Rate Pulse Rate [Pulse Oximeter] 130 H 130 H 87 Respiratory Rate 22 24 20 Blood Pressure [Le ft Arm] Blood Pressure [Ri ght Arm] 85/55 L 99/68 114/76 Pulse Oximetry 94 92 93 Oxygen Delivery Me thod Nasal Cannula Nasal Cannula Nasal Cannula Oxygen Flow Rate 1 1 1 05/23/23 07:03 05/23/23 08:30 05/23/23 08:30 Temperature 99.3 F Pulse Rate 86 Pulse Rate [Pulse Oximeter] 79 Respiratory Rate 18 18 Blood Pressure [Le ft Arm] Blood Pressure [Ri ght Arm] 103/67 Pulse Oximetry 93 93 Oxygen Delivery Me thod Nasal Cannula Nasal Cannula Oxygen Flow Rate 1 1 05/23/23 11:50 Temperature 99.7 F H Pulse Rate Pulse Rate [Pulse Oximeter] 90 Respiratory Rate 18 Blood Pressure [Le ft Arm] Blood Pressure [Ri ght Arm] 110/79 Pulse Oximetry 92 Oxygen Delivery Me thod Room Air Oxygen Flow Rate DS: Data Data Completed and Pending Labs on day of discharge: Labs from last 24 hours 05/23/23 05/23/23 05/23/23 12:20 07:21 06:13 WBC 11.32 H RBC 3.11 L Hgb 9.3 L Hct 29.8 L MCV 96 MCH 30 MCHC 31 L RDW Coeff of Jenifer 12.9 Plt Count 544 H Neut % (Auto) 71.2 Lymph % (Auto) 15.2 L [place] % (Auto) 10.4 Eos % (Auto) 2.7 Baso % (Auto) 0.3 Neut # (Auto) 8.10 H Lymph # (Auto) 1.70 [place] # (Auto) 1.20 H Eos # (Auto) 0.30 Baso # (Auto) 0.00 Abs Immat Gran (auto) 0.00 Imm/Tot Granulo (auto) 0.2 Sodium 138 Potassium 3.9 Chloride 109 Carbon Dioxide 27 Anion Gap 2 L BUN 3 L Creatinine 0.6 Estimated Creat Clear 87.73 Estimated GFR 109 Glucose 94 Calcium 8.1 L Magnesium 2.2 Troponin I Pending TSH 1.670 Lab Acknowledgement Test Added Preliminary micro results at discharge 05/20/23 19:22 Blood Culture - Preliminary Blood NO GROWTH AFTER 48 HOURS 05/20/23 19:03 Blood Culture - Preliminary Blood NO GROWTH AFTER 48 HOURS Discharge Plan Discharge Disposition: [facility] Date of Admission: 05/22/23 11:00 Attending Provider on Discharge: Yael Munoz Primary Care Provider: Provider,Not a Local Condition: Stable Discharge Orders: Transfer of Care to Other Hospital (ORDER); Ordered 05/23/23 Ordered By: Yael Munoz Services not available here: cardiology, vascular
[2023-05-23] MEDS: HYDROmorphone 0.5 mg/0.5 ml inj IVP ×2 (12:58→15:14)
[2023-05-23 12:59] LABS: Troponin I* < 0.01 ng/mL (0.01-0.04)
--- NOTE | 2023-05-23 13:25 | PM.GSPN ---
Subjective Subjective Date Seen: 05/23/23 Interval history: Patient developed tachycardia last night that converted to atrial flutter and then back to sinus rhythm. Patient denies any chest pain. She vomited 1 time yesterday during her episode of tachycardia. Her abdominal pain on the right side is unchanged. She does not feel like p.o. pain medication is helping her pain. She has been passing gas. Patient had an echo today that showed apical clot. This most likely the culprit of her internal iliac clot. Patient is on therapeutic Lovenox. Exam Narrative: Exam Narrative: Abdomen is soft, not distended, tender to palpation in the right mid abdomen in a similar location as yesterday. No peritoneal signs. Patient's midline incision has 2 open areas that are packed with wet to dries. The superior part of the incision that was erythematous yesterday is now significantly improved and has no surrounding erythema. The dressing was changed and repacked today. Const: Vital Signs, click to edit/add: Vital Signs - 24 hr 05/22/23 15:00 05/22/23 15:00 05/22/23 15:00 Temperature 98.8 F Pulse Rate Pulse Rate [Pulse Oximeter] 96 96 Respiratory Rate 16 16 Blood Pressure [Le ft Arm] Blood Pressure [Ri ght Arm] 135/83 Pulse Oximetry 94 94 Oxygen Delivery Me thod Room Air Room Air Oxygen Flow Rate 05/22/23 16:34 05/22/23 17:44 05/22/23 19:50 Temperature 100.3 F H 99.7 F H 99.2 F Pulse Rate Pulse Rate [Pulse Oximeter] 93 Respiratory Rate 16 Blood Pressure [Le ft Arm] 124/82 Blood Pressure [Ri ght Arm] Pulse Oximetry 93 Oxygen Delivery Me thod Room Air Oxygen Flow Rate 05/22/23 21:30 05/22/23 23:00 05/22/23 23:00 Temperature 100 F H Pulse Rate Pulse Rate [Pulse Oximeter] Respiratory Rate 16 20 Blood Pressure [Le ft Arm] Blood Pressure [Ri ght Arm] Pulse Oximetry 94 Oxygen Delivery Ms thod Room Air Oxygen Flow Rate 0.5 05/22/23 23:00 05/23/23 03:10 05/23/23 03:13 Temperature 100 F H 98.0 F 98.0 F Pulse Rate Pulse Rate [Pulse Oximeter] 96 97 Respiratory Rate 20 20 Blood Pressure [Le ft Arm] Blood Pressure [Ri ght Arm] 139/88 154/90 H Pulse Oximetry 94 92 Oxygen Delivery Me thod Nasal Cannula Nasal Cannula Oxygen Flow Rate 0.5 0.5 05/23/23 05:43 05/23/23 05:55 05/23/23 05:59 Temperature Pulse Rate Pulse Rate [Pulse Oximeter] 155 H 160 H 146 H Respiratory Rate 20 20 18 Blood Pressure [Le ft Arm] Blood Pressure [Ri ght Arm] 105/87 96/71 101/70 Pulse Oximetry 98 95 94 Oxygen Delivery Me thod Nasal Cannula Nasal Cannula Oxygen Flow Rate 1 1 05/23/23 06:04 05/23/23 06:09 05/23/23 06:15 Temperature Pulse Rate Pulse Rate [Pulse Oximeter] 130 H 150 H 130 H Respiratory Rate 24 Blood Pressure [Le ft Arm] Blood Pressure [Ri ght Arm] 100/75 98/66 84/67 L Pulse Oximetry 95 94 94 Oxygen Delivery Me thod Nasal Cannula Nasal Cannula Nasal Cannula Oxygen Flow Rate 1 1 1 05/23/23 06:20 05/23/23 06:25 05/23/23 06:30 Temperature Pulse Rate Pulse Rate [Pulse Oximeter] 140 H 150 H 140 H Respiratory Rate 18 22 20 Blood Pressure [Le ft Arm] Blood Pressure [Ri ght Arm] 76/59 L 102/60 107/63 Pulse Oximetry 97 96 96 Oxygen Delivery Me thod Nasal Cannula Nasal Cannula Nasal Cannula Oxygen Flow Rate 1 1 05/23/23 06:35 05/23/23 06:35 05/23/23 06:50 Temperature Pulse Rate Pulse Rate [Pulse Oximeter] 130 H 130 H 87 Respiratory Rate 22 24 20 Blood Pressure [Le ft Arm] Blood Pressure [Ri ght Arm] 85/55 L 99/68 114/76 Pulse Oximetry 94 92 93 Oxygen Delivery Me thod Nasal Cannula Nasal Cannula Nasal Cannula Oxygen Flow Rate 1 1 1 05/23/23 07:03 05/23/23 08:30 05/23/23 08:30 Temperature 99.3 F Pulse Rate 86 Pulse Rate [Pulse Oximeter] 79 Respiratory Rate 18 18 Blood Pressure [Le ft Arm] Blood Pressure [Ri ght Arm] 103/67 Pulse Oximetry 93 93 Oxygen Delivery Me thod Nasal Cannula Nasal Cannula Oxygen Flow Rate 1 1 03/19/24 11:50 Temperature 99.7 F H Pulse Rate Pulse Rate [Pulse Oximeter] 90 Respiratory Rate 18 Blood Pressure [Le ft Arm] Blood Pressure [Ri ght Arm] 110/79 Pulse Oximetry 92 Oxygen Delivery Me thod Room Air Oxygen Flow Rate Progress Note:A&P Assessment and plan (1) S/P right hemicolectomy: Status: Acute Plan 52-year-old female s/p right hemicolectomy on 05/11/2023 now with evidence of anterior KY with thrombus. Patient is completely asymptomatic from her [place]. She denied any symptoms immediately postoperatively. Cardiology has been involved and patient will be transferred to the tertiary center. Her WBC remains elevated at 11 and was 11 yesterday. Patient feels that her the right-sided abdominal pain is slightly better than compared to 2 days ago. We will continue IV antibiotics for her intra-abdominal abscess. If patient's WBC is increasing or the pain is not resolving, I would consider repeating CT abdomen and pelvis to ensure that intra-abdominal abscess is not getting larger.
--- NOTE | 2023-05-23 15:20 | PC.NURSE ---
Pt. transferred to [facility] via [facility]. [id number] report given to Nurse Estrella at [facility].
== END 2023-05-23 15:20 | disposition short-term general hospital (02) | DRG 862 ==
LOC: ED 19:50 → MEDSURG 20:32
PROVIDERS: Family Medicine; Internal Medicine; Admitting Provider Surgery; Emergency Provider Family Medicine; Visit Provider Family Medicine
DX: T81.43XA Infection following a procedure, organ and space surgical site, initial encounter (principal); I21.09 ST elevation (STEMI) myocardial infarction involving other coronary artery of anterior wall; K65.1 Peritoneal abscess; I74.5 Embolism and thrombosis of iliac artery; Z68.41 Body mass index [BMI] 40.0-44.9, adult; J95.89 Other postprocedural complications and disorders of respiratory system, not elsewhere classified; J98.11 Atelectasis; L02.211 Cutaneous abscess of abdominal wall; I47.10 Supraventricular tachycardia, unspecified; I48.92 Unspecified atrial flutter; I97.89 Other postprocedural complications and disorders of the circulatory system, not elsewhere classified; I97.191 Other postprocedural cardiac functional disturbances following other surgery; T81.49XA Infection following a procedure, other surgical site, initial encounter; G89.18 Other acute postprocedural pain; E66.01 Morbid (severe) obesity due to excess calories; F17.210 Nicotine dependence, cigarettes, uncomplicated
CPT/HCPCS: 36415; 71046; 74174; 74177; 80048; 80076; 83605; 83690; 83735; 84443; 84484; 85025; 86140; 87040; 87070; 87186; 87205; 93306; 94761; 99284; A9270; G0378; J0153; J1160; J1170; J1650; J1885; J1956; J2001; J2405; J2543; J3370; J7030; J7050; Q9957; Q9967; S4990

== ENCOUNTER 2023-05-23 15:11 | Outpatient (CLI) | payer OTHER, SELFPAY | END 2023-05-23 15:12 | disposition home or self-care (01) | LOC: AMB 05-24 12:40 | PROVIDERS: Visit Provider Family Medicine | DX: I51.3 Intracardiac thrombosis, not elsewhere classified (principal); I21.09 ST elevation (STEMI) myocardial infarction involving other coronary artery of anterior wall | CPT/HCPCS: A0425; A0427 ==

== ENCOUNTER 2024-03-06 15:38 | Emergency (ER) | payer OTHER, SELFPAY ==
--- OUTSIDE RECORDS SUMMARY | 2024-03-06 15:40 | XMS_ITS | Continuity of Care Document ---
Author Name NwHIN User [id number]-a llowed Address Unknown Organization Unknown Address Unknown Procedures FILTER APPLIED:Only known Procedures with Onset Date within the last 5 years Procedure Date Procedure Provider Additiona l Information Status HC MNT INDIV INITIAL EA 15MIN (39825) Completed TTE W/DOPPLER COMPLETE (22682) Completed ASSAY OF MAGNESIUM (41284) Completed X-RAY EXAM CHEST 2 VIEWS (95605) Completed ASSAY THYROID STIM HORMONE (05403) Completed ASSAY OF TROPONIN QUANT (62960) Completed SMEAR GRAM STAIN (11799) Completed CULTURE OTHR SPECIMN AEROBIC (77217) Completed COMPLETE CBC W/AUTO DIFF WBC (20850) Completed MICROBE SUSCEPTIBLE SANDOVAL (39725) Completed ASSAY OF LACTIC ACID (07590) Completed CT ABD PELV W/CONTRAST (95520) Completed EMERGENCY DEPT VISIT MOD MDM (27743) Completed BLOOD CULTURE FOR BACTERIA (68802) Completed ROUTINE VENIPUNCTURE (09214) Completed METABOLIC PANEL TOTAL CA (14437) Completed CT ANGIO ABD PELV W/O W/DYE (69893) Completed MEASURE BLOOD OXYGEN LEVEL (04469) Completed C-REACTIVE PROTEIN (81825) Completed ASSAY OF LIPASE (28193) Completed HEPATIC FUNCTION PANEL (94194) Completed BLOOD GASES ANY COMBINATION (37264) Completed X-RAY EXAM CHEST 1 VIEW (70419) Completed ASSAY OF TROPONIN QUANT (52496) Completed CT ANGIOGRAPHY CHEST (02656) Completed ASSAY OF PHOSPHORUS (30411) Completed ASSAY OF MAGNESIUM (94513) Completed ASSAY OF NATRIURETIC PEPTIDE (53093) Completed ELECTROCARDIOGRAM TRACING (39113) Completed HEMOGLOBIN (49450) Compl eted TAP BLOCK BI INJECTION (83245) Completed EMERGENCY DEPT VISIT HI MDM (05475) Completed ECHO GUIDE FOR BIOPSY (15655) Completed ASSAY OF LACTIC ACID (57045) Completed EMERGENCY DEPT VISIT MOD MDM (37718) Completed ANESTH SURG LOWER ABDOMEN (16545) Completed MEASURE BLOOD OXYGEN LEVEL (39370) Completed URINE CULTURE/COLONY COUNT (01819) Completed C-REACTIVE PROTEIN (03551) Completed COMPLETE CBC W/AUTO DIFF WBC (75726) Completed ASSAY OF LIPASE (34369) Completed URINE TEST (13711) Completed URINALYSIS AUTO W/SCOPE (37949) Completed HEPATIC FUNCTION PANEL (31300) Completed METABOLIC PANEL TOTAL CA (95750) Completed CT ABD PELV W/CONTRAST (36085) Completed TISSUE EXAM BY PATHOLOGIST (31453) Completed ROUTINE VENIPUNCTURE (88624) Completed Encounters FILTER APPLIED:Only known Encounters with Admission Date within the last 5 years Encounter Location Admission Discharge Billing Code Customer Program Specialist Attender Inpatient [id number] Zandra Peña Inpatient [id number] Lavell Alva Outpatient Stacie euceda Outpatient [facility] PRASHANTH MELENDEZ Unknown [id number] CHELSIE TYLER Outpatient [id number] HANSEL MALDONADO
--- OUTSIDE RECORDS SUMMARY | 2024-03-06 15:40 | XMS_ITS | Clinical Summary ---
Author Organization [facility] Address [place], [place] [address] Care Team Providers Care Limousine Rental Clerk Name Role Phone [facility] Unavailable Sisi Day DO Primary Care Provider [phone] Aure Torres FILING CLERK Unavailable [phone] Allergies Active Allergy Reactions Criticality Noted Date Comments Venom-Wasp Edema 09/29/2023 Medications furosemide (LASIX) 20 mg tabletIndications :HFrEF (heart failure with reduced ejection fraction) (HC) Take 1 Tablet (20 mg) by mouth once daily if needed (For weight gain of 3 lbs in 24 hours, or 5 lbs in 1 week). 30 Tablet 1 4 6:37 PM CDT 06/05/19 24 Active nitroglycerin (NITROSTAT) 0.4 mg sublingual tabletIndications :ASHD (arteriosclerotic heart disease) Place 1 Tablet (0.4 mg) under the tongue every 5 minutes if needed for Chest Pain. Up to 3 tablets in 15 minutes. 25 Tablet 1 4 6:37 PM CDT 06/05/19 24 Active acetaminophen (TYLENOL EXTRA STRGTH) 500 mg tabletIndications :Postprocedural intraabdominal abscess (HC) Take 2 Tablets (1,000 mg) by mouth every 8 hours. Max acetaminophen dose: 4000mg in 24 hrs. 06/12/19 24 Active clopidogreL (PLAVIX) 75 mg tabletIndications :ASHD (arteriosclerotic heart disease) Take 1 Tablet (75 mg) by mouth every morning. 90 Tablet 3 06/26/19 24 Active nicotine 2 mg lozengeIndication s:Tobacco use disorder, moderate, in early remission Place 1 Lozenge (2 mg) in mouth, between cheek & gum every hour while awake as needed for Nicotine Craving. 100 Each 3 07/07/19 24 Active metoprolol succinate (TOPROL XL) 25 mg Sustained-Release tabletIndications :Paroxysmal atrial fibrillation (HC),ASHD (arteriosclerotic heart disease) Take 1 Tablet (25 mg) by mouth once daily. 90 Tablet 3 08/08/19 24 Active pantoprazole (PROTONIX) 40 mg delayed-release tabletIndications :Acute GI bleeding Take 1 Tablet (40 mg) by mouth once daily before a meal. 90 Tablet 2 09/12/19 24 Active atorvastatin (LIPITOR) 40 mg tabletIndications :ASHD (arteriosclerotic heart disease),Mixed hyperlipidemia Take 1 Tablet (40 mg) by mouth at bedtime. 90 Tablet 2 09/12/19 24 Active EPINEPHrine (EPIPEN) 0.3 mg/0.3 mL auto-injectorIndi cations:Allergy to insect venom Inject 0.3 mg (1 Pen) intramuscular each time if needed for Allergic Reaction. 2 Each 3 09/29/19 24 Active trimethoprim-sulf amethoxazole 160-800 mg tabIndications:Ab scess of abdominal wall Take 1 Tablet by mouth two times daily. 14 Tablet 11/20/19 24 Active CPAPIndications:O SA (obstructive sleep apnea),Snoring,No cturnal hypoxemia CPAP (E0601) machine for home use at pressure: 5-16 , Choice of mask (A7030 or A7034) w/full face cushion (A7031) x1/mo, nasal cushion (A7032) x2/mo, or nasal pillows (A7033) x 2/mo; Length of Need: 99 months; Frequency of use: Daily 1 Each 12/01/19 24 Active lisinopriL (PRINIVIL; ZESTRIL) 2.5 mg tabletIndications :ASHD (arteriosclerotic heart disease),NSTEMI (non-ST elevated myocardial infarction) (HC),HFrEF (heart failure with reduced ejection fraction) (HC) Take 1 Tablet (2.5 mg) by mouth once daily. 90 Tablet 12/12/19 24 Active triamcinolone 0.1 % ointmentIndicatio ns:Atopic dermatitis, unspecified type Apply topically to affected area(s) three times daily. 15 g 12/27/19 24 Active DULoxetine (CYMBALTA) 30 mg Delayed-release capsuleIndication s:Adjustment disorder with mixed anxiety and depressed mood Take 3 Capsules (90 mg) by mouth once daily. 90 Capsule 3 12/29/19 24 Active nicotine 14 mg/24 hr (NICODERM; HABITROL) 14 mg/24 hr patchIndications: Tobacco use disorder, moderate, in early remission Apply 1 Patch on dry, clean, hairless skin once daily. 14 Patch 3 01/26/20 24 Active warfarin (COUMADIN) 5 mg tabletIndications :LV (left ventricular) mural thrombus following NH (HC),Iliac artery thrombosis, right (HC),Anticoagulat ion monitoring, INR range 2-3 Take by mouth 7.5 mg (5 mg x 1.5) every Monday/ ay; 10 mg (5 mg x 2) all other days in the evening OR as directed. 02/14/20 24 Active ezetimibe (Zetia) 10 mg tabletIndications :ASHD (arteriosclerotic heart disease),Mixed hyperlipidemia Take 1 Tablet (10 mg) by mouth once daily. 30 Tablet 3 03/01/20 24 Active midodrine (PROAMATINE) 5 mg tabletIndications :ASHD (arteriosclerotic heart disease),Paroxysm al atrial fibrillation (HC) Take 1 Tablet (5 mg) by mouth three times daily. 270 Tablet 12/12/19 24 024 Discontin ued(*Medi cation adjustmen t) warfarin (COUMADIN) 5 mg tabletIndications :LV (left ventricular) mural thrombus following NH (HC),Iliac artery thrombosis, right (HC),Anticoagulat ion monitoring, INR range 2-3 Take by mouth 12.5 mg (5 mg x 2.5) every Mon; 10 mg (5 mg x 2) all other days in the evening OR as directed. 190 Tablet 01/17/20 24 024 Discontin ued(Reord er (E-cancel not sent)) Active Problems Problem Noted Date Diagnosed Date Encounter for diagnostic col onoscopy due to change in bowel habits 10/25/2023 Fatty liver 10/13/2023 Pap smear for cervical cancer screening 07/21/19 Overview (07/21/2023): 07/2023 NIL/HPV negative. Plan: Pap/HPV due 07/2028. 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 [address] [place] [address] Jarrod Brown MD Follow Up (Follow-up ECHO and labs) 03/01/[address] [facility] [place] [address] [place] [address] [address] [facility] [place] [address] Jarrod Brown MD Health Maintenance Update 03/01/2024 Travel 02/26/2024 Travel 02/23/2024 3:15 PM RAIL SIGNAL DESIGNER Orders Only [facility] [address] [place] [address] Lab 02/23/2024 1:00 PM RAIL SIGNAL DESIGNER Telemedicine [facility] [address] [place], [place] [phone] Piper Art, [facility] Telehealth; Individual Therapy 02/23/2024 10:20 AM RAIL SIGNAL DESIGNER Telemedicine [facility] [address] [place] [address] Aure Torres NP Telehealth 02/22/2024 Travel 02/22/[address] [facility] [place] [address] [place] [phone] Zafar Allen MD Lab; Error-please disregard 02/22/[address] [facility] [address] [place] [phone] Jarrod Brown MD Questions (labs) 02/21/2024 10:00 AM RAIL SIGNAL DESIGNER Ancillary Procedure [facility] [address] [place] [address] 02/21/2024 9:30 AM RAIL SIGNAL DESIGNER Orders Only [address] [address] Lab, [place] Lab 02/21/2024 Anticoagulation (warfarin) [facility] [address] [place] [address] 1, [facility] Anticoagulation 02/21/2024 Travel 02/20/2024 Travel 02/18/2024 Travel 02/14/2024 Anticoagulation (warfarin) [facility] [address] [place] [address] 1, [facility] Anticoagulation (Acel[facility]) 01/31/2024 Anticoagulation (warfarin) [facility] [address] [place] [address] 1, [facility] Anticoagulation ([facility]) 01/23/2024 Refill [facility] [address] [place] [address] Sisi Day, DO Refill Request (Nicotine 14 mg/24 hr patch) 01/17/2024 Refill [facility] [address] [place] [address] Sisi Day, DO Refill Request (Warfarin) 01/17/2024 Anticoagulation (warfarin) [facility] [address] [place] [address] 1, [facility] Anticoagulation ([facility]celis) 01/11/2024 2:00 PM RAIL SIGNAL DESIGNER Telemedicine [facility] [address] [place] [address] Piper Art, [facility] Individual Therapy; Telehealth 01/11/2024 Travel 01/11/2024 Telephone [facility] [address] [place] [address] Sisi Day DO Anticoagulation (TARGET END DATE CONFIRMATION ) 01/10/2024 Anticoagulation (warfarin) [facility] [address] [place] [address] 1, [facility] Anticoagulation 01/04/2024 Telephone [facility] [address] [place] [address] Aure Torres NP Fax (Needing fax sent ) 01/03/2024 Anticoagulation (warfarin) [facility] [address] [place] [address] 1, [facility] Anticoagulation (Acelis) 01/03/2024 Telephone [facility] [address] [place] [address] Sisi Day DO Anticoagulation (Lab Orders/) 12/29/2023 8:15 AM CDT Telemedicine [facility] [address] [place] [address] Noemy Moreno MD Mental Health Intake; Medication Management (Patient has had med management by PCP, although Cymbalta was for pain not MH. Patient has seen therapist within [facility] system. Patient reports she doesn't feel like she is able to complete tasks or start important projects despite having the time and knowing they are relevant to work. States she is falling behind at work. Additionally health issues have caused her to fall into a depression, patient feels demoralized living a healthy lifestyle and not seeing gratification. ) 12/27/2023 4:30 PM CDT Office Visit [facility] [address] [place] [address] Marah Ruano MD Follow Up (Abdominal wound itchy and red) 12/27/2023 Anticoagulation (warfarin) [facility] [address] [place] [address] 1, [facility] Anticoagulation ([facility]is) 12/27/2023 Travel 12/22/2023 Telephone [facility] [address] [place] [address] Marah Ruano MD Concerns 12/22/2023 Telephone [facility] [address] [place] [phone] Aure Torres NP DME Supply 12/22/2023 Telephone [facility] [address] [place] [phone] Aure Torres, FILING CLERK Appointment Request 12/19/2023 10:00 AM CDT Telemedicine [facility] [address] [place] [address] Piper Art, [facility] Individual Therapy; Telehealth 12/13/2023 Anticoagulation (warfarin) [facility] [address] [place] [address] 1, [facility] Anticoagulation (Acelis) 12/08/2023 Refill [facility] [address] [place] [address] Sisi Day, Refill Request (Lisinopril 2.5mg, Midodrine Hydrochloride 5mg) 12/07/2023 Telephone [facility] [address] [place] [address] Aure Torres, [employer] DME Supply (Needs prescription for CPAP ) from Last 3 Months Immunizations Name Administration Dates Next Due Influenza, IIV4 12/30/2019 Influenza,CCIIV4 PRESERV FREE 01/15/2023, 022 Polio Virus, Unspecified 09/14/1977 Tdap 07/22/2015 Zoster (Shingrix-RZV, recombinant) 12/21/2021, Family History Medical History Relation Name Comments Coronary artery disease Father 4 ve ssel CABG Hyperlipidemia Father Depression Mother Hypertension Mother OCD Mother Cancer-breast No Family History Relation Name Status Comments Father Alive Mother Alive Sister Alive Social History Tobacco Use Types Packs/Day Years Used Date Smoking Tobacco: Former Cigarettes Smokeless Tobacco: Never Tobacco Cessation:Counseling Given: Yes Alcohol Use Standard Drinks/Week Comments Not Currently 3 (1 standard drink = 0.6 oz pur e alcohol) [facility] Utilities Answer Date Recorded Do you have trouble paying f or utilities (for example, heat, electricity, water, phone)? Yes 06/07/2023 PHQ-2 Answer Date Recorded PHQ-2 TOTAL SCORE 3 02/22/2024 Social Connections Answer Date Recorded Do you often feel lonely or isolated from those around you? 0 06/07/2023 Financial Resource Strain Answer Date R ecorded Difficulty of Paying Living Expenses 3 06/07/2023 Difficulty of Paying Living Expenses Not on file 06/07/2023 Food Insecurity Answer Date Recorded Do you worry your food will run out before you are able to buy more? 1 06/07/2023 Transportation Needs Answer Date Record ed Does lack of transportation keep you from medica l appointments? 1 06/07/2023 Does lack of transportation keep you from work, meetings or getting things that you need? 1 06/07/2023 Housing Stability Answer Date Recorded What is your housing situation today? 1 06/07/2023 Interpersonal Safety Answer Date Record ed Are you being hit, kicked, p ushed or yelled at (see row info)? No 06/07/2023 Interpersonal Safety Abuse 12 - 18 Not on file 06/07/2023 Interpersonal Safety Ambulatory Vulnerability No t on file 06/07/2023 Comments No Sex and Gender Information Value Date Recorded Sex Assigned at Not on file Legal Sex Female 7:21 PM CDT Gender Identity Not on file Sexual Orientation Not on file Travel History Travel Start Travel End [place] 02/03/2024 02/11/2024 Obstetrics History Last Filed Vital Signs Vital Sign Reading Time Taken Comments Blood Pressure 120/79 03/01/2024 2:58 PM RAIL SIGNAL DESIGNER Pulse 73 03/01/2024 2:58 PM RAIL SIGNAL DESIGNER Temperature 35.9 C (96.7 F) 11/10/2023 3:19 PM CDT Respiratory Rate 16 11/10/2023 5:54 PM CDT Oxygen Saturation 98% 03/01/2024 2: 58 PM RAIL SIGNAL DESIGNER Inhaled Oxygen Concentration - - Weight 105.6 kg (232 lb 11.2 oz) 03/01/2024 2:58 PM RAIL SIGNAL DESIGNER Height 157.5 cm (5' 2) 10/24/2023 3:15 PM CDT Body Mass Index 42.56 10/24/2023 3:15 PM CDT Plan of Treatment Upcoming Encounters Date Type Department Care Team (Late st Contact Info) Description 04/03/2024 7:15 AM RAIL SIGNAL DESIGNER Telemedicine [facility] [address] [place] [address] [place] [address] [place], [place] [phone] Health Maintenance Due Date Last Done Comments Pneumococcal series for age 50+ (1 of 2 - PCV) 08/16/1990 Influenza for age 50-64 11/05/2023 01/16/20 23, 01/08/2022, 12/30/2019 Colonoscopy through age 75 04/25/2024 10/24/2023 Mammogram for age 45-75 07/10/2024 07/11/2023 BMI (ht and wt on same day) for age 18+ 09/28/2024 09/29/2023, 07/07/2023, 05/11/2023, Additional history exists Depression screening for age 12+ 02/22/2025 02/23/2024, 02/23/2024, 02/23/2024, Additional history exists Tetanus booster 07/21/2025 07/22/2015 Pap test for age 21-65 07/06/2028 , 07/07/2023, 03/03/2016 Lipids for age 45-75 02/22/2029 02/23/2024, 05/24/2023, 03/03/2016 Tdap Completed 07/22/2015 Zoster (shingles) series for age 50+ Completed 12/21/2021, 07/24/2021 HIV for age 15-65 Completed 07/07/2023 Hepatitis C screening for ag e 18-79 Completed 07/07/2023 COVID-19 vaccine series Completed 12/15/19 24, 01/15/2023, 12/21/2021, Additional history exists Procedures Procedure Name Priority Date/Time Associated Diagnosis Comments BASIC METABOLIC PANEL Routine 02/23/2024 3:16 PM RAIL SIGNAL DESIGNER ASHD (arteriosclerotic heart disease) Mixed hyperlipidemia LIPID PANEL W REFLEX MEASURED LDL Routine 02/23/2024 3:16 PM RAIL SIGNAL DESIGNER Mixed hyperlipidemia ECHO TTE COMPLETE W CONTRAST Routine 02/21/2024 10:38 AM RAIL SIGNAL DESIGNER LV (left ventricular) mural thrombus following NH (HC) ASHD (arteriosclerotic heart disease) HFrEF (heart failure with reduced ejection fraction) (HC) INR,POCT Routine 02/21/2024 9:29 AM RAIL SIGNAL DESIGNER LV (left ventricular) mural thrombus following NH (HC) Iliac artery thrombosis, right (HC) Anticoagulation monitoring, INR range 2-3 HOME MONITOR AC Routine 02/14/2024 12:00 AM RAIL SIGNAL DESIGNER HOME MONITOR AC Routine 01/31/2024 12:00 AM RAIL SIGNAL DESIGNER HOME MONITOR AC Routine 01/17/2024 12:00 AM RAIL SIGNAL DESIGNER HOME MONITOR AC Routine 01/10/2024 12:00 AM RAIL SIGNAL DESIGNER HOME MONITOR AC Routine 01/03/2024 12:00 AM CDT HOME MONITOR AC Routine 12/27/2023 12:00 AM CDT HOME MONITOR AC Routine 12/13/2023 12:00 AM CDT COLONOSCOPY 10/24/2023 3:18 PM CDT XR MAMMO LUIS MANUEL BILAT SCREEN Routine 07/11/2023 5:00 PM CDT Routine adult health maintenance ANTI HIV 1/2 Routine 07/07/2023 11:44 AM CDT Screening for HIV (human immunodeficiency virus) ANTI HCV Routine 07/07/2023 11:44 AM CDT Need for hepatitis C screening test HPV HIGH RISK Routine 07/07/2023 11:20 AM CDT Screening for malignant neoplasm of cervix from Last 3 Months or Most Recently Relevant to Health Maintenance Results * (ABNORMAL) LIPID PANEL W REFLEX MEASURED LDL (02/23/2024 3:16 PM RAIL SIGNAL DESIGNER) CHOLESTEROL, TOTAL 193 <200 mg/dL [facility] HDL CHOLESTEROL 62 > OR = 50 mg/dL [facility] TRIGLYCERIDES 140 <150 mg/dL [facility] LDL-CHOLESTEROL 106(H) mg/dL (calc) [facility] Comment: Reference range: <100 Desirable range <100 mg/dL for primary prevention; <70 mg/dL for patients with CHD or diabetic patients with > or = 2 CHD risk factors. LDL-C is now calculated using the Mainor-Dinh calculation, which is a validated novel method providing better accuracy than the Friedewald equation in the estimation of LDL-C. Mainor SS et al. JEAN PIERRE. 2013;310(19): 9619-4768 (http://education.Spool.Phone.com/faq/CUE566) CHOL/HDLC RATIO 3.1 <5.0 (calc) [facility] NON HDL CHOLESTEROL 131(H) <130 mg/dL (calc) [facility] Comment: For patients with diabetes plus 1 major ASCVD risk factor, treating to a non-HDL-C goal of <100 mg/dL (LDL-C of <70 mg/dL) is considered a therapeutic option. Blood BLOOD SPECIMEN / Unknown 02/23/2024 3:16 PM RAIL SIGNAL DESIGNER 02/23/2024 3:16 PM RAIL SIGNAL DESIGNER Narrative [facility] - 02/24/2024 4:08 AM RAIL SIGNAL DESIGNER FASTING:NO FASTING: NO us Zafar Allen MD CHEMISTRY Final Resu lt Apliiq [facility] [address] [place] [address], [place] [phone] [facility] [address] [facility] [place] [address] * BASIC METABOLIC PANEL (02/23/2024 3:16 PM RAIL SIGNAL DESIGNER) GLUCOSE 90 65 - 139 mg/dL [facility] Comment: Non-fasting reference interval UREA NITROGEN (BUN) 15 7 - 25 mg/dL [facility] CREATININE 0.76 0.50 - 1.03 mg/dL [facility] EGFR 94 > OR = 60 mL/min/1. 73m2 [facility] BUN/CREATININE RATIO SEE NOTE: 6 - 22 (calc) [facility] Comment: Not Reported: BUN and Creatinine are within reference range. SODIUM 137 135 - 146 mmol/L [facility] POTASSIUM 4.7 3.5 - 5.3 mmol/L [facility] CHLORIDE 98 98 - 110 mmol/L [facility] CARBON DIOXIDE 31 20 - 32 mmol/L [facility] ELECTROLYTE BALANCE 8 7 - 17 mmol/L (calc) [facility] CALCIUM 9.8 8.6 - 10.4 mg/dL [facility] Blood BLOOD SPECIMEN / Unknown 02/23/2024 3:16 PM RAIL SIGNAL DESIGNER 02/23/2024 3:16 PM RAIL SIGNAL DESIGNER Narrative [facility] - 02/24/2024 4:08 AM RAIL SIGNAL DESIGNER FASTING:NO FASTING: NO Zafar Allen MD CHEMISTRY Final Resu lt Apliiq [facility] [address] [place] [address], [place] [phone] [facility] [address] [facility] [place] [address] * ECHO TTE COMPLETE W CONTRAST (02/21/2024 10:38 AM RAIL SIGNAL DESIGNER) AORTIC VALVE MEAN PG 4 mmHg EJECTION FRACTION 55 % LVEDD 4.6 cm EJECTION FRACTION 45 - 50% Anatomical Region Laterality Modality Ultrasound 02/21/2024 9:54 AM RAIL SIGNAL DESIGNER Narrative 02/21/2024 11:03 AM RAIL SIGNAL DESIGNER ECHOCARDIOGRAM HOLLY SALEEM : 1970 53 years Study Date: 02/21/2024 9:54:54 AM Gender: F BP: 105/52 mmHg Height: 157.00 cm BSA: 1.99 m Weight: 100.00 kg Tech: LONA Referring MD: ZAFAR ALLEN Site: [facility] Reading Location: MOBILE-OP Patient Location: Outpatient. Procedure: 2D w/ Contrast, Color Doppler and Spectral Doppler. Indication for study: LV (left ventricular) mural thrombus following NH; ASHD (arteriosclerotic heart disease); HFrEF (heart failure with reduced ejection fraction) Cardiac Rhythm: Regular.Study quality: Fair. Final Impressions: 1. LVEF 45-50%. Normal LV size. 2. Apical akinesis with layered thrombus [see contrast image # 76 and 77]. Patient is already on Warfarin. 3. Preserved RV function. 4. No significant valvular disease. 5. Normal RAP estimates. Chamber Sizes and Function Left atrial size is normal. Left atrial pressure is normal. Right ventricular cavity size is normal, global systolic RV function is normal. The right atrium is normal. Right atrial area is 13 cm . The pulmonary artery is not well visualized. The sinus of Valsalva is normal sized. The ascending aorta is normal sized. Valves, RV Pressures and Diastolic Function The aortic valve is normal in structure and trileaflet, no stenosis and no regurgitation. The mitral valve is normal in structure, trace mitral regurgitation. Normal diastolic function. The tricuspid valve is normal in structure. Tricuspid regurgitation is trace regurgitation. Unable to assess right ventricular systolic pressure. The pulmonic valve is not well visualized. Trace pulmonary regurgitation. Masses, Effusion, Shunts There is no pericardial effusion. The inferior vena cava is normal sized, respiratory size variation greater than 50%. No left to right shunting was detected by limited color flow Doppler interrogation of the interatrial septum. MEASUREMENTS AND CALCULATIONS 2-D Measurements and LV Function: LVID (d) 4.6 cm LV FS% (2D) 36 % LVID (s) 2.9 cm LVOT diameter 1.8 cm IVS (d) 1.2 cm HR 62 bpm LVPW (d) 1.1 cm LA Vol index 23 ml/m2 Ao Sinus 2.8 cm RA area 13 cm Asc Ao 2.9 cm LA 4.0 cm Diastology: Mitral Tissue Doppler Pulmonary veins E Peak 0.9 m/s e', Septum 0.09 m/s Pulm s 42.8 cm/s A Peak 0.7 m/s e', Lateral 0.10 m/s Pulm d 40.2 cm/s E/A 1.4 E/e' Average 9.74 Pulm s/d ratio 1.06 DT 213 msec Aortic Valve: Vmax 1.4 m/s EDUARDO (V) 2.14 cm VTI 0.30 m EDUARDO (I) 2.20 cm LVOT V max 1.2 m/s Max PG 8 mmHg LVOT VTI 0.26 m Mean PG 4 mmHg SV 67 ml Dim Index 0.87 SV index 34 ml/m CO 4.1 l/min CI 2.1 l/min/m Mitral Valve: MVA 3.6 cm MV P 1/2 62 msec Tricuspid Valve and estimated PA pressures: TAPSE 2.3 cm Contrast documentation: 3.5 ml diluted Definity, lot #[id number], [facility]# [id number] was administered peripherally to enhance visualization of all left ventricular segments. . This study was interpreted by an [facility] accredited facility. Final Procedure Note Osmani Cyr MD - 02/21/2024 ECHOCARDIOGRAM HOLLY SALEEM : 1970 53 years Study Date: 02/21/2024 9:54:54 AM Gender: F BP: 105/52 mmHg Height: 157.00 cm BSA: 1.99 m Weight: 100.00 kg Tech: LONA Referring MD: ZAFAR ALLEN Site: [facility] Reading Location: MOBILE-OP Patient Location: Outpatient. Procedure: 2D w/ Contrast, Color Doppler and Spectral Doppler. Indication for study: LV (left ventricular) mural thrombus following NH;ASHD (arteriosclerotic heart disease); HFrEF (heart failure with reducedejection fraction) Cardiac Rhythm: Regular.Study quality: Fair. Final Impressions: 1. LVEF 45-50%. Normal LV size. 2. Apical akinesis with layered thrombus [see contrast image # 76 and77]. Patient is already on Warfarin. 3. Preserved RV function. 4. No significant valvular disease. 5. Normal RAP estimates. Chamber Sizes and Function Left atrial size is normal. Left atrial pressure is normal. Rightventricular cavity size is normal, global systolic RV function is normal.The right atrium is normal. Right atrial area is 13 cm . The pulmonaryartery is not well visualized. The sinus of Valsalva is normal sized. Theascending aorta is normal sized. Valves, RV Pressures and Diastolic Function The aortic valve is normal in structure and trileaflet, no stenosis and noregurgitation. The mitral valve is normal in structure, trace mitralregurgitation. Normal diastolic function. The tricuspid valve is normal instructure. Tricuspid regurgitation is trace regurgitation. Unable toassess right ventricular systolic pressure. The pulmonic valve is not wellvisualized. Trace pulmonary regurgitation. Masses, Effusion, Shunts There is no pericardial effusion. The inferior vena cava is normal sized,respiratory size variation greater than 50%. No left to right shunting wasdetected by limited color flow Doppler interrogation of the interatrialseptum. MEASUREMENTS AND CALCULATIONS 2-D Measurements and LV Function: LVID (d) 4.6 cm LV FS% (2D) 36 % LVID (s) 2.9 cm LVOT diameter 1.8 cm IVS (d) 1.2 cm HR 62 bpm LVPW (d) 1.1 cm LA Vol index 23 ml/m2 Ao Sinus 2.8 cm RA area 13 cm Asc Ao 2.9 cm LA 4.0 cm Diastology: Mitral Tissue Doppler Pulmonary veins E Peak 0.9 m/s e', Septum 0.09 m/s Pulm s 42.8 cm/s A Peak 0.7 m/s e', Lateral 0.10 m/s Pulm d 40.2 cm/s E/A 1.4 E/e' Average 9.74 Pulm s/d ratio 1.06 DT 213 msec Aortic Valve: Vmax 1.4 m/s EDUARDO (V) 2.14 cm VTI 0.30 m EDUARDO (I) 2.20 cm LVOT V max 1.2 m/s Max PG 8 mmHg LVOT VTI 0.26 m Mean PG 4 mmHg SV 67 ml Dim Index 0.87 SV index 34 ml/m CO 4.1 l/min CI 2.1 l/min/m Mitral Valve: MVA 3.6 cm MV P 1/2 62 msec Tricuspid Valve and estimated PA pressures: TAPSE 2.3 cm Contrast documentation: 3.5 ml diluted Definity, lot #[id number], [facility]#[id number] was administered peripherally to enhance visualization of allleft ventricular segments. . This study was interpreted by an [facility] accredited facility. Final Zafar Allen MD ECHO ORD Final Resu lt * (ABNORMAL) INR - POCT [34125.2] - Standing Order (02/21/2024 9:29 AM RAIL SIGNAL DESIGNER) INR 2.4(H) ratio [facility] Comment: INRs >2.9 may be falsely elevated in patients receiving either unfractionated Heparin or Low Molecular Weight Heparin. Follow up testing in a hospital laboratory may be helpful if clinically indicated. INR results of > or = 5.0 should be verified using the standard venipuncture procedure. Reference Range 0.9-1.1 Moderate-intensity Warfarin Therapy 2.0-3.0 Higher-intensity Warfarin Therapy 3.0-4.0 PROTHROMBIN TIMEP 29.3(H) 10.5 - 13.1 sec [facility] Comment: Point of care fingerstick Prothrombin Time/INR results may vary from venous Prothrombin Time/INR methodologies. Any results exhibiting inconsistency with the patient's clinical status should be repeated using a venous Prothrombin Time/INR method. Blood BLOOD SPECIMEN / Unknown 02/21/2024 9:29 AM RAIL SIGNAL DESIGNER 02/21/2024 9:29 AM RAIL SIGNAL DESIGNER Sisi Garcia Shay DO LABORATORY Final Resu lt [facility] [address] [place] [address], [place] [phone] [facility] [address] [place] [id number] * (ABNORMAL) HOME MONITOR AC (02/14/2024 12:00 AM RAIL SIGNAL DESIGNER) Only the most recent of7 resultswithin the time period is included. PATIENT REPORTED HOME INR 3.2(H) 2.00 - 3.00 [facility] 02/14/2024 Sisi Radha Day DO OTHER Final Resu lt [facility] [address] [place] [address] * COLONOSCOPY (10/24/2023 3:18 PM CDT) 10/24/2023 3:18 PM CDT Narrative Transcriptions Sarah Kapoor DO - 10/24/2023 4:07 PM CDT Patient Name: Holly Saleem Procedure Date: 10/24/2023 Gender: Female Date of : 1970 Admit Type: Ambulatory Procedure: Colonoscopy Proceduralist: Sarah Kapoor MD Referring MD: Sisi Day Indications/Pre-Op Diagnosis: Screening for colorectal malignant neoplasmdue to positive Cologuard test Medications: Propofol per Anesthesia, MonitoredAnesthesia Care Procedure Description: The patient had risks, benefits and alternatives explained to andgave informed consent. The patient had a stable cardiopulmonary status and judged an adequate candidate for conscious sedation. The endoscope [id number] was passed through the anus andadvanced to the ileocolonic anastomosis. The colonoscopy was performed without difficulty. The patient tolerated the procedure well. The quality ofthe bowel preparation was good. The rectum and ileocolonic anastomosiswere photographed. Complications: No immediate complications. Estimated Blood Loss & Specimen: Estimated blood loss: none. Specimen collected - None Findings: The perianal and digital rectal examinations were normal. Pertinent negatives include normal sphincter tone, no palpable rectal lesionsand normal stool Hemoccult. There was evidence of a prior functional end-to-end ileo-colonic anastomosis in the ascending colon. This was patent and was characterized by healthy appearing mucosa. The anastomosis wastraversed. The exam was otherwise without abnormality on direct and retroflexion views. Impressions/Post-Op Diagnosis: - Patent functional end-to-end ileo-colonic anastomosis,characterized by healthy appearing mucosa. - The examination was otherwise normal on direct and retroflexionviews. - No specimens collected. Recommendation: - Patient has a contact number available for emergencies. The signsand symptoms of potential delayed complications were discussed with the patient. Return to normal activities tomorrow. Written discharge instructions were provided to the patient. - Discharge patient to home (ambulatory). - Resume previous diet. - Continue present medications. - Repeat colonoscopy in 10 years for screening purposes. Sarah Kapoor MD 10/24/2023 4:07:45 PM This report has been signed electronically. Note Initiated On: 10/24/2023 3:18 PM us Sarah Kapoor DO PROCEDURE ORD Final Res ult * XR MAMMO LUIS MANUEL BILAT SCREEN (07/11/2023 5:00 PM CDT) Anatomical Region Laterality Modality BREASTS, Breast Left, Breast Right Bilateral Mammography Impressions 07/13/2023 2:43 PM CDT There is no radiographic evidence for malignancy. Recommend annual mammograms. MAMMOGRAM ASSESSMENT: ACR 1 Negative PATIENTS: You will also receive a letter with your examination results in an easy to read format. If you have questions about your results, please contact your referring provider. Narrative 07/13/2023 2:43 PM CDT For Patients: As a result of the Century Cures Act, medical imaging exams and procedure reports are released immediately into your electronic medical record. You may view this report before your referring provider. If you have questions, please contact your health care provider. XR MAMMO LUIS MANUEL BILAT SCREEN [[id number]] CLINICAL HISTORY: This is an asymptomatic 52 y.o. patient. INDICATION FOR EXAM: Mammogram Screening. TECHNIQUE: CC & MLO views were obtained. This study was evaluated with the assistance of Computer-Aided Detection. Breast Tomosynthesis was used in interpretation. COMPARISON FILM: This is a baseline study. FINDINGS: The breasts are heterogeneously dense, which may obscure small masses. There are no dominant masses, suspicious micro calcifications or areas of architectural distortion. us Sisi Day DO MAMMO Final Resu lt * ANTI HCV (07/07/2023 11:44 AM CDT) HEPATITIS C ANTIBODY Non-Reacti ve Non-React jerome 07/07/2023 10:13 PM CDT [facility] Comment:Please note, per www .CDC.gov: If a patient is known to be at high risk of HCV infection, or is symptomatic, and the physician's suspicion of HCV infection is high, HCV RNA testing is often employed and is of diagnostic value, even after an initial negative anti-HCV test result. Blood BLOOD SPECIMEN / Unknown Venipuncture / Unknown 07/07/2023 11:44 AM CDT 07/07/2023 11:46 AM CDT Sisi Day DO SEND OUTS Final Resu lt Performing Organization Address [facility]/ZIP Co de Phone Number [facility] [address] [place] [address], * ANTI HIV 1/2 [[id number]] (07/07/2023 11:44 AM CDT) HIV-1/HIV-2 SCREEN Non-Reacti ve Non-Reacti ve 07/07/2023 10:14 PM CDT [facility] Comment:HIV-1 p24 and HIV-1/ HIV-2 Ab Not Detected. Blood BLOOD SPECIMEN / Unknown Venipuncture / Unknown 07/07/2023 11:44 AM CDT 07/07/2023 11:46 AM CDT Sisi Day DO SEND OUTS Final Resu lt Performing Organization Address [facility] de Phone Number [facility] [address] [place] [address], [place] * HPV HIGH RISK (07/07/2023 11:20 AM CDT) TYPE 16 Negative Negative 07/12/2023 2:02 PM CDT [facility] TYPE 18 Negative Negative 07/12/2023 2:02 PM CDT [facility] OTHER HIGH RISK TYPES Negative Negative 07/12/2023 2:02 PM CDT [facility] Other (Cervical) Non-Blood / Unknown 07/07/2023 11:20 AM CDT 07/10/2023 12:31 PM CDT Narrative [facility] - 07/12/2023 2:02 PM CDT HPV types 16, 18, 31, 33, 35, 39, 45, 51, 52, 56, 58, 59, 66 and 68 DNA were undetectable or below the pre-set threshold. Methodology: [employer] 4800 HPV Test Sisi Radha Shay DO MICROBIOLOGY Final Resu lt [facility] 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
[2024-03-06 15:41] VITALS: BP 124/74; PULSE 84; RESP 18; TEMP 36.4; O2SAT 100; BMI 41.3
[2024-03-06] MEDS: KETOROLAC 15 MG/ML inj IM (16:18)
--- NOTE | 2024-03-06 16:18 | ED_ITS ---
HPI - Back Pain/Injury General Date Seen: 03/06/24 Chief Complaint: Back Injury/Pain Stated Complaint: Back going out Time Seen by Provider: 03/06/24 15:39 Source: patient Mode of arrival: ambulatory Limitations: no limitations History of Present Illness HPI Narrative: Patient is a 53-year-old female who presents here for evaluation of low back pain, she was at a local store here in [place] when reached up and twisted, felt pain in her back. So bad that she has she collapsed onto the floor but was able to get up. They did ask her if she wanted ambulance but she thought she could just drive herself here which she did. She denies any numbness or tingling or weakness in the legs is been no bowel or bladder issues she is tells me she does have a history of chronic back pain. She has done PT in the past. It least once before she has got an injection of steroid into her spine. Although when I talked to her she has said she had this done in the clinic, not on the radiology so I think it was likely just an IM dosage. She says the thing that helps best for her back pain when she gets to this Toradol. 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 No history of any gastric issues. MD elicited complaint: back injury Pertinent past history: prior back pain Onset (ago): minute(s) Timing: improved Location: lumbar spine Radiation: none Exacerbating factors: movement Relieving factors: sitting upright Context: turning/twisting Associated symptoms: denies other symptoms Work related injury: No Related Data Home Medications ?Medication ?Instructions ?Recorded ?Confirmed hydrocodone 5 mg-acetaminophen 325 1 tab PO Q6H PRN pain 05/21/23 05/21/23 mg tablet atorvastatin 40 mg tablet 40 mg PO DAILY 03/06/24 03/06/24 clopidogrel 75 mg tablet 75 mg PO DAILY 03/06/24 03/06/24 duloxetine 30 mg capsule,delayed mg PO 03/06/24 release duloxetine 60 mg capsule,delayed 60 mg PO DAILY 03/06/24 03/06/24 release ezetimibe 10 mg tablet 10 mg PO DAILY 03/06/24 03/06/24 lisinopril 2.5 mg tablet 2.5 mg PO DAILY 03/06/24 03/06/24 metoprolol succinate 25 mg capsule 25 mg PO DAILY 03/06/24 03/06/24 sprinkle, ext. release 24 hr (Kapspargo Sprinkle) nicotine 14 mg/24 hr daily 1 patch topical DAILY 03/06/24 03/06/24 transdermal patch pantoprazole 40 mg tablet,delayed 40 mg PO DAILY 03/06/24 03/06/24 release warfarin 5 mg tablet mg PO 03/06/24 Allergies Allergy/AdvReac Type Severity Reaction Status Date / Time venom-wasp Allergy Mild Rash Verified 03/06/24 15:46 Review of Systems Status of ROS: Reports: 10 or more systems reviewed and unremarkable except as noted in History and below [facility] Medical History Acute appendicitis ?K35.80 - Unspecified acute appendicitis (ICD-10) Morbid obesity with BMI of 40.0-44.9, adult ?E66.01 - Morbid (severe) obesity due to excess calories (ICD-10) ?Z68.41 - Body mass index [BMI] 40.0-44.9, adult (ICD-10) Recurrent low back pain ?M54.50 - Low back pain, unspecified (ICD-10) Acute back pain ?M54.9 - Dorsalgia, unspecified (ICD-10) Surgical History S/P right hemicolectomy ?Z90.49 - Acquired absence of other specified parts of digestive tract (ICD- 10) S/P tonsillectomy ?Z90.89 - Acquired absence of other organs (ICD-10) Social History Narrative: Admits to smoking and drinking alcohol at least twice a week. 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 What is your current living situation?: I presently have a place to live Problems where you live: no known problems Problems where you live details: N/A In the past 12 months, utilities in danger of being shut off: no In past 12 months, lack of transportation kept you from medical appts, meetings, work, or getting things needed for daily living: no In the past 12 mos, have been you worried that your food would run out before you had money to buy more?: never true In the past 12 mos, the food you bought just didn't last and you didn't have money to buy more?: never true Highest level of school completed/degree received: Bachelor's degree Smoking Status: Current every day smoker What tobacco products do you use: cigarettes Years smoked: 30 Smoking quit date/years: >15 years ago Second hand tobacco smoke exposure: No How often do you have a drink containing alcohol: never How often do you have six or more drinks on one occasion: Never AUDIT-C Alcohol total score: 0 Non-prescribed substance use: denies use Caffeine: Yes (2-3 coffees daily) How often does anyone, including family, friends and others, physically hurt you : never How often does anyone, including family, friends and others, insult or talk down to you: never How often does anyone, including family, friends and others, threaten you with harm: never How often does anyone, including family, friends and others, scream or curse at you: never service: No Exam Narrative: Exam Narrative: On examination she is seen in room 1 she is in no apparent distress, she is able to stand slowly, forward flexion is approximately 20? backward extension full and side flexion is 10?, no palpable tenderness noted on her back on palpation percussion, she localizes pain over her posterior iliac crest bilaterally, sensation is normal normal through her perianal region(nurse is present during examination) sensations normal or legs bilaterally EHLs, great toe flexors, knee flexors 10 sirs and hip flexors are graded 5/5 power bilaterally, 0/4 patellar and ankle jerks are noted. Pulses are normal in her lower extremities Const: Vital Signs, click to edit/add: Vital Signs - 24 hr 03/06/24 15:41 Temperature 97.5 F L Pulse Rate [Right Pulse Oximeter] 84 Respiratory Rate 18 Blood Pressure [Ri ght Upper Arm] 124/74 Pulse Oximetry 100 Oxygen Delivery Me thod Room Air Course Vital Signs Vital signs: Initial Vital Signs Temperature 97.5 F L 03/06/24 15:41 Temperature Source Temporal Artery Scan 03/06/24 15:41 Pulse Rate 84 03/06/24 15:41 Pulse Rhythm Regular 03/06/24 15:41 Respiratory Rate 18 03/06/24 15:41 Blood Pressure 124/74 03/06/24 15:41 Blood Pressure Mean 90 03/06/24 15:41 Blood Pressure Position Sitting 03/06/24 15:41 Pulse Oximetry 100 03/06/24 15:41 Oxygen Delivery Method Room Air 03/06/24 15:41 Vital Signs Temperature 97.5 F L 03/06/24 15:41 Pulse Rate 84 03/06/24 15:41 Respiratory Rate 18 03/06/24 15:41 Blood Pressure 124/74 03/06/24 15:41 Pulse Oximetry 100 03/06/24 15:41 Oxygen Delivery Method Room Air 03/06/24 15:41 Temperature 97.5 F L 03/06/24 15:41 Pulse Rate 84 03/06/24 15:41 Respiratory Rate 18 03/06/24 15:41 Blood Pressure 124/74 03/06/24 15:41 Pulse Oximetry 100 03/06/24 15:41 Oxygen Delivery Method Room Air 03/06/24 15:41 MDM - Back Pain/Injury MDM Narrative Medical decision making narrative: Life-threatening differential diagnosis considered include: Cauda equina an epidural abscess, other differential diagnosis considered includes sprain, contusion, nerve root entrapment, radiculopathy, muscle spasm, urolithiasis, lumbar fracture, pyelonephritis, appendicitis, biliary colic, as well as other etiologies. The patient denies saddle anesthesia bowel or bladder incontinence or lower extremity weakness, recent weight loss, or history of malignancy. She has lobbying for a Toradol injection although there is a contraindication with her blood thinners associated with this. This can cause worsening thrombosis, and also GI issues. After discussion with her risks benefits of this, 1 time dose of Toradol 15 mg IM will be given to her. No further in NSAIDs are loud, given her history. I do recommend that she uses Tylenol, prednisone 20 mg p.o. b.i.d. for 5 days, and also Flexeril 10 mg tablet 1/2-1 tablet p.o. b.i.d. PRN. Recommend follow-up with primary care in the next 5-7 days, return here signs symptoms of worsening which we went over. He denies is also helpful. Given what I see here today I do not think emergent imaging is needed. Differential Diagnosis Differential diagnosis: Likely lumbar radiculopathy, sciatica, strain of lumbar region, renal colic, pyelonephritis, thoracic back pain, AAA and discitis Medical Records Attestation: I reviewed the patient's medical records. Discharge Plan Discharge Clinical Impression: Acute back pain Patient Disposition: Home, Self-Care Condition: Stable Instructions: Acute Low Back Pain (ED), Heat Pack Application (ED) Additional Instructions: Home, rest, use of Tylenol with the prednisone and occasional use of Flexeril. I can give you only a small 1 time dose of Toradol, given your history of using warfarin, recommend follow-up with primary care if ongoing signs symptoms, this seems like uncomplicated low back pain presently. Red flag symptoms would be increasing pain, numbness tingling, or weakness in the lower extremities or bowel or bladder incontinence Activity Level: Light activity Prescriptions: No Action hydrocodone-acetaminophen 5-325 mg tablet 1 tab PO Q6H PRN (Reason: pain) nicotine 14 mg/24 hr patch 24 hour 1 patch topical DAILY warfarin 5 mg tablet PO ezetimibe 10 mg tablet 10 mg PO DAILY duloxetine 30 mg capsule,delayed release(DR/EC) PO duloxetine 60 mg capsule,delayed release(DR/EC) 60 mg PO DAILY lisinopril 2.5 mg tablet 2.5 mg PO DAILY pantoprazole 40 mg tablet,delayed release (DR/EC) 40 mg PO DAILY atorvastatin 40 mg tablet 40 mg PO DAILY Kapspargo Sprinkle 25 mg capsule,sprinkle,ER 24hr 25 mg PO DAILY clopidogrel 75 mg tablet 75 mg PO DAILY Follow Up/Referrals: Provider,Not a Local [Primary Care Provider] - Stand Alone Forms: [employer] Info Instructions
--- OUTSIDE RECORDS SUMMARY | 2024-03-06 16:38 | XMS_ITS | Continuity of Care Document ---
Author Name NwHIN User [id number]-a llowed Address Unknown Organization Unknown Address Unknown Procedures FILTER APPLIED:Only known Procedures with Onset Date within the last 5 years Procedure Date Procedure Provider Additiona l Information Status HC MNT INDIV INITIAL EA 15MIN (32375) Completed TTE W/DOPPLER COMPLETE (31488) Completed ASSAY OF MAGNESIUM (02161) Completed X-RAY EXAM CHEST 2 VIEWS (87243) Completed ASSAY THYROID STIM HORMONE (95333) Completed ASSAY OF TROPONIN QUANT (16212) Completed SMEAR GRAM STAIN (89784) Completed CULTURE OTHR SPECIMN AEROBIC (54322) Completed COMPLETE CBC W/AUTO DIFF WBC (64350) Completed MICROBE SUSCEPTIBLE SANDOVAL (60957) Completed ASSAY OF LACTIC ACID (66304) Completed CT ABD PELV W/CONTRAST (25108) Completed EMERGENCY DEPT VISIT MOD MDM (47264) Completed BLOOD CULTURE FOR BACTERIA (77803) Completed ROUTINE VENIPUNCTURE (24986) Completed METABOLIC PANEL TOTAL CA (67871) Completed CT ANGIO ABD PELV W/O W/DYE (48527) Completed MEASURE BLOOD OXYGEN LEVEL (12938) Completed C-REACTIVE PROTEIN (60763) Completed ASSAY OF LIPASE (44765) Completed HEPATIC FUNCTION PANEL (18854) Completed BLOOD GASES ANY COMBINATION (63435) Completed X-RAY EXAM CHEST 1 VIEW (74479) Completed ASSAY OF TROPONIN QUANT (54782) Completed CT ANGIOGRAPHY CHEST (78414) Completed ASSAY OF PHOSPHORUS (19920) Completed ASSAY OF MAGNESIUM (28315) Completed ASSAY OF NATRIURETIC PEPTIDE (46699) Completed ELECTROCARDIOGRAM TRACING (23825) Completed HEMOGLOBIN (12043) Compl eted TAP BLOCK BI INJECTION (73454) Completed EMERGENCY DEPT VISIT HI MDM (20867) Completed ECHO GUIDE FOR BIOPSY (77197) Completed ASSAY OF LACTIC ACID (38353) Completed EMERGENCY DEPT VISIT MOD MDM (92190) Completed ANESTH SURG LOWER ABDOMEN (58399) Completed MEASURE BLOOD OXYGEN LEVEL (72847) Completed URINE CULTURE/COLONY COUNT (09685) Completed C-REACTIVE PROTEIN (17054) Completed COMPLETE CBC W/AUTO DIFF WBC (68989) Completed ASSAY OF LIPASE (41898) Completed URINE TEST (24636) Completed URINALYSIS AUTO W/SCOPE (30815) Completed HEPATIC FUNCTION PANEL (32054) Completed METABOLIC PANEL TOTAL CA (14704) Completed CT ABD PELV W/CONTRAST (80022) Completed TISSUE EXAM BY PATHOLOGIST (21541) Completed ROUTINE VENIPUNCTURE (83591) Completed Encounters FILTER APPLIED:Only known Encounters with Admission Date within the last 5 years Encounter Location Admission Discharge Billing Code Gastroenterology Technician Attender Inpatient [id number] Zandra Peña Inpatient [id number] Lavell Alva Outpatient Stacie euceda Outpatient [facility] PRASHANTH MELENDEZ Unknown [id number] CHELSIE TYLER Outpatient [id number] 70.449 HANSEL MALDONADO
--- OUTSIDE RECORDS SUMMARY | 2024-03-06 16:39 | XMS_ITS | Clinical Summary ---
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 Role Phone [facility] Un[facility] Sisi Day DO Primary Care Provider [phone] Aure Torres COATER [employer] PAPER Unavailable [phone] Allergies Active Allergy Reactions Criticality Noted Date [...] tabletIndications :LV (left ventricular) mural thrombus following MD (HC),Iliac artery thrombosis, right (HC),Anticoagulat ion monitoring, [...] tabletIndications :LV (left ventricular) mural thrombus following MD (HC),Iliac artery thrombosis, right (HC),Anticoagulat ion monitoring, [...] Department Care Team Description 03/01/2024 3:00 PM NUTRITION DIRECTOR Office Visit [facility] [address] [place] [address] Jarrod Brown MD Follow Up (Follow-up ECHO and labs) 03/01/2024 Telephone [facility] - Section [address] [place] [address] [address] [place] [address] Jarrod Brown MD Health Maintenance Update 03/01/2024 Travel 02/26/2024 Travel 02/23/2024 3:15 PM NUTRITION DIRECTOR Orders Only [facility] [address] [place] [address] Lab 02/23/2024 1:00 PM NUTRITION DIRECTOR Telemedicine [facility] [address], [place] [phone] Piper Art, [facility] Telehealth; Individual Therapy 02/23/2024 10:20 AM NUTRITION DIRECTOR Telemedicine [facility] [address] [place] [address] Aure Torres NP Telehealth 02/22/2024 Travel 02/22/2024 Telephone [facility] - [place] [address] [place] [phone] Zafar Allen MD Lab; Error-please disregard 02/22/2024 Telephone [facility] [place] [address] [place] [phone] Jarrod Brown MD Questions (labs) 02/21/2024 10:00 AM NUTRITION DIRECTOR Ancillary Procedure [facility] [address] [place] [address] 02/21/2024 9:30 AM NUTRITION DIRECTOR Orders Only [address] [address] Lab, [place] [facility] 02/21/2024 Anticoagulation (warfarin) [facility] [address] [place] [address] 1, [facility] Anticoagulation 02/21/2024 Travel 02/20/2024 Travel 02/18/2024 Travel 02/14/2024 Anticoagulation (warfarin) [facility] [address] [place] [address] 1, [facility] Anticoagulation (Acelis) 01/31/2024 Anticoagulation (warfarin) [facility] [address] [place] [address] 1, [facility] Anticoagulation ([facility]) 01/23/2024 Refill [facility] [address] [place] [address] Sisi Day, DO Refill Request (Nicotine 14 mg/24 hr patch) 01/17/2024 Refill [facility] [address] [place] [address] Sisi Day, DO Refill Request (Warfarin) 01/17/2024 Anticoagulation (warfarin) [facility] [address] [place] [address] 1, [facility] Anticoagulation (Acelis) 01/11/2024 2:00 PM NUTRITION DIRECTOR Telemedicine [facility] [address] [place] [address] Piper Art, [facility] Individual Therapy; Telehealth 01/11/2024 Travel 01/11/2024 Telephone [facility] [address] [place] [address] Sisi Day DO Anticoagulation (TARGET END DATE CONFIRMATION ) 01/10/2024 Anticoagulation (warfarin) [facility] [address] [place] [address] 1, [facility] Anticoagulation 01/04/2024 Telephone [facility] [address] [place] [address] Aure Torres NP Fax (Needing fax sent ) 01/03/2024 Anticoagulation (warfarin) [facility] [address] [place] [address] 1, [facility] Anticoagulation (Acelis) 01/03/2024 Telephone [facility] [address] [place] [address] Sisi Day DO Anticoagulation (Lab Orders/) 12/29/2023 8:15 AM CDT Telemedicine [facility] [address] [place] [address] Noemy Moreno MD Mental Health Intake; Medication Management (Patient has had med management by PCP, although Cymbalta was for pain not MH. Patient has seen therapist within [facility] system. Patient reports she doesn't feel like [...] ) 12/27/2023 4:30 PM CDT Office Visit [facility] [address] [place] [address] Marah Ruano MD Follow Up (Abdominal wound itchy and red) 12/27/2023 Anticoagulation (warfarin) [facility] [address] [place] [address] 1, [facility] Anticoagulation (Acelis) 12/27/2023 Travel 12/22/2023 Telephone [facility] [address] [place] [address] Marah Ruano MD Concerns 12/22/2023 Telephone [facility] [address] [place] [phone] Aure Torres NP DME Supply 12/22/2023 Telephone [facility] [address] [place] [phone] Aure Torres, [employer]ER Appointment Request 12/19/2023 10:00 AM CDT Telemedicine [facility] [address] [place] [address] Piper Art, [facility] Individual Therapy; Telehealth 12/13/2023 Anticoagulation (warfarin) [facility] [address] [place] [address] 1, [facility] Anticoagulation (Acelis) 12/08/2023 Refill [facility] [address] [place] [address] Sisi Day, Refill Request (Lisinopril 2.5mg, Midodrine Hydrochloride 5mg) 12/07/2023 Telephone [facility] [address] [place] [address] Aure Torres, [facility] DME Supply (Needs prescription [...] drink = 0.6 oz pur e alcohol) [facility] Utilities Answer Date Recorded Do you have [...] Comments Blood Pressure 120/79 03/01/2024 2:58 PM NUTRITION DIRECTOR Pulse 73 03/01/2024 2:58 PM NUTRITION DIRECTOR Temperature 35.9 C (96.7 F) 11/10/2023 3:19 PM CDT Respiratory Rate 16 11/10/2023 5:54 PM CDT Oxygen Saturation 98% 03/01/2024 2: 58 PM NUTRITION DIRECTOR Inhaled Oxygen Concentration - - Weight 105.6 kg (232 lb 11.2 oz) 03/01/2024 2:58 PM NUTRITION DIRECTOR Height 157.5 cm (5' 2) 10/24/2023 3:15 PM CDT Body Mass Index 42.56 10/24/2023 3:15 PM CDT Plan of Treatment Upcoming Encounters Date Type Department Care Team (Late st Contact Info) Description 04/03/2024 7:15 AM NUTRITION DIRECTOR Telemedicine [facility] [address] [place] [address] [place] [address] [place], [place] [phone] Health Maintenance Due Date Last Done Comments [...] BASIC METABOLIC PANEL Routine 02/23/2024 3:16 PM NUTRITION DIRECTOR ASHD (arteriosclerotic heart disease) Mixed hyperlipidemia LIPID PANEL W REFLEX MEASURED LDL Routine 02/23/2024 3:16 PM NUTRITION DIRECTOR Mixed hyperlipidemia ECHO TTE COMPLETE W CONTRAST Routine 02/21/2024 10:38 AM NUTRITION DIRECTOR LV (left ventricular) mural thrombus following MD (HC) ASHD (arteriosclerotic heart disease) HFrEF (heart failure with reduced ejection fraction) (HC) INR,POCT Routine 02/21/2024 9:29 AM NUTRITION DIRECTOR LV (left ventricular) mural thrombus following MD (HC) Iliac artery thrombosis, right (HC) Anticoagulation monitoring, INR range 2-3 HOME MONITOR AC Routine 02/14/2024 12:00 AM NUTRITION DIRECTOR HOME MONITOR AC Routine 01/31/2024 12:00 AM NUTRITION DIRECTOR HOME MONITOR AC Routine 01/17/2024 12:00 AM NUTRITION DIRECTOR HOME MONITOR AC Routine 01/10/2024 12:00 AM NUTRITION DIRECTOR HOME MONITOR AC Routine 01/03/2024 12:00 AM [...] W REFLEX MEASURED LDL (02/23/2024 3:16 PM NUTRITION DIRECTOR) CHOLESTEROL, TOTAL 193 <200 mg/dL [facility] [...] Mainor SS et al. JEAN PIERRE. 2013;310(19): 3394-1388 (http://education.[employer].ChronoWake/faq/CCY508) CHOL/HDLC RATIO 3.1 <5.0 (calc) [facility] NON HDL CHOLESTEROL 131(H) <130 mg/dL (calc) [facility] Comment: For patients with diabetes plus 1 major ASCVD risk factor, treating to a non-HDL-C goal of <100 mg/dL (LDL-C of <70 mg/dL) is considered a therapeutic option. Blood BLOOD SPECIMEN / Unknown 02/23/2024 3:16 PM NUTRITION DIRECTOR 02/23/2024 3:16 PM NUTRITION DIRECTOR Narrative [facility] - 02/24/2024 4:08 AM NUTRITION DIRECTOR FASTING:NO FASTING: NO us Zafar Allen MD CHEMISTRY Final Resu lt [facility] [address] [place] [address], [place] [phone] [facility] [address] [place] [address] * BASIC METABOLIC PANEL (02/23/2024 3:16 PM NUTRITION DIRECTOR) GLUCOSE 90 65 - 139 mg/dL [facility] [...] BLOOD SPECIMEN / Unknown 02/23/2024 3:16 PM NUTRITION DIRECTOR 02/23/2024 3:16 PM NUTRITION DIRECTOR Narrative [facility] - 02/24/2024 4:08 AM NUTRITION DIRECTOR FASTING:NO FASTING: NO Zafar Allen MD CHEMISTRY Final Resu lt [facility] [address] [place] [address], [place] [phone] [facility] [address] [place] [address] * ECHO TTE COMPLETE W CONTRAST (02/21/2024 10:38 AM NUTRITION DIRECTOR) AORTIC VALVE MEAN PG 4 mmHg EJECTION FRACTION 55 % LVEDD 4.6 cm EJECTION FRACTION 45 - 50% Anatomical Region Laterality Modality Ultrasound 02/21/2024 9:54 AM NUTRITION DIRECTOR Narrative 02/21/2024 11:03 AM NUTRITION DIRECTOR ECHOCARDIOGRAM HOLLY SALEEM : 1970 53 years Study Date: 02/21/2024 9:54:54 AM Gender: F BP: 105/52 mmHg Height: 157.00 cm BSA: 1.99 m Weight: 100.00 kg Tech: LONA Referring MD: ZAFAR ALLEN Site: [facility] Location: MOBILE-OP Patient Location: Outpatient. Procedure: 2D w/ Contrast, Color Doppler and Spectral Doppler. Indication for study: LV (left ventricular) mural thrombus following MD; ASHD (arteriosclerotic heart disease); HFrEF (heart failure [...] documentation: 3.5 ml diluted Definity, lot #[id number], [facility]# [id number] was administered peripherally to enhance visualization of all left ventricular segments. . This study was interpreted by an [facility] accredited facility. Final Procedure Note Osmani Cyr MD - 02/21/2024 ECHOCARDIOGRAM HOLLY SALEEM : 1970 53 years Study Date: 02/21/2024 9:54:54 AM Gender: F BP: 105/52 mmHg Height: 157.00 cm BSA: 1.99 m Weight: 100.00 kg Tech: LONA Referring MD: ZAFAR ALLEN Site: [facility] Location: MOBILE-OP Patient Location: Outpatient. Procedure: 2D w/ Contrast, Color Doppler and Spectral Doppler. Indication for study: LV (left ventricular) mural thrombus following MD;ASHD (arteriosclerotic heart disease); HFrEF (heart failure with [...] documentation: 3.5 ml diluted Definity, lot #[id number], [facility]#[id number] was administered peripherally to enhance visualization of allleft ventricular segments. . This study was interpreted by an [facility] accredited facility. Final Zaafr Allen MD ECHO ORD Final Resu lt * (ABNORMAL) INR - POCT [29527.2] - Standing Order (02/21/2024 9:29 AM NUTRITION DIRECTOR) INR 2.4(H) ratio [facility] Comment: INRs >2.9 may be falsely elevated [...] PROTHROMBIN TIMEP 29.3(H) 10.5 - 13.1 sec [facility] Comment: Point of care fingerstick Prothrombin Time/INR results may vary from venous Prothrombin Time/INR methodologies. Any results exhibiting inconsistency with the patient's clinical status should be repeated using a venous Prothrombin Time/INR method. Blood BLOOD SPECIMEN / Unknown 02/21/2024 9:29 AM NUTRITION DIRECTOR 02/21/2024 9:29 AM NUTRITION DIRECTOR Sisi Garcia Shay DO LABORATORY Final Resu lt [facility] [address] [place] [address], [place] [phone] [facility] [address] [place] [address] * (ABNORMAL) HOME MONITOR AC (02/14/2024 12:00 AM NUTRITION DIRECTOR) Only the most recent of7 resultswithin the time period is included. PATIENT REPORTED HOME INR 3.2(H) 2.00 - 3.00 [facility] 02/14/2024 Sisi Radha Day DO OTHER Final Resu lt [facility] [address] [place] [address] * COLONOSCOPY (10/24/2023 3:18 PM CDT) 10/24/2023 [...] adequate candidate for conscious sedation. The endoscope [id number] was passed through the anus andadvanced to [...] provider. XR MAMMO LUIS MANUEL BILAT SCREEN [[id number]] CLINICAL HISTORY: This is an asymptomatic 52 [...] ve Non-React jerome 07/07/2023 10:13 PM CDT [facility] TRAL [facility]ORATORY Comment:Please note, per www .CDC.gov: [...] OUTS Final Resu lt Performing Organization Address [facility]/ZIP Co de Phone Number [facility] [address] [place] [address], * ANTI HIV 1/2 [[id number]] (07/07/2023 11:44 AM CDT) HIV-1/HIV-2 SCREEN Non-Reacti ve Non-Reacti ve 07/07/2023 10:14 PM CDT [facility] Comment:HIV-1 p24 and HIV-1/ HIV-2 Ab Not Detected. Blood BLOOD SPECIMEN / Unknown Venipuncture / Unknown 07/07/2023 11:44 AM CDT 07/07/2023 11:46 AM CDT Sisi Day DO SEND OUTS Final Resu lt Performing Organization Address [facility] de Phone Number [facility] [address] [place] [address], [place] * HPV HIGH RISK (07/07/2023 11:20 AM CDT) TYPE 16 Negative Negative 07/12/2023 2:02 PM CDT [facility] TRAL [facility] TYPE 18 Negative Negative 07/12/2023 2:02 PM CDT [facility] TRA LABORAT[facility] OTHER HIGH RISK TYPES Negative Negative 07/12/2023 2:02 PM CDT [facility] Other (Cervical) Non-Blood / Unknown 07/07/2023 11:20 AM CDT 07/10/2023 12:31 PM CDT Narrative [facility] - 07/12/2023 2:02 PM CDT HPV types 16, 18, 31, 33, 35, 39, 45, 51, 52, 56, 58, 59, 66 and 68 DNA were undetectable or below the pre-set threshold. Methodology: [employer] 4800 HPV Test Sisi Radha Shay DO MICROBIOLOGY Final Resu lt [facility] 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
== END 2024-03-06 16:40 | disposition home or self-care (01) ==
PROVIDERS: Emergency Provider Family Medicine; PCP Family Medicine
DX: M54.50 Low back pain, unspecified (principal); X50.1XXA Overexertion from prolonged static or awkward postures, initial encounter
CPT/HCPCS: 96372; 99283; 99284; J1885

== ENCOUNTER 2025-02-18 11:52 | Outpatient (CLI) | payer OTHER, SELFPAY | END 2025-02-18 11:53 | disposition home or self-care (01) | LOC: AMB 02-20 22:14 | PROVIDERS: PCP Family Medicine; Visit Provider Family Medicine | DX: R10.9 Unspecified abdominal pain (principal); R07.89 Other chest pain | CPT/HCPCS: A0425; A0427 ==

== ENCOUNTER 2025-02-18 12:46 | Inpatient (IN) | payer OTHER, SELFPAY ==
--- OUTSIDE RECORDS SUMMARY | 2025-02-18 12:48 | XMS_ITS | Clinical Summary ---
Author Organization [facility] Address [address] [place] [address] Care Team Providers Care Swimming Pool Salesperson Name Role Phone [facility]Addison Unavailable [phone] Sisi Day DO Primary Care Provider [phone] Aure Torres ATG ARCHITECT Unavailable [phone] Allergies Active AllergyReactionsCriticalityNoted DateCommentsVenom-TlweAhscm36/26/2024 Medications MedicationSigDispense QuantityRefillsLast FilledStart DateEnd DateStatus nitroglycerin (NITROSTAT) 0.4 mg sublingual tablet Indications:ASHD (arteriosclerotic heart disease)Place 1 Tablet (0.4 mg) under the tongue every 5 minutes if needed for Chest Pain. Up to 3 tablets in 15 minutes. 25 Tablet 6:37 PM CDT06/05/2023ctive acetaminophen (TYLENOL EXTRA STRGTH) 500 mg tablet Indications:Postprocedural intraabdominal abscess (HC)Take 2 Tablets (1,000 mg) by mouth every 8 hours. Max acetaminophen dose: 4000mg in 24 hrs.06/12/2023 Active nicotine 2 mg lozenge Indications:Tobacco use disorder, moderate, in early remissionPlace 1 Lozenge (2 mg) in mouth, between cheek & gum every hour while awake as needed for Nicotine Craving. 100 Each ctive atorvastatin (LIPITOR) 40 mg tablet Indications:ASHD (arteriosclerotic heart disease),Mixed hyperlipidemiaTake 1 Tablet (40 mg) by mouth at bedtime. 90 Tablet ctive CPAP Indications:HEIDE (obstructive sleep apnea),Snoring,Nocturnal hypoxemiaCPAP (E0601) machine for home use at pressure: 5-16 , Choice of mask (A7030 or A7034) w/full face cushion (A7031) x1/mo, nasal cushion (A7032) x2/mo, or nasal pillows (A7033) x 2/mo; Length of Need: 99 months; Frequency of use: Daily 1 Each 1104Active nicotine 14 mg/24 hr (NICODERM; HABITROL) 14 mg/24 hr patch Indications:Tobacco use disorder, moderate, in early remissionApply 1 Patch on dry, clean, hairless skin once daily. 14 Patch 4Active metoprolol succinate (TOPROL XL) 50 mg sustained-release tablet Indications:Paroxysmal atrial fibrillation (HC),ASHD (arteriosclerotic heart disease)Take 1 Tablet (50 mg) by mouth once daily. 90 Tablet 5Active furosemide 20 mg tablet Indications:HFrEF (heart failure with reduced ejection fraction) (HC)Take 1 Tablet (20 mg) by mouth once daily if needed (For weight gain of 3 lbs in 24 hours, or 5 lbsin 1 week). Please contact cardiology if using lasix more than once/week. Further refills to follownext clinic visit on 08/14/24 30 Tablet 5Active clopidogreL 75 mg tablet Indications:ASHD (arteriosclerotic heart disease)Take 1 Tablet (75 mg) by mouth once daily in the morning. 90 Tablet 5Active lisinopriL 2.5 mg tablet Indications:ASHD (arteriosclerotic heart disease),NSTEMI (non-ST elevated myocardial infarction) (HC),HFrEF (heart failure with reduced ejection fraction) (HC)Take 1 Tablet (2.5 mg) by mouth once daily. 90 Tablet 5Active nystatin 100,000 unit/gram cream 5Active pantoprazole (PROTONIX) 40 mg delayed-release tablet Indications:Acute GI bleedingTake 1 Tablet (40 mg) by mouth once daily before a meal. 90 Tablet 5Active semaglutide (weight loss) (Wegovy) 1.7 mg/0.75 mL subcutaneous pen Indications:Obesity, Class I, BMI 30-34.9Inject 1.7 mg subcutaneous once weekly. 3 mL 5Active EPINEPHrine (EPIPEN) 0.3 mg/0.3 mL auto-injector Indications:Allergy to insect venomInject 0.3 mg (1 Pen) intramuscular each time if needed for Allergic Reaction. 2 Each 5Active warfarin (COUMADIN) 5 mg tablet Indications:LV (left ventricular) mural thrombus following SD (HC),Iliac artery thrombosis, right (HC),Anticoagulation monitoring, INR range 2-3Take by mouth 5 mg (5 mg x 1) every Wed; 7.5 mg (5 mg x 1.5) all other days in the evening OR as ihdshfra55/05/2025Active ezetimibe (ZETIA) 10 mg tablet Indications:ASHD (arteriosclerotic heart disease),Mixed hyperlipidemiaTake 1 tablet by mouth every day 30 Tablet 5Active buPROPion (Wellbutrin XL) 300 mg Extended-Release tablet Indications:Moderate episode of recurrent major depressive disorder (HC),DAVID (generalized anxiety disorder)Take 1 Tablet (300 mg) by mouth once daily. 30 Tablet 5Active DULoxetine (CYMBALTA) 60 mg Delayed-release capsule Indications:Moderate episode of recurrent major depressive disorder (HC),DAVID (generalized anxiety disorder)Take 2 Capsules (120 mg) by mouth once daily. 60 Capsule 5Active ezetimibe (ZETIA) 10 mg tablet Indications:ASHD (arteriosclerotic heart disease),Mixed hyperlipidemiaTake 1 tablet by mouth every day 30 Tablet Discontinued DULoxetine (CYMBALTA) 60 mg Delayed-release capsule Indications:Moderate episode of recurrent major depressive disorder (HC),DVAID (generalized anxiety disorder)Take 2 Capsules (120 mg) by mouth once daily. 60 Capsule Discontinued(Reorder (E-cancel not sent)) buPROPion (Wellbutrin XL) 300 mg Extended-Release tablet Indications:Moderate episode of recurrent major depressive disorder (HC),DAVID (generalized anxiety disorder)Take 1 Tablet (300 mg) by mouth once daily. 30 Tablet Discontinued(Reorder (E-cancel not sent)) warfarin (COUMADIN) 5 mg tablet Indications:LV (left ventricular) mural thrombus following SD (HC),Iliac artery thrombosis, right (HC),Anticoagulation monitoring, INR range 2-3Take by mouth 10 mg (5 mg x 2) every Sun; 7.5 mg (5 mg x 1.5) all other days in the evening OR as directed 145 Tablet Discontinued(Other - add note to specify (E-cancel not sent)) Active Problems ProblemNoted DateDiagnosed DateOSA (obstructive sleep apnea)07/18/2024 Gyllnzdahxa54/15/2025MI 40.0-44.9, adult07/18/20246947Kztbibsd73/15/2025 Ydkzliwmpkrtpia51/15/2025Encounter for diagnostic colonoscopy due to change in bowel jlshme1510/25/2023Fatty liver10/13/2023ap smear for cervical cancer ahyhgvmzy21/17/2024 Overview (07/21/2023): 07/2023 NIL/HPV negative. Plan: Pap/HPV due 07/2028. Adjustment disorder with mixed anxiety and depressed mood07/07/2023 Anticoagulation monitoring, INR range 2-304/cute on chronic anemia 05/28/2023Iliac artery thrombosis, right05/24/2023HFrEF (heart failure with reduced ejection fraction)05/24/2023trial odmethc8005/23/2023LV (left ventricular) mural thrombus following MI05/23/2023Obesity, Class II, BMI 35-39.9 02/15/2016 Resolved Problems ProblemNoted DateDiagnosed DateResolved DateAcute GI siysjjjy86/24/2024 07/07/2023ostprocedural intraabdominal qvldazv60/05/2023S/P fkaidtknokiy60 Encounters DateTypeDepartmentCare HltvDxubbjvgqvv01/16/2025 11:00 AM CSTAncillary Procedure [facility] [address] [place] [address] Roscnyk9102/18/2025 10:15 AM CSTOrders Only [facility] [address] [place] [address] Lab, [place] <No scans attached>02/18/20254334Rpqndx73/12/0105Ploxjo46/09/2025 8:45 AM FANCY SEWER Telemedicine [facility] [address] [place] [address] Noemy Moreno MD Telehealth; Medication Mwnmdgulrf67/09/2025Telephone [facility] [address] [place] [address] Jarrod Brown MD Lab (Lab orders needed)02/10/20254705Zwypnp72/05/2025 7:45 AM CSTTelemedicine [facility] [address] [place] [address] Noemy Moreno MD Telehealth; Medication Roapihpvqj77/05/2025Telephone [facility] [address] [facility] [place] [address] Sisi Day, Anticoagulation (Out of State Dosing)02/07/2025Refill [facility] [address] [place] [address] Jarrod Brown MD Refill Request (Ezetimibe)02/06/2025Orders Only [facility] Scanner 1 scan: (1-Ord) [facility], PROTHROMBIN TIME AND INR, Travel 02/05/2025nticoagulation (warfarin) [facility] [address] [facility] [place] [address] Sisi Day, DO Error-please disregard (opened in error)02/05/2025Telephone [facility] [address] [facility] [place] [address] Sisi Day DO Anticoagulation (Out Of State)5Anticoagulation (warfarin) [facility] [address] [place] [address] Nurse, Ahg Anticoag Anticoagulation (Acelis HM - out of state )01/22/2025nticoagulation (warfarin) [facility] [address] [place] [address] Nurse, Ahg Anticoag Anticoagulation (Acelis)01/14/2025Refill [facility] [address] [place] [address] Sisi Day, DO Refill Request (Warfarin Sodium 5mg tabs)01/13/2025nticoagulation (warfarin) [facility] [address] [place] [address] Nurse, Ahg Anticoag Anticoagulation (Acelis )01/10/2025 7:45 AM CSTTelemedicine [facility] [address] [place] [address] Noemy Moreno MD Telehealth; Follow Up; Medication Wfmmypidcv09/06/0185Izdgfh97/04/2025 Anticoagulation (warfarin) [facility] [address] [place] [address] Nurse, Ahg Anticoag Anticoagulation (chart update)01/06/2025Refill [address] [address] Sisi Day, DO Refill Request (Epipen)01/06/2025Telephone [facility] [address] [place] [address] Sisi Day, DO Anticoagulation (Annual re-enrollment /)12/30/2024nticoagulation (warfarin) [address] [address] Nurse, Ahg Anticoag Anticoagulation (Acelis)5Anticoagulation (warfarin) [facility] [address] [place] [address] Nurse, Ahg Anticoag Anticoagulation (Acelis)5Anticoagulation (warfarin) [facility] [address] [place] [address] NurseJoe Anticoag Anticoagulation (Acelis)11/29/2024Refill [facility] [address] [place] [address] Noemy Moreno MD Refill Request (Bupropion)11/29/2024Refill [facility] [address] [place] [address] Sisi Day, Refill Request; GJJFGOJPIJHL66/22/2025nticoagulation (warfarin) [facility] [address] [place] [address] Nurse, Joe Anticoag Anticoagulation (Acelis)from Last 3 Months Immunizations ImmunizationAdministration DatesNext DueINFLUENZA, IIV3 PF (AGE >= 6 MO) 12/15/2023Influenza, SBE646Influenza,CCIIV4 PRESERV FREE01/15/2023, 01/08/2022neumococcal Conj 20-valent (Prevnar 20)11/01/2024Polio Virus, Arruvowbjbd67/12/5442Hqls86/18/2016Zoster (Shingrix-RZV, recombinant)12/21/2021, 07/24/2021 Family History Medical HistoryRelationNameCommentsCoronary artery diseaseFather4 vessel CABG HyperlipidemiaFatherDepressionMotherHypertensionMotherOCDMotherCancer-breastNo Family HistoryCancer-ovarianNo Family HistoryRelationNameStatusCommentsFather AliveMotherAliveSisterAlive Social History Tobacco UseTypesPacks/DayYears UsedDateSmoking Tobacco: FormerCigarettes Smokeless Tobacco: Never Tobacco Cessation:Counseling Given: Yes Alcohol UseStandard Drinks/WeekCommentsNot Currently3 (1 standard drink = 0.6 oz pure alcohol)PHQ-2AnswerDate RecordedPHQ-2 TOTAL KCXJU03804/13/2024Social ConnectionsAnswerDate RecordedDo you often feel lonely or isolated from those around you?Financial Resource StrainAnswerDate RecordedDifficulty of Paying Living Ffmnegqx690/07/2025Difficulty of Paying Living ExpensesNot on file 07/10/2024Food InsecurityAnswerDate RecordedDo you worry your food will run out before you are able to buy more?Transportation NeedsAnswerDate RecordedDoes lack of transportation keep you from medical appointments?1 07/10/2024Does lack of transportation keep you from work, meetings or getting things that you need?Housing StabilityAnswerDate RecordedWhat is your housing situation today?Interpersonal SafetyAnswerDate RecordedAre you being hit, kicked, pushed or yelled at (see row info)?No06/07/2023 Interpersonal Safety Abuse 12 - 18Not on file06/07/2023Interpersonal Safety Ambulatory VulnerabilityNot on file06/07/2023UtilitiesAnswerDate RecordedDo you have trouble paying for utilities (for example, heat, electricity, water, phone)?CommentsNoSex and Gender InformationValueDate Recorded Sex Assigned at BirthNot on fileLegal CcwQpytec82/17/2016 7:21 PM CDTGender IdentityNot on fileSexual OrientationNot on fileTravel HistoryTravel StartTravel NvbNkqfr02/ Last Filed Vital Signs Vital SignReadingTime TakenCommentsBlood Rvupmouq872/7411/01/2024 8:38 AM CDT Imqyq875111/01/2024 8:38 AM AVWVaejvytmtku96.9 ??C (96.7 ??F)11/10/2023 3:19 PM CDTRespiratory Jlaw241211/10/2023 5:54 PM CDTOxygen Wtcxslwpru24%08/14/2024 8:57 AM CDTInhaled Oxygen Concentration--Eckspu68.6 kg (219 lb 9.6 oz)01/03/2025 10:00 AM CDTpt. nvumixpnRjxozf503.5 cm (5' 2)08/14/2024 8:57 AM CDTBody Mass Index40.17008/14/2024 8:57 AM CDT Plan of Treatment DateTypeDepartmentCare Team (Latest Contact Info)Irddrvzanbd04/22/2025 10:00 AM CSTOffice Visit [facility] [address] [place] [address] [address] [place] [address] Jarrod Brown MD [address] [facility] [address] [place] [address] 04/01/2025 7:45 AM CSTTelemedicine [facility] [address] [place] [address] [place] [address] [place] [address] Health MaintenanceDue DateLast DoneCommentsHepatitis B series for 19+ (1 of 3 - 19+ 3-dose series)08/16/1990RSV vaccine for adults or (1 - Risk 50-74 years 1-dose series)2Colonoscopy through age / Influenza Vaccine (#1)/01/2024, 01/15/2023, 01/08/2022, Additional history existsMammogram for age 45-750/10/2024, 07/11/2023Tetanus hugivdq05/BMI (ht and wt on same day) for age 18+08/14/2025 08/14/2024, 09/29/2023, 07/07/2023, Additional history existsDepression screening for age 12+/10/2024, 02/05/2025, 01/13/2025, Additional history existsPap test for age 21-650/905/05/2023, 07/07/2023, 03/03/2016 Lipids for age 45-/, 02/23/2024, 05/24/2023, Additional history existsZoster (shingles) series for age 50+Lbinmvsxq48/18/2022, 07/24/2021HIV for age 15-96Zduagtpzb57/03/2024Hepatitis C screening for age 18-69Ytzvvtxth19/03/2024neumococcal series for age 50+Iiszcuvcd17/29/2025OVID- 19 vaccine mgxgwwTjckmqheo30/10/2025, 12/15/2023, 01/15/2023, Additional history exists Procedures Procedure NamePriorityDate/TimeAssociated DiagnosisCommentsSCAN-LABORATORY RBDSOG6602/06/2025 12:00 AM FANCY SEWER INR,WKWOWwjncxu79/04/2025 HOME MONITOR WNMhqyknt51/03/2025 12:00 AM FANCY SEWER HOME MONITOR DUFhsbcrk13/03/2025 12:00 AM FANCY SEWER HOME MONITOR XXRkgewii36/19/2025 12:00 AM FANCY SEWER HOME MONITOR XWXijsdpu62/10/2025 12:00 AM FANCY SEWER HOME MONITOR OPItpyler20/27/2025 12:00 AM CDT HOME MONITOR HTQyuztmn74/13/2025 12:00 AM CDT HOME MONITOR LEGinbluz63/29/2025 12:00 AM CDT HOME MONITOR GBGipzzba22/22/2025 12:00 AM CDT XR MAMMO BILAT HONGOEAQKJygisjz02/08/2025 10:50 AM CDT Visit for screening mammogram LIPID UMMQLWktsdmk85/14/2025 7:44 AM CDT HFrEF (heart failure with reduced ejection fraction) (HC) Mixed hyperlipidemia Ischemic cardiomyopathy TTAPIURPRDG53/20/2024 3:18 PM CDT ANTI HIV 1/3Qpyehne89/03/2024 11:44 AM CDT Screening for HIV (human immunodeficiency virus) ANTI OERDdywdqy68/03/2024 11:44 AM CDT Need for hepatitis C screening test HPV HIGH PSYLCmufmaq91/03/2024 11:20 AM CDT Screening for malignant neoplasm of cervix from Last 3 Months or Most Recently Relevant to Health Maintenance Results * SCAN-LABORATORY REPORT (02/06/2025 12:00 AM FANCY SEWER) Narrative Authorizing ProviderResult TypeResult StatusScannerOTHERFinal Result * (ABNORMAL) INR,POCT (02/06/2025)ComponentValueRef RangeTest MethodAnalysis TimePerformed AtPathologist SignatureINR3.4(EXTERNAL)0.9 - 1.2LABCORPSpecimen (Source)Anatomical Location / LateralityCollection Method / VolumeCollection TimeReceived TimeBloodBLOOD SPECIMEN / Bfhjrxs4902/06/2025 Narrative Authorizing ProviderResult TypeResult StatusSisi Day DOLABORATORYFinal ResultPerforming OrganizationAddressCity/State/ZIP CodePhone Number [facility] [address] [place] [address] * (ABNORMAL) HOME MONITOR AC (02/05/2025 12:00 AM FANCY SEWER) Only the most recent of8 resultswithin the time period is included. ComponentValueRef RangeTest MethodAnalysis TimePerformed AtPathologist Signature PATIENT REPORTED HOME INR5.8(H)2.00 - 3.00AL[facility] HOME MONITORINGSpecimen (Source) Anatomical Location / LateralityCollection Method / VolumeCollection Time Received Time02/05/2025 Narrative Authorizing ProviderResult TypeResult StatusSisi Day DOOTHERFinal ResultPerforming OrganizationAddressCity/State/ZIP CodePhone Number [facility] [address] [place] [address] * XR MAMMO BILAT SCREENING (07/11/2024 10:50 AM CDT)Anatomical RegionLaterality ModalityBREASTS, Breast Left, Breast RightBilateralMammographySpecimen (Source)Anatomical Location / LateralityCollection Method / VolumeCollection TimeReceived Time Impressions 07/11/2024 3:18 PM CDT There is no radiographic evidence for malignancy. Recommend annual mammograms. MAMMOGRAM ASSESSMENT: ??ACR 1 Negative PATIENTS: You will also receive a letter with your examination results in an easy to read format. ??If you have questions about your results, please contact your referring provider. Narrative 07/11/2024 3:18 PM CDT For Patients: As a result of the Century Cures Act, medical imaging exams and procedure reports are released immediately into your electronic medical record. You may view this report before your referring provider. If you have questions, please contact your health care provider. XR MAMMO BILAT SCREENING [[id number]] CLINICAL HISTORY: ??This is an asymptomatic 53 y.o. patient. INDICATION FOR EXAM: Mammogram Screening. TECHNIQUE: CC and MLO views were obtained. ??This study was evaluated with the assistance of Computer-Aided Detection. COMPARISON FILM: Yes 07/11/23 [employer] ?? FINDINGS: ??The breasts are heterogeneously dense, which may obscure small masses. There are no dominant masses, suspicious micro calcifications or areas of architectural distortion. Authorizing ProviderResult TypeResult StatusErin Radha SCHMIDTAMMOFinal Result * LIPID PANEL (05/17/2024 7:44 AM CDT)ComponentValueRef RangeTest MethodAnalysis TimePerformed AtPathologist SignatureCHOLESTEROL, CBHMQ561<200 mg/dLQuest OneBuild DaleHDL JYYFZSWZELK67> OR = 50 mg/dLQuest OneBuild YsthJNTRSSOIUDVNJ430<150 mg/dLQuest OneBuild DaleLDL-OOPRJAARVHD76 mg/dL (calc)[facility] OneBuild DaleComment: Reference range: <100 Desirable range <100 mg/dL for primary prevention; <70 mg/dL for patients with CHD or diabetic patients with > or = 2 CHD risk factors. LDL-C is now calculated using the Joselyn calculation, which is a validated novel method providing better accuracy than the Friedewald equation in the estimation of LDL-C. Mainor YODER et al. JEAN PIERRE. 2013;310(19): 1998-2972 (http://education.Sano.Ubitricity/faq/KUQ903) CHOL/HDLC RATIO2.4<5.0 (calc)[facility]-Ariel NelsonCharli HDL FPHAONWJWMP98 <130 mg/dL (calc)[facility]-Drew OmareComment: For patients with diabetes plus 1 major ASCVD risk factor, treating to a non-HDL-C goal of <100 mg/dL (LDL-C of <70 mg/dL) is considered a therapeutic option. Specimen (Source)Anatomical Location / LateralityCollection Method / Volume Collection TimeReceived TimeBloodBLOOD SPECIMEN / Roskavw7305/17/2024 7:44 AM CDT 05/17/2024 7:45 AM CDT Narrative Authorizing ProviderResult TypeResult StatusJonatmartha Brown MDCHEMISTRY Final ResultPerforming OrganizationAddressCity/State/ZIP CodePhone Number [employer] [facility] [address] [place] [address], [facility] [address] [place] [address] * COLONOSCOPY (10/24/2023 3:18 PM CDT)Specimen (Source)Anatomical Location / LateralityCollection Method / VolumeCollection TimeReceived Time10/24/2023 3:18 PM CDT Narrative Transcriptions Sarah Kapoor DO - 10/24/2023 4:07 PM CDT Patient Name: Regina Saleem Procedure Date: 10/24/2023 Gender: Female Date [...] adequate candidate for conscious sedation. The endoscope [id number] was passed through the anus andadvanced to [...] electronically. Note Initiated On: 10/24/2023 3:18 PM Authorizing ProviderResult TypeResult StatusLatoniaeitan Kapoor DOPROCEDPEDRO ORD Final Result * ANTI HCV (07/07/2023 11:44 AM CDT)ComponentValueRef RangeTest MethodAnalysis TimePerformed AtPathologist SignatureHEPATITIS C ANTIBODYNon-Reactive Non-Cvspgmet19/03/2024 10:13 PM [facility] Comment:Please note, per www.CDC.gov: If a patient is known to be at high risk of HCV infection, or is symptomatic, and the physician's suspicion of HCV infection is high, HCV RNA testing is often employed and is of diagnostic value, even after an initial negative anti-HCV test result.Specimen (Source) Anatomical Location / LateralityCollection Method / VolumeCollection Time Received TimeBloodBLOOD SPECIMEN / UnknownVenipuncture / Qbrzgwc4107/07/2023 11:44 AM CDT07/07/2023 11:46 AM CDT Narrative Authorizing ProviderResult TypeResult StatusSisi FERMIN OUTSFinal ResultPerforming OrganizationAddressCity/State/ZIP CodePhone Number [facility] [address] [place] [address], * ANTI HIV 1/2 [04945.0] (07/07/2023 11:44 AM CDT)ComponentValueRef RangeTest MethodAnalysis TimePerformed AtPathologist SignatureHIV-1/HIV-2 SCREEN Hkp-BeomkiyfXfu-Ibhkxaed34/03/2024 10:14 PM [facility] CENTRAL LABORATORYComment:HIV-1 p24 and HIV-1/HIV-2 Ab Not Detected.Specimen (Source)Anatomical Location / LateralityCollection Method / VolumeCollection TimeReceived TimeBloodBLOOD SPECIMEN / UnknownVenipuncture / Kgcnmcc6007/07/2023 11:44 AM CDT07/07/2023 11:46 AM CDT Narrative Authorizing ProviderResult TypeResult Jt FERMIN OUTSFinal ResultPerforming OrganizationAddressty/State/ZIP CodePhone Number [facility] [address] [place] [address], * HPV HIGH RISK (07/07/2023 11:20 AM CDT)ComponentValueRef RangeTest Method Analysis TimePerformed AtPathologist SignatureTYPE 16NegativeNegative 07/12/2023 2:02 PM CDSOUTH [facility]FL[facility]-CENTRAL LABORATORYTYPE 18 FsknojtoThdfrjko78/08/2024 2:02 PM CDWEST CAMP[facility] OF [facility]ENTERCENTRAL LABORATORYOTHER HIGH RISK JTDGVNpwgaldbElyxiank65/08/2024 2:02 PM CDWEST CAMP[facility] OF [facility] CENTERCENTRAL LABORATORYSpecimen (Source)Anatomical Location / LateralityCollection Method / VolumeCollection TimeReceived TimeOther (Cervical)Non-Blood / Mcwwufz9207/07/2023 11:20 AM CDT07/10/2023 12:31 PM CDT Narrative [facility] - 07/12/2023 2:02 PM CDT HPV types 16, 18, 31, 33, 35, 39, 45, 51, 52, 56, 58, 59, 66 and 68 DNA were undetectable or below the pre-set threshold. Methodology: Solo Soumya 4800 HPV Test Authorizing ProviderResult TypeResult StatusSisi Day DOMICROBIOLOGY Final ResultPerforming OrganizationAddressCity/State/ZIP CodePhone Number [facility] [address] [place] [address], from Last 3 Months or Most Recently Relevant to Health Maintenance Insurance Advance Directives * Full Code (Latest Code Status on File) Date ActivatedDate InactivatedComments10/24/2023 1:16 PM10/24/2023 6:49 PMQuestion AnswerCommentsCode Status Discussion:* Discussed * Full Code Date ActivatedDate InactivatedComments05/23/2023 5:39 PM06/13/2023 6:00 PMQuestion AnswerCommentsCode Status Discussion:* Reviewed Preferences Care Teams Team MemberRelationshipSpecialtyStart DateEnd Date Sisi Day DO [address] [place] [address] PCP - GeneralFamily Practice06/16/23 [place] [id number] [address] 06/13/23 Aure Torres, ATG ARCHITECT [address] [facility] [address] [place] [address] Sleep Medicine12/01/23
[2025-02-18 12:50] VITALS: BP 110/76; PULSE 75; RESP 24; TEMP 35.5; O2SAT 96; BMI 38.0
--- NOTE | 2025-02-18 13:18 | CRLHL7_ITS ---
For Patients: As a result of the 21st Century Cures Act, medical imaging exams and procedure reports are released immediately into your electronic medical record. You may view this report before your referring provider. If you have questions, please contact your health care provider. INDICATION: Diffuse abdominal pain, previous appendectomy. (Sic) COMPARISON: None available. TECHNIQUE: CT of the abdomen and pelvis with 95 cc of Isovue 370 intravenous contrast. Please note that all CT scans at this facility use dose modulation, iterative reconstruction, and/or weight-based dosing when appropriate to reduce radiation dose to as low as reasonably achievable. FINDINGS: ABDOMEN Liver: Normal contour and attenuation. Diffuse steatosis. Focal fatty infiltration. No significant focal lesion. No intrahepatic biliary ductal dilatation. Patent portal veins. Patent hepatic veins. Portal veins are not uniformly enhanced on the early hepatic arterial phase study. Hepatic veins are not enhanced on this hepatic arterial phase exam. Gallbladder: Nondistended. Suspected cholelithiasis (series 2; image 49). Mild gallbladder wall thickening. In this patient with peripancreatic fat stranding consistent with pancreatitis findings are suspicious for gallstone pancreatitis and secondary wall thickening of the gallbladder. Acute cholecystitis is also included in the differential diagnosis. Normal common duct caliber. Pancreas: Normal contour and attenuation. Note that discrimination between acute interstitial edematous pancreatitis and necrotizing pancreatitis is limited if symptom onset is less than 3-5 days prior to imaging. Inflammatory fat stranding surrounds the pancreatic head, neck and adjacent 2nd and 3rd duodenal segments. Findings are consistent with acute uncomplicated interstitial pancreatitis. No significant focal lesion. Nondilated duct. Spleen: Not enlarged. No significant focal lesion. Patent splenic artery and vein. Adrenal Glands: Symmetrical adrenal glands. No significant focal lesion. Kidneys: Normal bilateral renal attenuation. No significant focal lesion. Likely benign too small to characterize cyst in the posterior interpolar left renal cortex for which no further workup is indicated per ACR White Paper guidelines (2; 47). No nephrolith. No dilatation of the intrarenal collecting systems. No ureteral stone. Nondilated ureters. Patent renal arteries and veins. Gastrointestinal tract: Ileocecal resection. Nondilated bowel.. Vascular: Chronic mild aortoiliac atherosclerotic mural calcification. Abdominal aorta and its major proximal branches including the celiac, superior mesenteric, inferior mesenteric, renal, and bilateral common iliac arteries are patent. Patent superior mesenteric vein. Peritoneal Cavity/Retroperitoneum: No ascites. No adenopathy. PELVIS No bladder lesion is identified. Anteverted retroflexed uterus. Posterior uterine subserosal fibroid measuring 1.5 cm (2; 15). No significant ascites. Small volume low density pelvic ascites within physiologic limits of normal. No adenopathy. SKELETON AND BODY WALL Findings consistent with postsurgical changes in the periumbilical anterior abdominal wall. Supraumbilical anterior midline abdominal wall bulge into which the mid transverse colon protrudes consistent with a wide neck epigastric hernia (2; 66). Infiltration of the subcutaneous fat in the mid clavicular line of the infraumbilical anterior abdominal wall could be due to subcutaneously administered injections at these locations. Please correlate with the patient`s history. LOWER THORAX Partially included lower thoracic wall, lungs, pleural spaces and mediastinum are without significant incidental findings. IMPRESSION: 1. Acute uncomplicated interstitial pancreatitis. 2. Suspect small gallstones. This can be confirmed with ultrasound. 3. Gallbladder wall thickening may be secondary to acute pancreatitis. Differential diagnostic considerations include mild acute cholecystitis. No significant pericholecystic inflammatory changes. 4. Ileocolic resection. No associated complication. 5. Additional findings as above. Please note that all CT scans at this facility use dose modulation, iterative reconstruction, and/or weight-based dosing when appropriate to reduce radiation dose to as low as reasonably achievable. Dictated by Benito Jerry MD @ 02/18/2025 2:02:59 PM (Electronically Signed)
--- NOTE | 2025-02-18 13:32 | ED.ABDPAIN ---
HPI - Abdominal Pain General Date Seen: 02/18/25 Chief Complaint: Abdominal Pain Stated Complaint: Abdominal pain Time Seen by Provider: 02/18/25 12:58 Source: patient Mode of arrival: ambulatory Limitations: no limitations History of Present Illness HPI narrative: Patient is a 54-year-old female presenting to emergency department for abdominal. She has a history of right hemicolectomy with a site infection, morbid obesity, MT, atrial thrombus presenting to the emergency department for abdominal pain. She was getting a echocardiogram done today when she son the felt like she was having abdominal pain. States this has been going on all day pain seems to come and go. She had other severe episodes of pain today including 1 that occurred while she was getting the echocardiogram. She was given pain medication P EMS and states her pain is much better at this time. She states she has been belching a lot but is not remember passing any gas. States her last bowel movement was yesterday and was normal. Has had previous abdominal surgery. States pain is diffusely throughout her abdomen. Has not noticed any more distention of her abdomen compared to normal. Denies fevers, chills, chest pain, shortness of breath, lightheadedness, dizziness, weakness, numbness. Does state pain seems to be going up into her epigastric region just below the tip of her sternum she has. No other concerns noted at this time. Related Data Home Medications ?Medication ?Instructions ?Recorded ?Confirmed hydrocodone 5 mg-acetaminophen 325 1 tab PO Q6H PRN pain 05/21/23 05/21/23 mg tablet atorvastatin 40 mg tablet 40 mg PO DAILY 03/06/24 03/06/24 clopidogrel 75 mg tablet 75 mg PO DAILY 03/06/24 03/06/24 duloxetine 30 mg capsule,delayed mg PO 03/06/24 release duloxetine 60 mg capsule,delayed 60 mg PO DAILY 03/06/24 03/06/24 release ezetimibe 10 mg tablet 10 mg PO DAILY 03/06/24 03/06/24 lisinopril 2.5 mg tablet 2.5 mg PO DAILY 03/06/24 03/06/24 metoprolol succinate 25 mg capsule 25 mg PO DAILY 03/06/24 03/06/24 sprinkle, ext. release 24 hr (Kapspargo Sprinkle) nicotine 14 mg/24 hr daily 1 patch topical DAILY 03/06/24 03/06/24 transdermal patch pantoprazole 40 mg tablet,delayed 40 mg PO DAILY 03/06/24 03/06/24 release warfarin 5 mg tablet mg PO 03/06/24 Allergies Allergy/AdvReac Type Severity Reaction Status Date / Time venom-wasp Allergy Mild Rash Verified 02/18/25 13:49 Review of Systems Status of ROS Reports: 10 or more systems reviewed and unremarkable except as noted in History and below PFSH [facility] Medical History Acute appendicitis ?K35.80 - Unspecified acute appendicitis (ICD-10) Morbid obesity with BMI of 40.0-44.9, adult ?E66.01 - Morbid (severe) obesity due to excess calories (ICD-10) ?Z68.41 - Body mass index [BMI] 40.0-44.9, adult (ICD-10) Recurrent low back pain ?M54.50 - Low back pain, unspecified (ICD-10) Acute back pain ?M54.9 - Dorsalgia, unspecified (ICD-10) Surgical History S/P right hemicolectomy ?Z90.49 - Acquired absence of other specified parts of digestive tract (ICD-10) S/P tonsillectomy ?Z90.89 - Acquired absence of other organs (ICD-10) Social History Narrative: Admits to smoking and drinking alcohol at least twice a week. 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 What is your current living situation?: I presently have a place to live Problems where you live: no known problems Problems where you live details: N/A In the past 12 months, utilities in danger of being shut off: no In past 12 months, lack of transportation kept you from medical appts, meetings, work, or getting things needed for daily living: no In the past 12 mos, have been you worried that your food would run out before you had money to buy more?: never true In the past 12 mos, the food you bought just didn't last and you didn't have money to buy more?: never true Highest level of school completed/degree received: Bachelor's degree Smoking Status: Current every day smoker What tobacco products do you use: cigarettes Years smoked: 30 Smoking quit date/years: >15 years ago Second hand tobacco smoke exposure: No How often do you have a drink containing alcohol: never How often do you have six or more drinks on one occasion: Never AUDIT-C Alcohol total score: 0 Non-prescribed substance use: denies use Caffeine: Yes (2-3 coffees daily) How often does anyone, including family, friends and others, physically hurt you: never How often does anyone, including family, friends and others, insult or talk down to you: never How often does anyone, including family, friends and others, threaten you with harm: never How often does anyone, including family, friends and others, scream or curse at you: never service: No Exam Narrative: Exam Narrative: Const: Well-nourished, Well-developed, in mild distress Eyes: PERRL, no conjunctival injection, and symmetrical lids HENT: Atraumatic external nose and ears. Moist mucous membranes. Neck: Symmetric, trachea midline, No thyromegaly. CVS: RRR, No murmurs or gallops. Peripheral pulses 2+ and equal in all extremities RESP: Unlabored respiratory effort. Clear to auscultation bilaterally. GI: Diffuse abdominal tenderness, Nondistended, No rebound or guarding. MSK:Extremities w/o deformity, Normal Active ROM Skin: Warm, Dry. No rashes or lesions. Neuro: Normal Muscle tone, No focal neurological deficits. Psych: Awake, Alert, & Oriented x3. Appropriate mood and affect. Const: Vital Signs, click to edit/add: Vital Signs - 24 hr 02/18/25 12:50 02/18/25 13:50 02/18/25 17:24 Temperature 96 F L Pulse Rate 73 66 Pulse Rate [Pulse Oximeter] 75 Respiratory Rate 24 16 16 Blood Pressure 111/60 115/63 Blood Pressure [Ri ght Upper Arm] 110/76 Pulse Oximetry 96 98 95 Oxygen Delivery Me thod Room Air Room Air Room Air Course Vital Signs Vital signs: Initial Vital Signs Temperature 96 F L 02/18/25 12:50 Temperature Source Temporal Artery Scan 02/18/25 12:50 Pulse Rate 75 02/18/25 12:50 Respiratory Rate 24 02/18/25 12:50 Blood Pressure 110/76 02/18/25 12:50 Blood Pressure Mean 87 02/18/25 12:50 Blood Pressure Position Supine 02/18/25 12:50 Pulse Oximetry 96 02/18/25 12:50 Oxygen Delivery Method Room Air 02/18/25 12:50 Vital Signs Temperature 96 F L 02/18/25 12:50 Pulse Rate 75 02/18/25 12:50 Respiratory Rate 24 02/18/25 12:50 Blood Pressure 110/76 02/18/25 12:50 Pulse Oximetry 96 02/18/25 12:50 Oxygen Delivery Method Room Air 02/18/25 12:50 Temperature 96 F L 02/18/25 12:50 Pulse Rate 66 02/18/25 17:24 Respiratory Rate 16 02/18/25 17:24 Blood Pressure 115/63 02/18/25 17:24 Pulse Oximetry 95 02/18/25 17:24 Oxygen Delivery Method Room Air 02/18/25 17:24 Medications Administered Medications: Discontinued Medications Generic Name Dose Route Start Last Admin Trade Name Kervinq PRN Reason Stop Dose Admin Lactated Ringer's 1,000 mls @ 1,000 mls/hr 02/18/25 15:21 02/18/25 17:35 Lactated Ringers 1000 Ml IV 02/18/25 16:20 Infused .Q1H ONE Infusion MDM - Abdominal Pain MDM Narrative Medical decision making narrative: Patient is a 54-year-old female presenting to the emergency department for abdominal pain. Differential at this time include small-bowel obstruction, urinary tract infection, pancreatitis, gallbladder disease liver disease, diverticulitis, intra-abdominal abscess. She has a very broad differential considering the diffuse abdominal pain in the history of surgeries. Will do a CT scan for better evaluation. With her history of heart disease will do EKG and troponin also. Will look for signs of cardiac abnormalities causing her pain. Will check viral swabs having CBC, CMP, lipase, urinalysis. Patient's CBC does show an elevated white blood cell count of 13.71. Liver panel shows a normal bilirubin but he does have an elevated AST at 01:01, ALT at 80 symptom no loss of 167. EKG and troponin show no acute concerning abnormalities. Urinalysis shows no concerning abnormalities. Viral swabs are negative. She does have a slightly low sodium of 131 unlikely to be causing her symptoms. She has a lipase of 35,274 these symptoms are all likely from pancreatitis. With a known diagnosis of do not believe repeat troponin is necessary. CT scan interpreted by myself and the radiologist shows acute uncomplicated pancreatitis but there is concern for gallstone and possible cholecystitis. Unclear if this is from acute infection or if it is information from the nearby acute pancreatitis. I did speak to Dr. Hayes who recommends MRCP to be done if possible. This will be ordered. She has been given a L of fluid. Pain is under control at this time. MRCP shows signs of pancreatitis but no signs of cholelithiasis or choledocholithiasis. Gallbladder wall thickening very well may be secondary to the acute pancreatitis. Patient will be admitted to the hospitalist service. Lab Data Labs: Lab Results 02/18/25 02/18/25 02/18/25 Range/Units 12:58 13:18 13:53 WBC (4.50-11.00) K/uL RBC (4.00-5.20) m/uL Hgb (12.0-16.0) gm/dL Hct (33.0-51.0) % MCV (80-100) fL MCH (26-34) pg MCHC (32-36) gm/dL RDW Coeff of Jenifer (11.5-15.5) % Plt Count (140-440) K/uL Neut % (Auto) (42.0-72.0) % Lymph % (Auto) (20-44) % Nash % (Auto) (0.0-11.0) % Eos % (Auto) (0.0-7.0) % Baso % (Auto) (0.0-3.0) % Neut # (Auto) (1.7-7.0) K/uL Lymph # (Auto) (0.90-2.90) K/uL Nash # (Auto) (0.00-0.90) K/UL Eos # (Auto) (0.00-0.50) K/uL Baso # (Auto) (0.00-0.30) K/uL Abs Immat Gran (auto) (0.00-0.30) K/uL Imm/Tot Granulo (auto) % Sodium (135-149) mmol/L Potassium (3.6-5.1) mmol/L Chloride (96-114) mmol/L Carbon Dioxide (20-32) mmol/L Anion Gap (7-15) mEq/L BUN (7-30) mg/dL Creatinine (0.5-1.5) mg/dL Estimated Creat Clear Estimated GFR ml/min Glucose (60-115) mg/dL Calcium (8.4-10.6) mg/dL Total Bilirubin (0.1-1.5) mg/dL AST (12-35) U/L ALT (4-35) U/L Alkaline Phosphatase (40-150) U/L POC Troponin I High Sensi 5.7 (2.9-13.0) pg/mL Total Protein (6.0-8.3) g/dL Albumin (3.3-5.0) g/dL Lipase (23-300) U/L Urine Color Yellow (Yellow) Urine Appearance Clear (Clear) Urine pH 8.5 (5.0-8.5) Ur Specific [place] 1.015 (1.000-1.030) Urine Protein Negative (Negative) Urine Glucose (UA) Negative (Negative) Urine Ketones Negative (Negative) Urine Blood Negative (Negative) Urine Nitrite Negative (Negative) Urine Bilirubin Negative (Negative) Urine Urobilinogen 0.2 (0.2-1.0) Ur Leukocyte Esterase Negative (Negative) Urine RBC 0-2 (0-2) Urine WBC 0-2 (0-5) Ur Squamous Epith Cells Few (None-Few) Urine Bacteria Few A (None) SARS-CoV-2 (PCR) Negative SARS-CoV-2 (Negative) Influenza Type A (PCR) Negative PCR FLU A (Negative) Influenza Type B (PCR) Negative PCR FLU B (Negative) RSV (PCR) Negative PCR RSV (Negative) 02/18/25 Range/Units 14:03 WBC 13.71 H (4.50-11.00) K/uL RBC 4.65 (4.00-5.20) m/uL Hgb 14.2 (12.0-16.0) gm/dL Hct 44.6 (33.0-51.0) % MCV 96 (80-100) fL MCH 31 (26-34) pg MCHC 32 (32-36) gm/dL RDW Coeff of Jenifer 12.9 (11.5-15.5) % Plt Count 271 (140-440) K/uL Neut % (Auto) 80.3 H (42.0-72.0) % Lymph % (Auto) 10.6 L (20-44) % Nash % (Auto) 7.4 (0.0-11.0) % Eos % (Auto) 0.5 (0.0-7.0) % Baso % (Auto) 0.3 (0.0-3.0) % Neut # (Auto) 11.00 H (1.7-7.0) K/uL Lymph # (Auto) 1.50 (0.90-2.90) K/uL Nash # (Auto) 1.00 H (0.00-0.90) K/UL Eos # (Auto) 0.10 (0.00-0.50) K/uL Baso # (Auto) 0.00 (0.00-0.30) K/uL Abs Immat Gran (auto) 0.10 (0.00-0.30) K/uL Imm/Tot Granulo (auto) 0.9 % Sodium 131 L (135-149) mmol/L Potassium 3.9 (3.6-5.1) mmol/L Chloride 100 (96-114) mmol/L Carbon Dioxide 23 (20-32) mmol/L Anion Gap 8 (7-15) mEq/L BUN 10 (7-30) mg/dL Creatinine 0.7 (0.5-1.5) mg/dL Estimated Creat Clear 73.51 Estimated GFR 103 ml/min Glucose 82 (60-115) mg/dL Calcium 8.7 (8.4-10.6) mg/dL Total Bilirubin 0.6 (0.1-1.5) mg/dL AST 101 H (12-35) U/L ALT 87 H (4-35) U/L Alkaline Phosphatase 167 H (40-150) U/L POC Troponin I High Sensi (2.9-13.0) pg/mL Total Protein 6.3 (6.0-8.3) g/dL Albumin 3.9 (3.3-5.0) g/dL Lipase [id number] H (23-300) U/L Urine Color (Yellow) Urine Appearance (Clear) Urine pH (5.0-8.5) Ur Specific [place] (1.000-1.030) Urine Protein (Negative) Urine Glucose (UA) (Negative) Urine Ketones (Negative) Urine Blood (Negative) Urine Nitrite (Negative) Urine Bilirubin (Negative) Urine Urobilinogen (0.2-1.0) Ur Leukocyte Esterase (Negative) Urine RBC (0-2) Urine WBC (0-5) Ur Squamous Epith Cells (None-Few) Urine Bacteria (None) SARS-CoV-2 (PCR) (Negative) Influenza Type A (PCR) (Negative) Influenza Type B (PCR) (Negative) RSV (PCR) (Negative) Imaging Data CT scan abdomen and pelvis: Attestation: I have reviewed the pertinent imaging results. Radiologist's impression: 1. Acute uncomplicated interstitial pancreatitis. 2. Suspect small gallstones. This can be confirmed with ultrasound. 3. Gallbladder wall thickening may be secondary to acute pancreatitis. Differential diagnostic considerations include mild acute cholecystitis. No significant pericholecystic inflammatory changes. 4. Ileocolic resection. No associated complication. 5. Additional findings as above. Please note that all CT scans at this facility use dose modulation, iterative reconstruction, and/or weight-based dosing when appropriate to reduce radiation dose to as low as reasonably achievable. Dictated by Benito Jerry MD @ 02/18/2025 2:02:59 PM MRCP: Attestation: I have reviewed the pertinent imaging results. Radiologist's impression: Preliminary Report: INDICATION: ABD PAIN. (Sic) Same day abdominopelvic CT shows findings of acute pancreatitis and possible cholelithiasis. COMPARISON: Same day abdominopelvic CT. PRELIMINARY FINDINGS: 1. No evidence of cholelithiasis or choledocholithiasis. Nondilated biliary tree. 2. Redemonstration of peripancreatic and pancreatic parenchymal edema consistent with acute interstitial pancreatitis. Nondilated pancreatic duct. No evidence of pancreas divisum. 3. Redemonstration of gallbladder wall thickening which could be secondary to acute pancreatitis. 4. Small volume bilateral subphrenic ascites. THIS IS A PRELIMINARY REPORT. FINAL REPORT TO BE ISSUED BY THE APPROPRIATE SUBSPECIALITY SECTION OF THE DEPARTMENT. Dictated by Benito Jerry MD @ 02/18/2025 5:52:23 PM ECG Data Attestation: I personally reviewed and interpreted this ECG as follows: Prior ECG tracings: available for review Interpretation: Normal sinus rhythm with a rate of 68 beats per minute, normal intervals, normal axis, no ST or T-wave abnormalities. Appears similar to previous EKG on file. Discharge Plan Discharge Clinical Impression: Pancreatitis Qualifiers: Chronicity: acute Pancreatitis type: unspecified pancreatitis type Acute pancreatitis complication: no infection or necrosis Qualified Code(s): K85.90 - Acute pancreatitis without necrosis or infection, unspecified Patient Disposition: Admitted As Inpatient Condition: Guarded
[2025-02-18 13:41] LABS: PCR FLU A Negative PCR FLU A (Negative); PCR FLU B Negative PCR FLU B (Negative); PCR RSV Negative PCR RSV (Negative); SARS PCR* Negative SARS-CoV-2 (Negative)
[2025-02-18 13:50] VITALS: BP 111/60; PULSE 73; RESP 16; O2SAT 98
[2025-02-18 13:59] LABS: Appearance Urine Clear (Clear)
[2025-02-18 14:26] LABS: Albumin* 3.9 g/dL (3.3-5.0); Chloride* 100 mmol/L (96-114)
[2025-02-18 14:27] LABS: Potassium* 3.9 mmol/L (3.6-5.1); Sodium* 131 mmol/L (135-149)
[2025-02-18 14:29] LABS: Alanine Aminotransferase* 87 U/L (4-35); Alkaline Phosphatase* 167 U/L (40-150); Anion Gap 8 mEq/L (7-15); Aspartate Amino Transferase* 101 U/L (12-35); Bilirubin Total* 0.6 mg/dL (0.1-1.5); Blood Urea Nitrogen* 10 mg/dL (7-30); Carbon Dioxide* 23 mmol/L (20-32); Creatinine* 0.7 mg/dL (0.5-1.5); Est. Creatinine Clearance* 73.51; Estimated Glomerular Filt Rate 103 ml/min; Total Protein* 6.3 g/dL (6.0-8.3)
[2025-02-18 14:30] LABS: Calcium* 8.7 mg/dL (8.4-10.6); Glucose* 82 mg/dL (60-115)
[2025-02-18 14:56] LABS: Hematocrit* 44.6 % (33.0-51.0); Hemoglobin* 14.2 gm/dL (12.0-16.0); Immature Granulocytes Pct Auto 0.9 %; Mean Corpuscular HGB Conc 32 gm/dL (32-36); Mean Corpuscular Hemoglobin 31 pg (26-34); Mean Corpuscular Volume 96 fL (80-100); RDW Coefficient of Variation % 12.9 % (11.5-15.5); Red Blood Count* 4.65 m/uL (4.00-5.20); White Blood Count* 13.71 K/uL (4.50-11.00)
[2025-02-18 14:57] LABS: Immature Granulocytes Abs Auto 0.10 K/uL (0.00-0.30); Lymphocytes Absolute Auto 1.50 K/uL (0.90-2.90); Slide Review Reflex No
[2025-02-18] MEDS: LACTATED RINGERS 1000 ML 1,000 ML IV (15:37)
--- NOTE | 2025-02-18 16:15 | CRLHL7_ITS ---
For Patients: As a result of the Century Cures Act, medical imaging exams and procedure reports are released immediately into your electronic medical record. You may view this report before your referring provider. If you have questions, please contact your health care provider. INDICATION: Abdominal pain TECHNIQUE: 1.5 T MRI of the abdomen was performed with T2 weighted imaging; in and out of phase imaging; 3D MRCP imaging was obtained. No intravenous contrast was administered COMPARISON: Same day CT abdomen pelvis FINDINGS: Lungs: The lung bases are clear. No pleural or pericardial effusion. Liver: Hepatic steatosis Biliary tree and gallbladder: Fluid-filled gallbladder without stones. Gallbladder wall thickening to 6 mm. No intrahepatic biliary dilation. Top-normal common bile duct measuring up to 6 mm, the tapers normally toward the ampulla. There may be layering sludge the ampulla (2/16) Spleen: Unremarkable Pancreas: Similar moderate peripancreatic stranding. No pancreatic duct dilation. No evidence of pancreas divisum. Small amount of non organized fluid at the pancreatic tail measuring 1.5 cm (8/17). Adrenal glands: Unremarkable. Kidneys and ureters: No definite renal masses or hydronephrosis. GI tract: No evidence of obstruction or inflammation. Vasculature: The IVC and aorta are normal in caliber. Lymph nodes: No lymphadenopathy. Abdominal wall: Unremarkable Peritoneum: Trace free fluid in the bilateral upper quadrants Bones: Bone marrow signal is within normal limits. IMPRESSION: 1. Similar findings of acute interstitial pancreatitis. Small non-organized peripancreatic fluid collection at the tail measuring 1.5 cm. 2. Top-normal common bile duct without evidence of choledocholithiasis, however there may be layering sludge at the ampulla. 3. Gallbladder wall thickening is likely reactive. No cholelithiasis. 4. Hepatic steatosis Dictated by Marisol Turk MD @ 02/19/2025 7:38:22 AM (Electronically Signed)
[2025-02-18 17:24] VITALS: BP 115/63; PULSE 66; RESP 16; O2SAT 95
[2025-02-18 19:06] VITALS: BP 110/76; PULSE 77; RESP 16; TEMP 36.4; O2SAT 97
--- NOTE | 2025-02-18 20:03 | PM.IMHP1 ---
Assessment and Plan Assessment and plan (1) Acute pancreatitis: Problem comment: -Patient denies alcohol use. MRCP showed no evidence of cholelithiasis or choledocholithiasis. checked triglyceride level: 87. -patient is on semaglutide. Acute pancreatitis was observed with semaglutide at rates similar to placebo during the SUSTAIN-6 trial. However Pancreatitis associated with GLP 1 agonists might present with atypical presentation, therefore the prevalence might be underreported, and other database studies have also shown conflicting results. (from the [place] [employer] of gastroenterology). -CT scan showed acute interstitial pancreatitis & Gallbladder wall thickening may be secondary to acute pancreatitis. Differential diagnostic considerations include mild acute cholecystitis. -ED provider contacted our surgeon who recommended MRCP which showed No evidence of cholelithiasis or choledocholithiasis. Nondilated biliary tree. Redemonstration of peripancreatic and pancreatic parenchymal edema consistent with acute interstitial pancreatitis. Nondilated pancreatic duct. No evidence of pancreas divisum. Redemonstration of gallbladder wall thickening which could be secondary to acute pancreatitis. -CT scan and MRCP showed gallbladder wall thickening which could be related to mild acute cholecystitis versus secondary to acute pancreatitis, mildly elevated WBCs noted. Thus we will start her on Zosyn for now. -patient received 1L IV fluids bolus at the ED. Will put her on maintenance IV fluid 150 cc/hr, with monitoring for fluid overload as patient has history of heart failure with reduced ejection fraction. -pain management -follow-up recommendations from the surgeon Status: Acute (2) Obesity: Problem comment: Pt is on Semaglutide to Tx Obesity. Discussed with the patient that there might be an association between semaglutide and pancreatitis. Status: Acute (3) Left ventricular mural thrombus: Problem comment: Currently patient is on warfarin & Plavix warfarin 7.5 mg daily except for Wednesdays when she is to take 5 mg instead INR goal of 2-3 Patient has an appointment with her legal instruments examiner on MondayFebruary 24. I contacted Dr. Nunu villar if she wants to hold warfarin for now and she said it is better to be held for now. Will start patient on therapeutic enoxaparin 100sq bid. Status: Acute (4) Heart failure with reduced ejection fraction: Problem comment: -Echo at our facility back in May 2023 showed reduced ejection fraction of 40-45% - Reviewing the epic chart, echo done today February 18, Final Impressions: 1. Normal LV size, normal wall thickness, normal global systolic function with an estimated EF of 55 - 60%. 2. Apical akinesis, but could not assess for thrombus due to the ability to give contrast. Status: Acute (5) Anterior myocardial infarction: Problem comment: -Noted on 05/23/23, but it is suspected that ND occurred when she had her hemicolectomy. She had new onset atrial flutter on 05/22, subsequently given adenosine, metoprolol and ultimately digoxin and converted to sinus rhythm. Status: Acute (6) S/P right hemicolectomy: Problem comment: -history of right hemicolectomy with multiple complications postoperatively including left ventricular mural thrombus and right celiac artery thrombosis -open right hemicolectomy for perforated appendicitis. Procedure was performed on 05/12/2023. Status: Acute (7) Thrombosis of right iliac artery: Problem comment: Patient states that she was told it was resolved Status: Acute (8) On warfarin therapy: Problem comment: As above Status: Acute Total Time Spent Total Time Spent: Time spent: Today I spent 75 minutes seeing the patient, discussing the patient with ER staff, reviewing Expanse and EPIC notes/diagnostics, discussing the care plan with our care time that includes social work, PT/OT, pharmacy, RT, long term and documenting my impressions and plan in the medical record. Hospitalist- H&P: HPI History of Present Illness Date Seen: 02/18/25 Chief complaint: Abdominal pain Narrative: Regina Saleem is a 54 year old female patient with past medical history of hypertension, hyperlipidemia, Hx of HFrEF, ND, obesity, history of right hemicolectomy with multiple complications postoperatively including left ventricular mural thrombus and right celiac artery thrombosis who presents with severe diffuse abdominal pain without nausea or vomiting that started today. In addition, patient mentioned that she was belching a lot. last bowel movement was yesterday evening and it was normal. Patient was found to have acute pancreatitis. patient denies history of acute pancreatitis or history of abdominal pain related to food. She denies alcohol use. Patient is currently on warfarin 7.5 mg daily except for Wednesdays when she is to take 5 mg instead. She mentioned that she has done an echo today but because of pain she is not sure if the study was complete. Her previous echo showed reduced ejection fraction of 45%. She has an appointment with her legal instruments examiner on MondayFebruary 24. at the ED, patient was hemodynamically stable. WBCs mildly elevated at 13.5. Lipase was severely elevated more than [address] scan showed acute interstitial pancreatitis & Gallbladder wall thickening may be secondary to acute pancreatitis. Differential diagnostic considerations include mild acute cholecystitis. ED provider contacted our surgeon who recommended MRCP which showed No evidence of cholelithiasis or choledocholithiasis. Nondilated biliary tree. Redemonstration of peripancreatic and pancreatic parenchymal edema consistent with acute interstitial pancreatitis. Nondilated pancreatic duct. No evidence of pancreas divisum. Redemonstration of gallbladder wall thickening which could be secondary to acute pancreatitis. N.B Pt is on Semaglutide to Tx Obesity. Review of Systems Status of ROS: Reports: 6 or more systems reviewed and unremarkable except as noted in History and below Medical Decision Making Medical Decision Making Has patient completed a Health Care Directive: Yes [facility] Medical History (Updated 02/18/25 @ 22:08 by Kavita Davidson MD) Obesity ?E66.9 - Obesity, unspecified (ICD-10) On warfarin therapy ?Z79.01 - care home (current) use of anticoagulants (ICD-10) Left ventricular mural thrombus ?I51.3 - Intracardiac thrombosis, not elsewhere classified (ICD-10) Thrombosis of right iliac artery ?I74.5 - Embolism and thrombosis of iliac artery (ICD-10) Acute appendicitis ?K35.80 - Unspecified acute appendicitis (ICD-10) Morbid obesity with BMI of 40.0-44.9, adult ?E66.01 - Morbid (severe) obesity due to excess calories (ICD-10) ?Z68.41 - Body mass index [BMI] 40.0-44.9, adult (ICD-10) Recurrent low back pain ?M54.50 - Low back pain, unspecified (ICD-10) Acute back pain ?M54.9 - Dorsalgia, unspecified (ICD-10) Surgical History (Updated 02/18/25 @ 21:19 by Kavita Davidson MD) S/P right hemicolectomy ?Z90.49 - Acquired absence of other specified parts of digestive tract (ICD-10) S/P tonsillectomy ?Z90.89 - Acquired absence of other organs (ICD-10) Social History Narrative: Admits to smoking and drinking alcohol at least twice a week. 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 What is your current living situation?: I presently have a place to live Problems where you live: no known problems Problems where you live details: N/A In the past 12 months, utilities in danger of being shut off: no In past 12 months, lack of transportation kept you from medical appts, meetings, work, or getting things needed for daily living: no In the past 12 mos, have been you worried that your food would run out before you had money to buy more?: never true In the past 12 mos, the food you bought just didn't last and you didn't have money to buy more?: never true Highest level of school completed/degree received: Bachelor's degree Smoking Status: Former smoker What tobacco products do you use: cigarettes Years smoked: 30 Smoking quit date/years: <= 15 years ago Do you use any of these nicotine containing products: None Second hand tobacco smoke exposure: No How often do you have a drink containing alcohol: never How often do you have six or more drinks on one occasion: Never AUDIT-C Alcohol total score: 0 Non-prescribed substance use: denies use Caffeine: Yes (2-3 coffees daily) How often does anyone, including family, friends and others, physically hurt you: never How often does anyone, including family, friends and others, insult or talk down to you: never How often does anyone, including family, friends and others, threaten you with harm: never How often does anyone, including family, friends and others, scream or curse at you: never service: No Meds Home Medications and Allergies Home Medications ?Medication ?Instructions ?Recorded ?Confirmed ?Type hydrocodone 5 mg-acetaminophen 325 1 tab PO Q6H PRN pain 05/21/23 05/21/23 History mg tablet atorvastatin 40 mg tablet 40 mg PO DAILY 03/06/24 03/06/24 History clopidogrel 75 mg tablet 75 mg PO DAILY 03/06/24 03/06/24 History duloxetine 30 mg capsule,delayed mg PO 03/06/24 History release duloxetine 60 mg capsule,delayed 60 mg PO DAILY 03/06/24 03/06/24 History release ezetimibe 10 mg tablet 10 mg PO DAILY 03/06/24 03/06/24 History lisinopril 2.5 mg tablet 2.5 mg PO DAILY 03/06/24 03/06/24 History metoprolol succinate 25 mg capsule 25 mg PO DAILY 03/06/24 03/06/24 History sprinkle, ext. release 24 hr (Kapspargo Sprinkle) nicotine 14 mg/24 hr daily 1 patch topical DAILY 03/06/24 03/06/24 History transdermal patch pantoprazole 40 mg tablet,delayed 40 mg PO DAILY 03/06/24 03/06/24 History release warfarin 5 mg tablet mg PO 03/06/24 History Allergies Allergy/AdvReac Type Severity Reaction Status Date / Time venom-wasp Allergy Mild Rash Verified 02/18/25 13:49 Exam Narrative: Exam Narrative: Physical exam GENERAL: Comfortable, no acute distress, obesity. HEAD AND NECK: Atraumatic, normocephalic CARDIOVASCULAR: RRR. Normal S1, S2. No murmurs. RESPIRATORY: Clear to auscultation B/L. Good air entry B/L. No wheezes or rhonchi. GASTROINTESTINAL: obese, tender to palpation diffusely and specially in the epigastric area. Soft, no rigidity. NEUROLOGY: Alert, awake, oriented X 3. Normal speech. PSYCH: Normal mood, normal affect. Const: Vital Signs, click to edit/add: Vital Signs - 24 hr 02/18/25 12:50 02/18/25 13:50 02/18/25 17:24 Temperature 96 F L Pulse Rate 73 66 Pulse Rate [Pulse Oximeter] 75 Pulse Rate [Right Radial] Respiratory Rate 24 16 16 Blood Pressure 111/60 115/63 Blood Pressure [Le ft Arm] Blood Pressure [Ri ght Upper Arm] 110/76 Pulse Oximetry 96 98 95 Oxygen Delivery Me thod Room Air Room Air Room Air 02/18/25 19:06 Temperature 97.5 F L Pulse Rate Pulse Rate [Pulse Oximeter] Pulse Rate [Right Radial] 77 Respiratory Rate 16 Blood Pressure Blood Pressure [Le ft Arm] 110/76 Blood Pressure [Ri ght Upper Arm] Pulse Oximetry 97 Oxygen Delivery Me thod Room Air Hospitalist - H&P: Result Labs Labs: Short CBC 02/18/25 Range/Units 14:03 WBC 13.71 H (4.50-11.00) K/uL Hgb 14.2 (12.0-16.0) gm/dL Hct 44.6 (33.0-51.0) % Plt Count 271 (140-440) K/uL BMP 02/18/25 14:03 Sodium 131 L Potassium 3.9 Chloride 100 Carbon Dioxide 23 BUN 10 Creatinine 0.7 Glucose 82 Calcium 8.7 Liver Function 02/18/25 Range/Units 14:03 Total Bilirubin 0.6 (0.1-1.5) mg/dL AST 101 H (12-35) U/L ALT 87 H (4-35) U/L Alkaline Phosphatase 167 H (40-150) U/L Albumin 3.9 (3.3-5.0) g/dL Urine 02/18/25 Range/Units 13:53 Urine Color Yellow (Yellow) Urine Appearance Clear (Clear) Urine pH 8.5 (5.0-8.5) Ur Specific Morgan 1.015 (1.000-1.030) Urine Protein Negative (Negative) Urine Glucose (UA) Negative (Negative) Imaging CT Chest/Ab/Pelvis: Radiologist's impression: INDICATION: Diffuse abdominal pain, previous appendectomy. (Sic) COMPARISON: None available. TECHNIQUE: CT of the abdomen and pelvis with 95 cc of Isovue 370 intravenous contrast. Please note that all CT scans at this facility use dose modulation, iterative reconstruction, and/or weight-based dosing when appropriate to reduce radiation dose to as low as reasonably achievable. FINDINGS: ABDOMEN Liver: Normal contour and attenuation. Diffuse steatosis. Focal fatty infiltration. No significant focal lesion. No intrahepatic biliary ductal dilatation. Patent portal veins. Patent hepatic veins. Portal veins are not uniformly enhanced on the early hepatic arterial phase study. Hepatic veins are not enhanced on this hepatic arterial phase exam. Gallbladder: Nondistended. Suspected cholelithiasis (series 2; image 49). Mild gallbladder wall thickening. In this patient with peripancreatic fat stranding consistent with pancreatitis findings are suspicious for gallstone pancreatitis and secondary wall thickening of the gallbladder. Acute cholecystitis is also included in the differential diagnosis. Normal common duct caliber. Pancreas: Normal contour and attenuation. Note that discrimination between acute interstitial edematous pancreatitis and necrotizing pancreatitis is limited if symptom onset is less than 3-5 days prior to imaging. Inflammatory fat stranding surrounds the pancreatic head, neck and adjacent 2nd and 3rd duodenal segments. Findings are consistent with acute uncomplicated interstitial pancreatitis. No significant focal lesion. Nondilated duct. Spleen: Not enlarged. No significant focal lesion. Patent splenic artery and vein. Adrenal Glands: Symmetrical adrenal glands. No significant focal lesion. Kidneys: Normal bilateral renal attenuation. No significant focal lesion. Likely benign too small to characterize cyst in the posterior interpolar left renal cortex for which no further workup is indicated per ACR White Paper guidelines (2; 47). No nephrolith. No dilatation of the intrarenal collecting systems. No ureteral stone. Nondilated ureters. Patent renal arteries and veins. Gastrointestinal tract: Ileocecal resection. Nondilated bowel.. Vascular: Chronic mild aortoiliac atherosclerotic mural calcification. Abdominal aorta and its major proximal branches including the celiac, superior mesenteric, inferior mesenteric, renal, and bilateral common iliac arteries are patent. Patent superior mesenteric vein. Peritoneal Cavity/Retroperitoneum: No ascites. No adenopathy. PELVIS No bladder lesion is identified. Anteverted retroflexed uterus. Posterior uterine subserosal fibroid measuring 1.5 cm (2; 15). No significant ascites. Small volume low density pelvic ascites within physiologic limits of normal. No adenopathy. SKELETON AND BODY WALL Findings consistent with postsurgical changes in the periumbilical anterior abdominal wall. Supraumbilical anterior midline abdominal wall bulge into which the mid transverse colon protrudes consistent with a wide neck epigastric hernia (2; 66). Infiltration of the subcutaneous fat in the mid clavicular line of the infraumbilical anterior abdominal wall could be due to subcutaneously administered injections at these locations. Please correlate with the patient`s history. LOWER THORAX Partially included lower thoracic wall, lungs, pleural spaces and mediastinum are without significant incidental findings. IMPRESSION: 1. Acute uncomplicated interstitial pancreatitis. 2. Suspect small gallstones. This can be confirmed with ultrasound. 3. Gallbladder wall thickening may be secondary to acute pancreatitis. Differential diagnostic considerations include mild acute cholecystitis. No significant pericholecystic inflammatory changes. 4. Ileocolic resection. No associated complication. 5. Additional findings as above. Please note that all CT scans at this facility use dose modulation, iterative reconstruction, and/or weight-based dosing when appropriate to reduce radiation dose to as low as reasonably achievable. Dictated by Benito Jerry MD @ 02/18/2025 2:02:59 PM ----- ADDENDUM ----- ADDENDUM: Please note the CORRECTED description of the liver in the body of the report as follows: Liver: Normal contour and attenuation. No significant focal lesion. No intrahepatic biliary ductal dilatation. Patent portal veins. Patent hepatic veins. Dictated by Benito Jerry MD @ Feb 18 2025 5:49PM (Electronically Signed) For Patients: As a result of the Cures Act, medical imaging exams and procedure reports are released immediately into your electronic medical record. You may view this report before your referring provider. If you have questions, please contact your health care provider. INDICATION: Diffuse abdominal pain, previous appendectomy. (Sic) COMPARISON: None available. TECHNIQUE: CT of the abdomen and pelvis with 95 cc of Isovue 370 intravenous contrast. Please note that all CT scans at this facility use dose modulation, iterative reconstruction, and/or weight-based dosing when appropriate to reduce radiation dose to as low as reasonably achievable. FINDINGS: ABDOMEN Liver: Normal contour and attenuation. Diffuse steatosis. Focal fatty infiltration. No significant focal lesion. No intrahepatic biliary ductal dilatation. Patent portal veins. Patent hepatic veins. Portal veins are not uniformly enhanced on the early hepatic arterial phase study. Hepatic veins are not enhanced on this hepatic arterial phase exam. Gallbladder: Nondistended. Suspected cholelithiasis (series 2; image 49). Mild gallbladder wall thickening. In this patient with peripancreatic fat stranding consistent with pancreatitis findings are suspicious for gallstone pancreatitis and secondary wall thickening of the gallbladder. Acute cholecystitis is also included in the differential diagnosis. Normal common duct caliber. Pancreas: Normal contour and attenuation. Note that discrimination between acute interstitial edematous pancreatitis and necrotizing pancreatitis is limited if symptom onset is less than 3-5 days prior to imaging. Inflammatory fat stranding surrounds the pancreatic head, neck and adjacent 2nd and 3rd duodenal segments. Findings are consistent with acute uncomplicated interstitial pancreatitis. No significant focal lesion. Nondilated duct. Spleen: Not enlarged. No significant focal lesion. Patent splenic artery and vein. Adrenal Glands: Symmetrical adrenal glands. No significant focal lesion. Kidneys: Normal bilateral renal attenuation. No significant focal lesion. Likely benign too small to characterize cyst in the posterior interpolar left renal cortex for which no further workup is indicated per ACR White Paper guidelines (2; 47). No nephrolith. No dilatation of the intrarenal collecting systems. No ureteral stone. Nondilated ureters. Patent renal arteries and veins. Gastrointestinal tract: Ileocecal resection. Nondilated bowel.. Vascular: Chronic mild aortoiliac atherosclerotic mural calcification. Abdominal aorta and its major proximal branches including the celiac, superior mesenteric, inferior mesenteric, renal, and bilateral common iliac arteries are patent. Patent superior mesenteric vein. Peritoneal Cavity/Retroperitoneum: No ascites. No adenopathy. PELVIS No bladder lesion is identified. Anteverted retroflexed uterus. Posterior uterine subserosal fibroid measuring 1.5 cm (2; 15). No significant ascites. Small volume low density pelvic ascites within physiologic limits of normal. No adenopathy. SKELETON AND BODY WALL Findings consistent with postsurgical changes in the periumbilical anterior abdominal wall. Supraumbilical anterior midline abdominal wall bulge into which the mid transverse colon protrudes consistent with a wide neck epigastric hernia (2; 66). Infiltration of the subcutaneous fat in the mid clavicular line of the infraumbilical anterior abdominal wall could be due to subcutaneously administered injections at these locations. Please correlate with the patient`s history. LOWER THORAX Partially included lower thoracic wall, lungs, pleural spaces and mediastinum are without significant incidental findings. IMPRESSION: 1. Acute uncomplicated interstitial pancreatitis. 2. Suspect small gallstones. This can be confirmed with ultrasound. 3. Gallbladder wall thickening may be secondary to acute pancreatitis. Differential diagnostic considerations include mild acute cholecystitis. No significant pericholecystic inflammatory changes. 4. Ileocolic resection. No associated complication. 5. Additional findings as above. Please note that all CT scans at this facility use dose modulation, iterative reconstruction, and/or weight-based dosing when appropriate to reduce radiation dose to as low as reasonably achievable. Dictated by Benito Jerry MD @ 02/18/2025 2:02:59 PM (Electronically Signed)
[2025-02-18] MEDS: SODIUM CHLORIDE 0.9 % (FLUSH) 10 ML SYRINGE 5 ML IVF (20:09)
[2025-02-18] MEDS: MORPHINE 4 MG/ML INJ IVP (20:11)
[2025-02-18] MEDS: PIPERACILLIN/TAZOBACTAM 3.375 GM in 0.9 % SODIUM CHLORIDE Mini-bag 100 ML IVPB (20:16)
[2025-02-18 20:54] LABS: INR 2.57 (0.91-1.10); Prothrombin Time 28.7 Seconds
[2025-02-18 21:34] LABS: Triglycerides* 87 mg/dL (40-149)
[2025-02-18] MEDS: ENOXAPARIN 100 MG/ML INJ SUBCUT (21:43)
[2025-02-18] MEDS: ATORVASTATIN CALCIUM 40 MG TABLET PO (22:28)
[2025-02-18 23:00] VITALS: PULSE 82
[2025-02-18 23:33] VITALS: BP 98/60; PULSE 89; RESP 16; TEMP 36.3; O2SAT 96
[2025-02-19] VITALS (9 sets, daily range): BP systolic 97–119; BP diastolic 61–84; PULSE 78–86; RESP 16–18; TEMP 36.6–36.8; O2SAT 95–98
[2025-02-19] MEDS: PIPERACILLIN/TAZOBACTAM 3.375 GM in 0.9 % SODIUM CHLORIDE Mini-bag 100 ML IVPB ×4 (02:11→19:46)
--- NOTE | 2025-02-19 06:07 | PC.NURSE ---
Pt alert and oriented. Pt up with SBA.?Pt?complaints of pain ranging 3-7;see?EMAR for intervention.?Pt?NPO?at midnight.?
[2025-02-19 06:33] LABS: Lactate* 0.4 mmol/L (0.5-1.9)
[2025-02-19 06:38] LABS: Hematocrit* 35.6 % (33.0-51.0); Hemoglobin* 11.0 gm/dL (12.0-16.0); Mean Corpuscular HGB Conc 31 gm/dL (32-36); Mean Corpuscular Hemoglobin 30 pg (26-34); Mean Corpuscular Volume 97 fL (80-100); Red Blood Count* 3.66 m/uL (4.00-5.20); White Blood Count* 6.03 K/uL (4.50-11.00)
[2025-02-19 06:49] LABS: Slide Review Reflex No
[2025-02-19 06:51] LABS: Albumin* 3.2 g/dL (3.3-5.0); Chloride* 106 mmol/L (96-114); Potassium* 4.2 mmol/L (3.6-5.1); Sodium* 135 mmol/L (135-149)
[2025-02-19 06:53] LABS: Blood Urea Nitrogen* 8 mg/dL (7-30); Creatinine* 0.8 mg/dL (0.5-1.5); Est. Creatinine Clearance* 64.32; Estimated Glomerular Filt Rate 88 ml/min
[2025-02-19 06:54] LABS: Alanine Aminotransferase* 169 U/L (4-35); Alkaline Phosphatase* 175 U/L (40-150); Anion Gap 4 mEq/L (7-15); Aspartate Amino Transferase* 159 U/L (12-35); Bilirubin Direct* 0.6 mg/dL (0.0-0.5); Bilirubin Total* 1.0 mg/dL (0.1-1.5); Calcium* 8.4 mg/dL (8.4-10.6); Carbon Dioxide* 25 mmol/L (20-32); Glucose* 108 mg/dL (60-115); Total Protein* 5.5 g/dL (6.0-8.3)
[2025-02-19 07:11] LABS: Procalcitonin* 0.36 ng/mL (<0.50)
[2025-02-19] MEDS: CLOPIDOGREL 75 MG TABLET PO (08:35)
[2025-02-19] MEDS: DULOXETINE 30 MG CAPSULE DR 120 MG PO (08:36)
[2025-02-19] MEDS: OMEPRAZOLE 20 MG CAPSULE DR 40 MG PO (08:36)
[2025-02-19] MEDS: EZETIMIBE 10 MG TABLET PO (08:37)
--- NOTE | 2025-02-19 09:20 | PM.GSCN ---
History of Present Illness Consult details Date Seen: 02/19/25 Consult date: 02/19/25 Narrative: The patient is a 54-year-old female who presented to the emergency department yesterday with diffuse abdominal pain. She states that yesterday morning she had pain that was located all over her abdomen. This was fairly severe. She was hungry and therefore thought that if she ate it would help. This did not result in any change of her symptoms. She did have to present to the [facility] for a scheduled echocardiogram and a blood draw. She went there, however she was too uncomfortable during the procedure to complete it. Because she was feeling dizzy and lightheaded when she sat up, a rapid response was called and she was sent to the emergency department. In the emergency department she underwent workup which revealed pancreatitis. She did receive pain medication and felt much better. Overnight she has not required any pain medication and she feels significantly better today but is still somewhat sore in her upper abdomen. She has been belching and states that she has had a similar issue in the past. She states that about 10 years ago she had an episode of abdominal discomfort with uncontrollable belching. This was not as severe as the episode today. A few weeks ago she also had similar symptoms but again not as severe. She denies any nausea. She has not vomited. No change in her bowel habits. Laying still makes the pain worse. Moving around in sitting up helps. She has a history remarkable for appendectomy for perforated appendicitis that converted to laparoscopic assisted ileocectomy back in May of 2023. She re-presented with intra-abdominal abscess, surgical site infection and was noted to have a right internal iliac artery thrombus. She then developed atrial fibrillation. An echo showed an apical infarct with a mural thrombus. She was then transferred to [facility]. She underwent IR drain placement for an enlarging abscess. [facility] Medical History (Updated 02/19/25 @ 15:52 by Jeni Hayes MD) Obesity ?E66.9 - Obesity, unspecified (ICD-10) On warfarin therapy ?Z79.01 - nursing home (current) use of anticoagulants (ICD-10) Left ventricular mural thrombus ?I51.3 - Intracardiac thrombosis, not elsewhere classified (ICD-10) Thrombosis of right iliac artery ?I74.5 - Embolism and thrombosis of iliac artery (ICD-10) Acute appendicitis ?K35.80 - Unspecified acute appendicitis (ICD-10) Morbid obesity with BMI of 40.0-44.9, adult ?E66.01 - Morbid (severe) obesity due to excess calories (ICD-10) ?Z68.41 - Body mass index [BMI] 40.0-44.9, adult (ICD-10) Recurrent low back pain ?M54.50 - Low back pain, unspecified (ICD-10) Acute back pain ?M54.9 - Dorsalgia, unspecified (ICD-10) Surgical History (Updated 02/19/25 @ 11:54 by Luci Montes PA-C) S/P right hemicolectomy ?Z90.49 - Acquired absence of other specified parts of digestive tract (ICD-10) S/P tonsillectomy ?Z90.89 - Acquired absence of other organs (ICD-10) Social History Narrative: Admits to smoking and drinking alcohol at least twice a week. 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 What is your current living situation?: I presently have a place to live Problems where you live: no known problems Problems where you live details: N/A In the past 12 months, utilities in danger of being shut off: no In past 12 months, lack of transportation kept you from medical appts, meetings, work, or getting things needed for daily living: no In the past 12 mos, have been you worried that your food would run out before you had money to buy more?: never true In the past 12 mos, the food you bought just didn't last and you didn't have money to buy more?: never true Highest level of school completed/degree received: Bachelor's degree Smoking Status: Former smoker What tobacco products do you use: cigarettes Years smoked: 30 Smoking quit date/years: <= 15 years ago Do you use any of these nicotine containing products: None Second hand tobacco smoke exposure: No How often do you have a drink containing alcohol: never How often do you have six or more drinks on one occasion: Never AUDIT-C Alcohol total score: 0 Non-prescribed substance use: denies use Caffeine: Yes (2-3 coffees daily) How often does anyone, including family, friends and others, physically hurt you: never How often does anyone, including family, friends and others, insult or talk down to you: never How often does anyone, including family, friends and others, threaten you with harm: never How often does anyone, including family, friends and others, scream or curse at you: never service: No Meds Home Medications and Allergies Home Medications ?Medication ?Instructions ?Recorded ?Confirmed ?Type atorvastatin 40 mg tablet 40 mg PO DAILY 03/06/24 02/19/25 History clopidogrel 75 mg tablet 75 mg PO DAILY 03/06/24 02/19/25 History duloxetine 60 mg capsule,delayed 120 mg PO DAILY 03/06/24 02/19/25 History release ezetimibe 10 mg tablet 10 mg PO DAILY 03/06/24 02/19/25 History lisinopril 2.5 mg tablet 2.5 mg PO DAILY 03/06/24 02/19/25 History nicotine 14 mg/24 hr daily 1 patch topical DAILY PRN 03/06/24 02/19/25 History transdermal patch pantoprazole 40 mg tablet,delayed 40 mg PO DAILY 03/06/24 02/19/25 History release warfarin 5 mg tablet 5 - 7.5 mg PO QPM 03/06/24 02/19/25 History bupropion HCl 300 mg 24 hr tablet, 300 mg PO DAILY 02/19/25 02/19/25 History extended release metoprolol succinate 50 mg 50 mg PO DAILY 02/19/25 02/19/25 History tablet,extended release 24 hr semaglutide (weight loss) 1.7 1.7 mg subcut WE 02/19/25 02/19/25 History mg/0.75 mL subcutaneous pen injector (Wegovy) Allergies Allergy/AdvReac Type Severity Reaction Status Date / Time venom-wasp Allergy Mild Rash Verified 02/18/25 13:49 Exam Narrative: Exam Narrative: General appearance: Alert, cooperative, and in no distress Eyes: PERRLA, eye lids clear, and sclera white HENT Head: Normocephalic Ears: External ears normal Pulmonary: Breathing nonlabored on room air Cardiovascular Heart: Regular rate Extremities: warm and well perfused Gastrointestinal Abdominal: Protuberant, scars consistent with surgical history. Patient has a periumbilical midline scar. She is tender across the upper abdomen. Slightly more in the epigastrium and the right as opposed to the left. Musculoskeletal: Extremities: Upper: Both upper extremities have normal joint range of motion and intact strength. Lower: Both lower extremities have normal joint range of motion and intact strength. Skin: Normal skin color, texture, and turgor. Neurologic: No focal deficits Psychiatric: Alert, oriented, cooperative, normal affect. Const: Vital Signs, click to edit/add: Vital Signs - 24 hr 02/18/25 12:50 02/18/25 13:50 02/18/25 17:24 Temperature 96 F L Pulse Rate 73 66 Pulse Rate [Pulse Oximeter] 75 Pulse Rate [Right Radial] Respiratory Rate 24 16 16 Blood Pressure 111/60 115/63 Blood Pressure [Le ft Arm] Blood Pressure [Ri ght Upper Arm] 110/76 Pulse Oximetry 96 98 95 Oxygen Delivery Me thod Room Air Room Air Room Air 02/18/25 19:06 02/18/25 23:00 02/18/25 23:33 Temperature 97.5 F L 97.4 F L Pulse Rate 82 Pulse Rate [Pulse Oximeter] 89 Pulse Rate [Right Radial] 77 Respiratory Rate 16 16 Blood Pressure Blood Pressure [Le ft Arm] 110/76 98/60 Blood Pressure [Ri ght Upper Arm] Pulse Oximetry 97 96 Oxygen Delivery Me thod Room Air Room Air 02/19/25 02:55 02/19/25 08:33 Temperature 97.9 F Pulse Rate Pulse Rate [Pulse Oximeter] 86 78 Pulse Rate [Right Radial] Respiratory Rate 16 18 Blood Pressure Blood Pressure [Le ft Arm] 97/63 115/68 Blood Pressure [Ri ght Upper Arm] Pulse Oximetry 97 97 Oxygen Delivery Me thod Room Air Room Air Results Labs Labs: White blood cell count is 6 from 13 Hemoglobin 11 from 14 Platelets 290 INR on admission 2.57 Electrolytes within normal limits Total bilirubin: 1.0 from 0.6 Direct bilirubin: 0.6 AST: 159 from 101 ALT: 169 from 87 CRP 3.2 Lipase 9600 from 35,[address] scan report/results: report reviewed and image reviewed Additional studies: CT abdomen and pelvis 02/18/2025: IMPRESSION: 1. Acute uncomplicated interstitial pancreatitis. 2. Suspect small gallstones. This can be confirmed with ultrasound. 3. Gallbladder wall thickening may be secondary to acute pancreatitis. Differential diagnostic considerations include mild acute cholecystitis. No significant pericholecystic inflammatory changes. 4. Ileocolic resection. No associated complication. 5. Additional findings as above. Dictated by Benito Jerry MD @ 02/18/2025 2:02:59 PM MRCP 02/18/2025 IMPRESSION: 1. Similar findings of acute interstitial pancreatitis. Small non-organized peripancreatic fluid collection at the tail measuring 1.5 cm. 2. Top-normal common bile duct without evidence of choledocholithiasis, however there may be layering sludge at the ampulla. 3. Gallbladder wall thickening is likely reactive. No cholelithiasis. 4. Hepatic steatosis Dictated by Marisol Turk MD @ 02/19/2025 7:38:22 AM Echocardiogram done at [facility] yesterday results reviewed Ejection fraction has improved to 55% from 45% last year. She continues to have apical akinesis. Unable to assess for thrombus secondary to inability to give contrast because of patient's symptoms. Progress Note:A&P Assessment and plan (1) Obesity: Status: Acute (2) Heart failure with reduced ejection fraction: Status: Acute (3) On warfarin therapy: Status: Acute (4) Left ventricular mural thrombus: Status: Acute (5) Acute pancreatitis: Status: Acute (6) Elevated liver function tests: Status: Acute Plan The patient is a 54-year-old female with acute pancreatitis of uncertain etiology. Certainly in her case the most likely cause is gallstones. None are seen on ultrasound or MRI though there is some question of sludge on the MRI near the ampulla. Given that she does have concomitant LFT elevation; she did have elevated alkaline phosphatase and ALT back in July of this year, it seems as though she might have passed stones or sludge that could have led to this episode. I discussed with her the pathology of choledocholithiasis and gallstone pancreatitis. We discussed that the 1st step is to ensure that she does not have a blockage of the bile duct. I think if her tests continued to trend down tomorrow and her pain continues to improve then we will it is possible she passed a stone. We discussed that cholecystectomy is recommended to decrease recurrence. She is understandably somewhat hesitant to proceed with surgery given that the diagnosis isn't totally clear and also because she had so many complications from her appendectomy. She would like to consider a 2nd opinion. I think that this is reasonable. 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 If her labs are to improve then I would recommend consultation with Gastroenterology for possible endoscopic ultrasound versus ERCP. The patient is agreeable with this plan. We will make copies of her imaging so that she can take them with her if she does see an outside opinion.
--- NOTE | 2025-02-19 11:05 | CRLHL7_ITS ---
For Patients: As a result of the Century Cures Act, medical imaging exams and procedure reports are released immediately into your electronic medical record. You may view this report before your referring provider. If you have questions, please contact your health care provider. INDICATION: Pancreatitis, sludge, increasing LFTs COMPARISON: Same day MRI abdomen and prior studies TECHNIQUE: Ultrasound abdomen, limited, gallbladder, utilizing grayscale and color Doppler FINDINGS: Gallbladder: No stones or sludge. No significant wall thickening (gallbladder wall measures 0.3 centimeters) or pericholecystic fluid. Negative sonographic Ruffin sign. Bile ducts: The common bile duct measures 6 mm in diameter. Imaged liver: Diffusely increased echogenicity consistent with hepatic steatosis without focal hepatic lesion. IMPRESSION: 1. No cholelithiasis or acute cholecystitis. 2. Hepatic steatosis. Dictated by Albert Fernandes MD @ 02/19/2025 12:14:03 PM (Electronically Signed)
--- NOTE | 2025-02-19 11:38 | P.IMPN_ITS ---
Assessment and Plan Assessment and plan (1) Acute pancreatitis: Problem comment: -Patient denies alcohol use. MRCP showed no evidence of cholelithiasis or choledocholithiasis. checked triglyceride level: 87. -patient is on semaglutide. Acute pancreatitis was observed with semaglutide at rates similar to placebo during the SUSTAIN-6 trial. However Pancreatitis associated with GLP 1 agonists might present with atypical presentation, therefore the prevalence might be underreported, and other database studies have also shown conflicting results. (from the [place] [employer] of gastroenterology). -CT scan showed acute interstitial pancreatitis & Gallbladder wall thickening may be secondary to acute pancreatitis. Differential diagnostic considerations include mild acute cholecystitis. -ED provider contacted our surgeon who recommended MRCP which showed No evidence of cholelithiasis or choledocholithiasis. Nondilated biliary tree. Redemonstration of peripancreatic and pancreatic parenchymal edema consistent with acute interstitial pancreatitis. Nondilated pancreatic duct. No evidence of pancreas divisum. Redemonstration of gallbladder wall thickening which could be secondary to acute pancreatitis. -CT scan and MRCP showed gallbladder wall thickening which could be related to mild acute cholecystitis versus secondary to acute pancreatitis, mildly elevated WBCs noted. Thus we will start her on Zosyn for now. -patient received 1L IV fluids bolus at the ED. Will put her on maintenance IV fluid 150 cc/hr, with monitoring for fluid overload as patient has history of heart failure with reduced ejection fraction. -pain management 02/19 pain has improved but persists. Has not taken any narcotics this morning. No nausea. Lipase significantly improved, 9600. LFTs rising slightly. Discussed with Dr. Hayes, General Surgery. Recommends gallbladder ultrasound then okay to start clear liquid diet. Decrease IVF and discontinue with adequate oral intake. Surgery will see her this afternoon after clinic. Continue Zosyn. Trend LFTs. Status: Acute (2) Obesity: Problem comment: -Pt is on Semaglutide to Tx Obesity. -Discussed with the patient that there might be an association between semaglutide and pancreatitis. Status: Acute (3) Left ventricular mural thrombus: Problem comment: -Currently patient is on warfarin & Plavix -warfarin 7.5 mg daily except for Wednesdays when she is to take 5 mg instead -INR goal of 2-3 -Patient has an appointment with her accreditation manager on MondayFebruary 24 - will discuss plavix at that appt -Per Dr. Eddy hold warfarin for now - start patient on therapeutic enoxaparin 100sq bid - 02/19 INR 2.57, hold this morning's enoxaparin dose. Continue Plavix. Discuss with surgery this afternoon when to resume warfarin (unless need for surgical intervention) -do not see evidence of Heme Onc consultation since this episode Status: Acute (4) Thrombosis of right iliac artery: Problem comment: -Patient states that she was told it was resolved Status: Acute (5) Anterior myocardial infarction: Problem comment: -suspected perioperative apical infarct with mural thrombus 05/23/2023 -suspected that NM occurred when she had her hemicolectomy following ruptured appendix. She had new onset atrial flutter on 05/22, subsequently given adenosine, metoprolol and ultimately digoxin and converted to sinus rhythm -has been on Plavix and Coumadin since (no stent) Status: Acute (6) On warfarin therapy: Problem comment: -holding until General Surgery assesses Status: Acute (7) Heart failure with reduced ejection fraction: Problem comment: -Echo at our facility back in May 2023 showed reduced ejection fraction of 40-45% - Reviewing the epic chart, echo done today February 18, Final Impressions: 1. Normal LV size, normal wall thickness, normal global systolic function with an estimated EF of 55 - 60%. 2. Apical akinesis, but could not assess for thrombus due to the ability to give contrast. Status: Acute (8) S/P right hemicolectomy: Problem comment: -open right hemicolectomy for perforated appendicitis, 05/12/2023 -multiple complications postoperatively including left ventricular mural thrombus and right celiac artery thrombosis Status: Acute Plan Gallbladder ultrasound. Start clear liquid diet. Monitor for increasing pain, nausea/vomiting. General surgery to see this afternoon. Hold warfarin until further recommendations. Total Time Spent Total Time Spent: Today I spent 65 minutes seeing the patient, reviewing Expanse and EPIC notes/diagnostics, discussing the care plan with our care time that includes social work, PT/OT, pharmacy, RT, care home and documenting my impressions and plan in the medical record. Subjective Date Seen: 02/19/25 Interval history: Patient is seen sitting up in bed this morning. Reports feeling better than on admission. Continues to have some abdominal pain and belching (which is common but worse than usual). Denies headache or dizziness. Has been NPO. Denies nausea. Remains afebrile. Lipase decreased to 9600 from > 35,000 LFTs have slightly increased WBC normalized, lactate 0.4 Sodium 135 Exam Narrative: Exam Narrative: PHYSICAL EXAM General: Pleasant, conversant, NAD HEENT: Normocephalic, atraumatic, sclera white, EOMI, oral mucosa moist Cardiovascular: RRR, S1S2. No pitting edema Pulmonary: CTA bilaterally without rhonchi, rales, expiratory wheezes. No dyspnea Abdominal: Soft, nondistended, RUQ tenderness without guarding Neurological: Alert, answering questions appropriately, cranial nerves intact, no focal findings Extremities: No gross joint deformity or swelling. AROMI. Neurovascularly intact Skin: Warm, dry. Const: Vital Signs, click to edit/add: Vital Signs - 24 hr 02/18/25 12:50 02/18/25 13:50 02/18/25 17:24 Temperature 96 F L Pulse Rate 73 66 Pulse Rate [Pulse Oximeter] 75 Pulse Rate [Right Radial] Respiratory Rate 24 16 16 Blood Pressure 111/60 115/63 Blood Pressure [Le ft Arm] Blood Pressure [Ri ght Upper Arm] 110/76 Pulse Oximetry 96 98 95 Oxygen Delivery Me thod Room Air Room Air Room Air 02/18/25 19:06 02/18/25 23:00 02/18/25 23:33 Temperature 97.5 F L 97.4 F L Pulse Rate 82 Pulse Rate [Pulse Oximeter] 89 Pulse Rate [Right Radial] 77 Respiratory Rate 16 16 Blood Pressure Blood Pressure [Le ft Arm] 110/76 98/60 Blood Pressure [Ri ght Upper Arm] Pulse Oximetry 97 96 Oxygen Delivery Me thod Room Air Room Air 02/19/25 02:55 02/19/25 07:00 02/19/25 08:33 Temperature 97.9 F Pulse Rate 78 Pulse Rate [Pulse Oximeter] 86 78 Pulse Rate [Right Radial] Respiratory Rate 16 18 Blood Pressure Blood Pressure [Le ft Arm] 97/63 115/68 Blood Pressure [Ri ght Upper Arm] Pulse Oximetry 97 97 Oxygen Delivery Me thod Room Air Room Air Labs Labs: Laboratory Results - last 24 hr 02/18/25 02/18/25 02/18/25 12:58 13:18 13:53 WBC RBC Hgb Hct MCV MCH MCHC RDW Coeff of Jenifer Plt Count Neut % (Auto) Lymph % (Auto) [place] % (Auto) Eos % (Auto) Baso % (Auto) Neut # (Auto) Lymph # (Auto) [place] # (Auto) Eos # (Auto) Baso # (Auto) Abs Immat Gran (auto) Imm/Tot Granulo (auto) INR Sodium Potassium Chloride Carbon Dioxide Anion Gap BUN Creatinine Estimated Creat Clear Estimated GFR Glucose Lactate Calcium Total Bilirubin Direct Bilirubin AST ALT Alkaline Phosphatase POC Troponin I High Sensi 5.7 C-Reactive Protein Total Protein Albumin Triglycerides Lipase Procalcitonin Urine Color Yellow Urine Appearance Clear Urine pH 8.5 Ur Specific [place] 1.015 Urine Protein Negative Urine Glucose (UA) Negative Urine Ketones Negative Urine Blood Negative Urine Nitrite Negative Urine Bilirubin Negative Urine Urobilinogen 0.2 Ur Leukocyte Esterase Negative Urine RBC 0-2 Urine WBC 0-2 Ur Squamous Epith Cells Few Urine Bacteria Few A SARS-CoV-2 (PCR) Negative SARS-CoV-2 Influenza Type A (PCR) Negative PCR FLU A Influenza Type B (PCR) Negative PCR FLU B RSV (PCR) Negative PCR RSV Lab Acknowledgement 02/18/25 02/18/25 02/19/25 14:03 20:25 06:26 WBC 13.71 H 6.03 RBC 4.65 3.66 L Hgb 14.2 11.0 L Hct 44.6 35.6 MCV 96 97 MCH 31 30 MCHC 32 31 L RDW Coeff of Jenifer 12.9 Plt Count 271 290 Neut % (Auto) 80.3 H Lymph % (Auto) 10.6 L [place] % (Auto) 7.4 Eos % (Auto) 0.5 Baso % (Auto) 0.3 Neut # (Auto) 11.00 H Lymph # (Auto) 1.50 [place] # (Auto) 1.00 H Eos # (Auto) 0.10 Baso # (Auto) 0.00 Abs Immat Gran (auto) 0.10 Imm/Tot Granulo (auto) 0.9 INR 2.57 H Sodium 131 L 135 Potassium 3.9 4.2 Chloride 100 106 Carbon Dioxide 23 25 Anion Gap 8 4 L BUN 10 8 Creatinine 0.7 0.8 Estimated Creat Clear 73.51 64.32 Estimated GFR 103 88 Glucose 82 108 Lactate 0.4 L Calcium 8.7 8.4 Total Bilirubin 0.6 1.0 Direct Bilirubin 0.6 H AST 101 H 159 H ALT 87 H 169 H Alkaline Phosphatase 167 H 175 H POC Troponin I High Sensi C-Reactive Protein 3.2 H Total Protein 6.3 5.5 L Albumin 3.9 3.2 L Triglycerides 87 Lipase 05409 H 9600 H Procalcitonin 0.36 Urine Color Urine Appearance Urine pH Ur Specific [place] Urine Protein Urine Glucose (UA) Urine Ketones Urine Blood Urine Nitrite Urine Bilirubin Urine Urobilinogen Ur Leukocyte Esterase Urine RBC Urine WBC Ur Squamous Epith Cells Urine Bacteria SARS-CoV-2 (PCR) Influenza Type A (PCR) Influenza Type B (PCR) RSV (PCR) Lab Acknowledgement 02/19/25 08:30 WBC RBC Hgb Hct MCV MCH MCHC RDW Coeff of Jenifer Plt Count Neut % (Auto) Lymph % (Auto) [place] % (Auto) Eos % (Auto) Baso % (Auto) Neut # (Auto) Lymph # (Auto) [place] # (Auto) Eos # (Auto) Baso # (Auto) Abs Immat Gran (auto) Imm/Tot Granulo (auto) INR Sodium Potassium Chloride Carbon Dioxide Anion Gap BUN Creatinine Estimated Creat Clear Estimated GFR Glucose Lactate Calcium Total Bilirubin Direct Bilirubin AST ALT Alkaline Phosphatase POC Troponin I High Sensi C-Reactive Protein Total Protein Albumin Triglycerides Lipase Procalcitonin Urine Color Urine Appearance Urine pH Ur Specific [place] Urine Protein Urine Glucose (UA) Urine Ketones Urine Blood Urine Nitrite Urine Bilirubin Urine Urobilinogen Ur Leukocyte Esterase Urine RBC Urine WBC Ur Squamous Epith Cells Urine Bacteria SARS-CoV-2 (PCR) Influenza Type A (PCR) Influenza Type B (PCR) RSV (PCR) Lab Acknowledgement Test Added
--- NOTE | 2025-02-19 15:15 | PC.NURSE ---
The patient is pleasant and cooperative with cares. The patient reports mild tolerable pain throughout the day to her abdomen. Ultrasound was completed, and a clear liquid diet was started. Up independently, walked in the halls today. No reports of N/V. Call light within reach. Martha QUIÑONES BSN
[2025-02-19 15:28] LABS: INR 3.04 (0.91-1.10); Prothrombin Time 32.7 Seconds
[2025-02-19] MEDS: ATORVASTATIN CALCIUM 40 MG TABLET PO (20:34)
[2025-02-20] MEDS: PIPERACILLIN/TAZOBACTAM 3.375 GM in 0.9 % SODIUM CHLORIDE Mini-bag 100 ML IVPB ×2 (02:39→08:23)
[2025-02-20] MEDS: MORPHINE 4 MG/ML INJ IVP (02:46)
[2025-02-20] MEDS: SODIUM CHLORIDE 0.9 % (FLUSH) 10 ML SYRINGE 5 ML IVF (02:53)
[2025-02-20 02:55] VITALS: BP 120/73; PULSE 93; RESP 16; TEMP 36.7; O2SAT 95
--- NOTE | 2025-02-20 06:29 | PC.NURSE ---
End of shift note [id number]: Pt A&Ox4 and able to make needs known. She has been denying nausea throughout the shift with no vomiting noted. She has been tolerating?clear?liquid diet. IV fluids and antibiotics administered per?orders. Pt?up in?independent in?room and has been continent of bladder.?VSS- pt has been afebrile and on RA throughout the shift.?Tele in place with NSR noted. Call light within reach.??
[2025-02-20 07:00] VITALS: PULSE 88
[2025-02-20 07:20] LABS: Hematocrit* 32.9 % (33.0-51.0); Hemoglobin* 10.2 gm/dL (12.0-16.0); Mean Corpuscular HGB Conc 31 gm/dL (32-36); Mean Corpuscular Hemoglobin 30 pg (26-34); Mean Corpuscular Volume 98 fL (80-100); Red Blood Count* 3.36 m/uL (4.00-5.20); White Blood Count* 7.01 K/uL (4.50-11.00)
[2025-02-20 07:27] LABS: Slide Review Reflex No
[2025-02-20 07:38] LABS: Albumin* 2.9 g/dL (3.3-5.0); Chloride* 104 mmol/L (96-114); INR 3.15 (0.91-1.10); Potassium* 3.7 mmol/L (3.6-5.1); Prothrombin Time 33.6 Seconds; Sodium* 132 mmol/L (135-149)
[2025-02-20 07:41] LABS: Alanine Aminotransferase* 114 U/L (4-35); Alkaline Phosphatase* 150 U/L (40-150); Anion Gap 5 mEq/L (7-15); Aspartate Amino Transferase* 59 U/L (12-35); Bilirubin Total* 0.6 mg/dL (0.1-1.5); Blood Urea Nitrogen* 4 mg/dL (7-30); Carbon Dioxide* 23 mmol/L (20-32); Creatinine* 0.6 mg/dL (0.5-1.5); Est. Creatinine Clearance* 85.76; Estimated Glomerular Filt Rate 107 ml/min; Total Protein* 5.1 g/dL (6.0-8.3)
[2025-02-20 07:42] LABS: Calcium* 8.0 mg/dL (8.4-10.6); Glucose* 86 mg/dL (60-115)
[2025-02-20 08:15] VITALS: BP 117/72; PULSE 102; RESP 16; TEMP 37; O2SAT 94
[2025-02-20] MEDS: DULOXETINE 30 MG CAPSULE DR 120 MG PO (08:24)
[2025-02-20] MEDS: EZETIMIBE 10 MG TABLET PO (08:24)
[2025-02-20] MEDS: CLOPIDOGREL 75 MG TABLET PO (08:24)
[2025-02-20] MEDS: METOPROLOL SUCCINATE (XL) 25 MG TAB 50 MG PO (08:24)
[2025-02-20] MEDS: OMEPRAZOLE 20 MG CAPSULE DR 40 MG PO (08:25)
[2025-02-20 08:30] VITALS: PULSE 102; RESP 16
--- NOTE | 2025-02-20 09:36 | PM.DS1 ---
DS: Providers Provider Date Seen: 02/20/25 Date of admission: 02/18/25 18:43 Primary care physician: Sisi Day DO Admitting Clinician: Kavita Davidson MD Attending Physician on discharge: HECTOR Jensen, [facility] Date of Discharge: 02/20/25 DS: Diagnosis Discharge Diagnosis (1) Acute pancreatitis: Status: Acute Problem details: -Patient denies alcohol use. MRCP showed no evidence of cholelithiasis or choledocholithiasis. checked triglyceride level: 87. -patient is on semaglutide. Acute pancreatitis was observed with semaglutide at rates similar to placebo during the SUSTAIN-6 trial. However Pancreatitis associated with GLP 1 agonists might present with atypical presentation, therefore the prevalence might be underreported, and other database studies have also shown conflicting results. (from the [place] Journal of gastroenterology). -CT scan showed acute interstitial pancreatitis & Gallbladder wall thickening may be secondary to acute pancreatitis. Differential diagnostic considerations include mild acute cholecystitis. -ED provider contacted our surgeon who recommended MRCP which showed No evidence of cholelithiasis or choledocholithiasis. Nondilated biliary tree. Redemonstration of peripancreatic and pancreatic parenchymal edema consistent with acute interstitial pancreatitis. Nondilated pancreatic duct. No evidence of pancreas divisum. Redemonstration of gallbladder wall thickening which could be secondary to acute pancreatitis. -CT scan and MRCP showed gallbladder wall thickening which could be related to mild acute cholecystitis versus secondary to acute pancreatitis, mildly elevated WBCs noted. Thus we will start her on Zosyn for now. -patient received 1L IV fluids bolus at the ED. Will put her on maintenance IV fluid 150 cc/hr, with monitoring for fluid overload as patient has history of heart failure with reduced ejection fraction. -pain management 02/19 pain has improved but persists. Has not taken any narcotics this morning. No nausea. Lipase significantly improved, 9600. LFTs rising slightly. Discussed with Dr. Hayes, General Surgery. Recommends gallbladder ultrasound then okay to start clear liquid diet. Decrease IVF and discontinue with adequate oral intake. Surgery will see her this afternoon after clinic. Continue Zosyn. Trend LFTs. First episode acute pancreatitis. Initial lipase > 35,000, improved to < 10,000 prior to discharge. Initial imaging findings as above. Gallbladder ultrasound on 02/19 shows no cholelithiasis or acute cholecystitis. No stones or sludge. No significant wall thickening or pericholecystic fluid. Tolerating advancement in diet without increased pain or nausea/vomiting. Discontinued IV antibiotics. No outpatient antibiotics prescribed. Okay for small doses of Tylenol or oxycodone as needed for pain. Patient was given copy of imaging and will follow up outpatient with General surgery or GI of her choosing. Close outpatient follow-up PCP. (2) Transaminitis: Status: Acute Problem details: LFTs noted to increase the day after admission. Initial imaging showing gallbladder wall thickening and concern for sludge at ampulla. Gallbladder ultrasound however without evidence of sludge, stones, or significant gallbladder wall thickening. Trending LFTs, with notable decrease on 02/20. Continuing to clinically improve. Outpatient follow-up with PCP, GI/General Surgery. (3) Obesity: Status: Acute Problem details: -Pt is on Semaglutide to Tx Obesity. -Discussed with the patient that there might be an association between semaglutide and pancreatitis. Patient has been recommended to hold semaglutide until further discussion with PCP. (4) Left ventricular mural thrombus: Status: Acute Problem details: -Currently patient is on warfarin & Plavix -warfarin 7.5 mg daily except for Wednesdays when she is to take 5 mg instead -INR goal of 2-3 -Patient has an appointment with her instrument and control technician on MondayFebruary 24 - will discuss plavix at that appt -Per Dr. Eddy hold warfarin for now - start patient on therapeutic enoxaparin 100sq bid 02/19 INR 2.57, hold this morning's enoxaparin dose. Continue Plavix. Discuss with surgery this afternoon when to resume warfarin (unless need for surgical intervention) -do not see evidence of Heme Onc consultation since this episode Patient has Cardiology follow-up on 02/24/2025 for ongoing management. Will discuss need for Plavix. Has otherwise been recommended to continue on warfarin rather than DOAC per Cardiology. (5) Thrombosis of right iliac artery: Status: Acute Problem details: -Patient states that she was told it was resolved (6) Anterior myocardial infarction: Status: Acute Problem details: -suspected perioperative apical infarct with mural thrombus 05/23/2023 -suspected that [place] occurred when she had her hemicolectomy following ruptured appendix. She had new onset atrial flutter on 05/22, subsequently given adenosine, metoprolol and ultimately digoxin and converted to sinus rhythm -has been on Plavix and Coumadin since (no stent) (7) On warfarin therapy: Status: Acute Problem details: -holding until General Surgery assesses On day of discharge, INR is 3.15. Discussed with pharmacy. Recommend holding Coumadin 02/20 and 02/21. Take 5 mg Coumadin on 02/22 and 02/23. Recheck INR on 02/24. (8) Heart failure with reduced ejection fraction: Status: Acute Problem details: -Echo at our facility back in May 2023 showed reduced ejection fraction of 40-45% - Reviewing the epic chart, echo done today February 18, Final Impressions: 1. Normal LV size, normal wall thickness, normal global systolic function with an estimated EF of 55 - 60%. 2. Apical akinesis, but could not assess for thrombus due to the ability to give contrast. (9) S/P right hemicolectomy: Status: Acute Problem details: -open right hemicolectomy for perforated appendicitis, 05/12/2023 -multiple complications postoperatively including left ventricular mural thrombus and right celiac artery thrombosis DS: Summary Hospital Course Hospital Course: Course of care and details as noted above. Admitted with 1st episode acute pancreatitis, nonalcoholic. Imaging and labs as above. Clinical improvement over course of 48 hours. Discharge with outpatient follow-up PCP, GI/general surgery of choosing. Remainder of chronic medical comorbidities were monitored and managed with home medications. Status at Discharge Functional status at discharge: independent ambulation Overall status at discharge: patient is back to baseline Time Spent with Patient Time attestation: Total time spent providing and/or coordinating discharge services: Time spent: Greater than 30 minutes Exam Narrative: Exam Narrative: PHYSICAL EXAM General: Pleasant, conversant, NAD Cardiovascular: RRR Pulmonary: No dyspnea Abdomen: Remains mildly tender RUQ but improved from yesterday. LUQ unremarkable. Neurological: Alert, answering questions appropriately Skin: Warm, dry. Const: Vital Signs, click to edit/add: Vital Signs - 24 hr 02/19/25 11:00 02/19/25 15:00 02/19/25 15:00 Temperature 98.0 F 98.0 F Pulse Rate Pulse Rate [Pulse Oximeter] 85 84 84 Respiratory Rate 18 18 18 Blood Pressure [Le ft Arm] Blood Pressure [Ri ght Arm] 119/84 107/74 Pulse Oximetry 96 98 Oxygen Delivery Me thod Room Air Room Air 02/19/25 19:49 02/19/25 23:00 02/19/25 23:02 Temperature 98.2 F Pulse Rate 84 Pulse Rate [Pulse Oximeter] 86 83 Respiratory Rate 18 16 Blood Pressure [Le ft Arm] 100/61 Blood Pressure [Ri ght Arm] Pulse Oximetry 95 Oxygen Delivery Me thod Room Air 02/19/25 23:12 02/20/25 02:55 Temperature 98.3 F 98.1 F Pulse Rate Pulse Rate [Pulse Oximeter] 83 93 Respiratory Rate 16 16 Blood Pressure [Le ft Arm] 103/62 120/73 Blood Pressure [Ri ght Arm] Pulse Oximetry 96 95 Oxygen Delivery Me thod Room Air Room Air DS: Data Data Completed and Pending Completed studies during hospitalization: Procedures Drainage of Abdomen Subcutaneous Tissue and Fascia, Open Approach, Diagnostic (05/22/23) Inspection of Peritoneal Cavity, Percutaneous Endoscopic Approach (05/11/23) Resection of Appendix, Open Approach (05/11/23) Resection of Right Large Intestine, Open Approach (05/11/23) Labs on day of discharge: Labs from last 24 hours 02/20/25 02/19/25 06:08 15:04 WBC 7.01 RBC 3.36 L Hgb 10.2 L Hct 32.9 L MCV 98 MCH 30 MCHC 31 L Plt Count 282 INR 3.15 H 3.04 H Sodium 132 L Potassium 3.7 Chloride 104 Carbon Dioxide 23 Anion Gap 5 L BUN 4 L Creatinine 0.6 Estimated Creat Clear 85.76 Estimated GFR 107 Glucose 86 Calcium 8.0 L Total Bilirubin 0.6 AST 59 H ALT 114 H Alkaline Phosphatase 150 Total Protein 5.1 L Albumin 2.9 L Imaging Gallbladder US: Attestation: I have reviewed the pertinent imaging results. Radiologist's impression: Gallbladder: No stones or sludge. No significant wall thickening (gallbladder wall measures 0.3 centimeters) or pericholecystic fluid. Negative sonographic Ruffin sign. Bile ducts: The common bile duct measures 6 mm in diameter. Imaged liver: Diffusely increased echogenicity consistent with hepatic steatosis without focal hepatic lesion. IMPRESSION: 1. No cholelithiasis or acute cholecystitis. 2. Hepatic steatosis. MRCP: Attestation: I have reviewed the pertinent imaging results. Radiologist's impression: Lungs: The lung bases are clear. No pleural or pericardial effusion. Liver: Hepatic steatosis Biliary tree and gallbladder: Fluid-filled gallbladder without stones. Gallbladder wall thickening to 6 mm. No intrahepatic biliary dilation. Top-normal common bile duct measuring up to 6 mm, the tapers normally toward the ampulla. There may be layering sludge the ampulla (2/16) Spleen: Unremarkable Pancreas: Similar moderate peripancreatic stranding. No pancreatic duct dilation. No evidence of pancreas divisum. Small amount of non organized fluid at the pancreatic tail measuring 1.5 cm (8/17). Adrenal glands: Unremarkable. Kidneys and ureters: No definite renal masses or hydronephrosis. GI tract: No evidence of obstruction or inflammation. Vasculature: The IVC and aorta are normal in caliber. Lymph nodes: No lymphadenopathy. Abdominal wall: Unremarkable Peritoneum: Trace free fluid in the bilateral upper quadrants Bones: Bone marrow signal is within normal limits. IMPRESSION: 1. Similar findings of acute interstitial pancreatitis. Small non-organized peripancreatic fluid collection at the tail measuring 1.5 cm. 2. Top-normal common bile duct without evidence of choledocholithiasis, however there may be layering sludge at the ampulla. 3. Gallbladder wall thickening is likely reactive. No cholelithiasis. 4. Hepatic steatosis CT scan - abdomen: Attestation: I have reviewed the pertinent imaging results. Radiologist's impression: ABDOMEN Liver: Normal contour and attenuation. Diffuse steatosis. Focal fatty infiltration. No significant focal lesion. No intrahepatic biliary ductal dilatation. Patent portal veins. Patent hepatic veins. Portal veins are not uniformly enhanced on the early hepatic arterial phase study. Hepatic veins are not enhanced on this hepatic arterial phase exam. Gallbladder: Nondistended. Suspected cholelithiasis (series 2; image 49). Mild gallbladder wall thickening. In this patient with peripancreatic fat stranding consistent with pancreatitis findings are suspicious for gallstone pancreatitis and secondary wall thickening of the gallbladder. Acute cholecystitis is also included in the differential diagnosis. Normal common duct caliber. Pancreas: Normal contour and attenuation. Note that discrimination between acute interstitial edematous pancreatitis and necrotizing pancreatitis is limited if symptom onset is less than 3-5 days prior to imaging. Inflammatory fat stranding surrounds the pancreatic head, neck and adjacent 2nd and 3rd duodenal segments. Findings are consistent with acute uncomplicated interstitial pancreatitis. No significant focal lesion. Nondilated duct. Spleen: Not enlarged. No significant focal lesion. Patent splenic artery and vein. Adrenal Glands: Symmetrical adrenal glands. No significant focal lesion. Kidneys: Normal bilateral renal attenuation. No significant focal lesion. Likely benign too small to characterize cyst in the posterior interpolar left renal cortex for which no further workup is indicated per ACR White Paper guidelines (2; 47). No nephrolith. No dilatation of the intrarenal collecting systems. No ureteral stone. Nondilated ureters. Patent renal arteries and veins. Gastrointestinal tract: Ileocecal resection. Nondilated bowel.. Vascular: Chronic mild aortoiliac atherosclerotic mural calcification. Abdominal aorta and its major proximal branches including the celiac, superior mesenteric, inferior mesenteric, renal, and bilateral common iliac arteries are patent. Patent superior mesenteric vein. Peritoneal Cavity/Retroperitoneum: No ascites. No adenopathy. PELVIS No bladder lesion is identified. Anteverted retroflexed uterus. Posterior uterine subserosal fibroid measuring 1.5 cm (2; 15). No significant ascites. Small volume low density pelvic ascites within physiologic limits of normal. No adenopathy. SKELETON AND BODY WALL Findings consistent with postsurgical changes in the periumbilical anterior abdominal wall. Supraumbilical anterior midline abdominal wall bulge into which the mid transverse colon protrudes consistent with a wide neck epigastric hernia (2; 66). Infiltration of the subcutaneous fat in the mid clavicular line of the infraumbilical anterior abdominal wall could be due to subcutaneously administered injections at these locations. Please correlate with the patient`s history. LOWER THORAX Partially included lower thoracic wall, lungs, pleural spaces and mediastinum are without significant incidental findings. IMPRESSION: 1. Acute uncomplicated interstitial pancreatitis. 2. Suspect small gallstones. This can be confirmed with ultrasound. 3. Gallbladder wall thickening may be secondary to acute pancreatitis. Differential diagnostic considerations include mild acute cholecystitis. No significant pericholecystic inflammatory changes. 4. Ileocolic resection. No associated complication. 5. Additional findings as above. Discharge Plan Discharge Disposition: Home, Self-Care Date of Admission: 02/18/25 18:43 Attending Provider on Discharge: Luci Montes Primary Care Provider: Sisi Day Condition: Guarded Anticipated Discharge Date/Time: 02/20/25 13:00 Discharge Medications: New oxycodone 5 mg tablet 5 mg PO Q6H PRN (Reason: pain) Qty: 10 0RF Continued nicotine 14 mg/24 hr patch 24 hour 1 patch topical DAILY PRN warfarin 5 mg tablet 5 - 7.5 mg PO QPM Rx Instructions: 5 MG ON MONDAY, 7.5 MG ALL OTHER DAYS OF THE WEEK ezetimibe 10 mg tablet 10 mg PO DAILY duloxetine 60 mg capsule,delayed release(DR/EC) 120 mg PO DAILY lisinopril 2.5 mg tablet 2.5 mg PO DAILY pantoprazole 40 mg tablet,delayed release (DR/EC) 40 mg PO DAILY atorvastatin 40 mg tablet 40 mg PO DAILY clopidogrel 75 mg tablet 75 mg PO DAILY bupropion HCl 300 mg tablet extended release 24 hr 300 mg PO DAILY metoprolol succinate 50 mg tablet extended release 24 hr 50 mg PO DAILY Held Wegovy 1.7 mg/0.75 mL pen injector 1.7 mg subcut WE Hold Instructions: Resume on 03/06/25. Hold until further discussion with your PCP Discharge Orders: Discharge Order (Routine); Ordered 02/20/25 Ordered By: Luci Montes Additional Instructions: You do not need any further antibiotics. Outpatient follow-up with your PCP and recheck of LFTs. Outpatient follow-up with General Surgery/GI of your choice. You have been given a copy of your imaging. Continue to slowly advance your diet. Return to ER if increasing pain, nausea, vomiting. Small doses of Tylenol, 650 mg every 8 hours, or oxycodone as needed for pain. Do not take your Wegovy until follow up discussion with your PCP. Your INR today is 3.15. Do not take your coumadin or Monday. Take 5mg on Monday on Monday. Recheck your INR on Monday. Follow up with Cardiology on Monday as previously scheduled. Activity Level: Activity as Tolerated Discharge Diet: Regular Follow Up Appointments: Sisi Day DO [Primary Care Provider, Family Practice] Referral Note: 5-7 days, recheck LFTs Forms: [facility] Info Instructions
--- NOTE | 2025-02-20 09:55 | W.PC.NUTR.NO ---
Nutrition Progress Note Progress Note Progress Note: RDN with diet education related to pancreatitis. Patient admitted for pancreatitis, however etiology is unclear. She reports limiting alcohol intake and not gallstones per MD. History includes obesity, recently started on semaglutide. Current weight 98.928kg; height 157.48cm; BMI 39.9 kg/m2. Weight loss noted, however not significant loss. Current diet is Regular. She has not yet ordered meal yet. RDN visited with patient whom reports she is going to get s second opinion related to her diagnosis of pancreatitis. She did accept diet education related to pancreatitis though. Patient was provided diet education on a low fat diet. Discussed foods to include and foods to avoid, limiting to 30 grams of fat per day. Education also provided following a low fat diet (about 60 grams/day) long-term. Verbal and written information as well as a sample menu provided from [facility]. Patient verbalized understanding. RDN's contact information was provided and patient was encouraged to contact RDN with questions.
[2025-02-20 11:00] VITALS: BP 108/66; PULSE 86; RESP 16; TEMP 36.8; O2SAT 98
--- NOTE | 2025-02-20 11:57 | P.GSPN_ITS ---
Subjective Subjective Date Seen: 02/20/25 Interval history: Regina is doing well today. She has much less pain. No nausea. She is still belching. She did eat a soft diet for breakfast and had some eggs for lunch and that went down well. She is going to try a grilled cheese. She was feeling lightheaded when she went to the bathroom this morning which she thinks is because she has not been eating. This has resolved and she was just walking with PT in the hallway. Exam Narrative: Exam Narrative: General: No acute distress Abdomen: Minimally tender to palpation in the epigastric region. This is much improved from yesterday. Const: Vital Signs, click to edit/add: Vital Signs - 24 hr 02/19/25 15:00 02/19/25 15:00 02/19/25 19:49 Temperature 98.0 F 98.2 F Pulse Rate Pulse Rate [Pulse Oximeter] 84 84 86 Respiratory Rate 18 18 18 Blood Pressure [Le ft Arm] 100/61 Blood Pressure [Ri ght Arm] 107/74 Pulse Oximetry 98 95 Oxygen Delivery Me thod Room Air Room Air 02/19/25 23:00 02/19/25 23:02 02/19/25 23:12 Temperature 98.3 F Pulse Rate 84 Pulse Rate [Pulse Oximeter] 83 83 Respiratory Rate 16 16 Blood Pressure [Le ft Arm] 103/62 Blood Pressure [Ri ght Arm] Pulse Oximetry 96 Oxygen Delivery Me thod Room Air 02/20/25 02:55 02/20/25 08:15 Temperature 98.1 F 98.6 F Pulse Rate Pulse Rate [Pulse Oximeter] 93 102 H Respiratory Rate 16 16 Blood Pressure [Le ft Arm] 120/73 Blood Pressure [Ri ght Arm] 117/72 Pulse Oximetry 95 94 Oxygen Delivery Me thod Room Air Room Air Labs/Imaging Labs Labs: Lipase was not recheck this morning, however all LFTs are trending down. Total bilirubin is 0.6 from 1.0. AST 59 from 159. ALT 114 from 169. Alkaline phosphatase is 150 from 175. Progress Note:A&P Assessment and plan (1) Transaminitis: Status: Acute (2) Obesity: Status: Acute (3) Heart failure with reduced ejection fraction: Status: Acute (4) On warfarin therapy: Status: Acute (5) Left ventricular mural thrombus: Status: Acute (6) Acute pancreatitis: Status: Acute Plan The patient is a 54-year-old female with pancreatitis of likely biliary etiology. No stones were seen on any of her imaging, however there may have been some sludge noted on the MRCP. With the slight elevation in liver tests this seems like the most likely culprit. She is not a heavy drinker. Occasionally G LP 1 inhibitors can cause pancreatitis, however I would not expect that to be the case with elevated liver tests. The patient does have a history of MRI, heart failure with reduced ejection fraction and mural thrombus after appendectomy approximately a year and a half ago. I think it is reasonable that she see her alcohol still operator and then she may follow up as an outpatient to further discuss surgery. The patient is actually also interested in a 2nd opinion. I did provide her with her imaging studies so that she can take this with her if she so desires. -continue to advance diet and discharge the patient is pain-free.
[2025-02-20] MEDS: ACETAMINOPHEN 325 MG TABLET 650 MG PO (11:59)
--- NOTE | 2025-02-20 15:48 | PC.NURSE ---
End of Shift: Patient pleasant and cooperative, A&O. VSS, afebrile. Pt reported feeling heart palpitations this morning, MD notified, EKG complete, no new orders. IV removed with tip intact. Discharge instructions provided, all questions answered. D/C to home
== END 2025-02-20 14:20 | disposition home or self-care (01) | DRG 438 ==
LOC: ED 18:27 → MEDSURG 18:44
PROVIDERS: Physician Assistant; Admitting Provider Student in an Organized Health Care Education/Training Program; Emergency Provider Student in an Organized Health Care Education/Training Program; PCP Family Medicine; Visit Provider Student in an Organized Health Care Education/Training Program
DX: K85.90 Acute pancreatitis without necrosis or infection, unspecified (principal); I50.21 Acute systolic (congestive) heart failure; I24.0 Acute coronary thrombosis not resulting in myocardial infarction; I11.0 Hypertensive heart disease with heart failure; R74.01 Elevation of levels of liver transaminase levels; E66.01 Morbid (severe) obesity due to excess calories; Z79.01 Long term (current) use of anticoagulants; Z79.02 Long term (current) use of antithrombotics/antiplatelets; Z90.49 Acquired absence of other specified parts of digestive tract; Z87.891 Personal history of nicotine dependence; Z79.899 Other long term (current) drug therapy; I25.2 Old myocardial infarction; Z68.39 Body mass index [BMI] 39.0-39.9, adult
CPT/HCPCS: 36415; 74177; 74181; 76705; 80048; 80053; 80076; 81001; 82565; 83605; 83690; 84145; 84478; 84484; 85025; 85027; 85610; 86140; 87086; 87631; 93005; 99285; A9270; J1650; J2270; J2543; J7030; J7120; Q9967